=== PATIENT | male | born 1955 | race Caucasian/White ===

== ENCOUNTER → 2020-06-13 13:44 | Outpatient (BNVA) | payer MEDICAID, SELFPAY | PROVIDERS: Visit Provider Nurse Practitioner | DX: Z76.89 Persons encountering health services in other specified circumstances (principal) ==

== ENCOUNTER → 2020-12-12 13:46 | Outpatient (BNVA) | payer MEDICARE, MEDICAID, SELFPAY | PROVIDERS: Visit Provider Nurse Practitioner | DX: Z13.89 Encounter for screening for other disorder (principal) | CPT/HCPCS: Q3014 ==

== ENCOUNTER 2021-02-15 16:00 | Outpatient (RCR) | payer MEDICARE, SELFPAY | END 2021-03-09 10:26 | disposition home or self-care (01) | LOC: HO.PT 16:00 | PROVIDERS: PCP Internal Medicine; Visit Provider Internal Medicine | DX: M54.9 Dorsalgia, unspecified (principal) | CPT/HCPCS: 97110; 97140; 97150; 97162; 97530 ==

== ENCOUNTER 2021-05-10 15:30 | Outpatient (RCR) | payer MEDICARE, SELFPAY | END 2021-06-02 09:13 | disposition home or self-care (01) | LOC: HO.PT 15:30 | PROVIDERS: Visit Provider Internal Medicine | DX: R42 Dizziness and giddiness (principal) | CPT/HCPCS: 95992; 97162 ==

== ENCOUNTER → 2021-06-19 15:33 | Outpatient (BNVA) | payer OTHER, SELFPAY | PROVIDERS: PCP Internal Medicine; Visit Provider Nurse Practitioner ==

== ENCOUNTER 2021-11-21 12:58 | Outpatient (REF) | payer OTHER, SELFPAY | END 2021-11-21 12:59 | disposition home or self-care (01) | LOC: HO.XRAY 12:58 | PROVIDERS: Absent Provider Internal Medicine; PCP Internal Medicine; Visit Provider Family Medicine | DX: Z13.89 Encounter for screening for other disorder (principal) ==

== ENCOUNTER 2022-01-03 08:49 | Outpatient (REF) | payer OTHER, SELFPAY ==
--- NOTE | ~2022-01-03 | XR_ITS ---
EXAMINATION: XR SINUSES CLINICAL INFORMATION: Chronic frontal sinusitis COMPARISON: None TECHNIQUE: 3 views of the sinuses were obtained. FINDINGS: Paranasal sinuses appear clear without air-fluid levels. No fractures are identified. No radiodense foreign bodies. XR/XR sinus min 3V IMPRESSION: Unremarkable examination.
== END 2022-01-03 08:50 | disposition home or self-care (01) ==
LOC: HO.XRAY 08:49
PROVIDERS: Visit Provider Internal Medicine
DX: J32.1 Chronic frontal sinusitis (principal)
CPT/HCPCS: 70220

== ENCOUNTER → 2022-02-08 12:31 | Outpatient (BNVA) | payer OTHER, SELFPAY | PROVIDERS: PCP Internal Medicine; Visit Provider Internal Medicine Pulmonary Disease | DX: J45.909 Unspecified asthma, uncomplicated (principal); R06.09 Other forms of dyspnea | CPT/HCPCS: 99202 ==

== ENCOUNTER 2022-02-12 13:07 | Outpatient (REF) | payer OTHER, SELFPAY ==
[2022-02-12 13:21] LABS: MANUAL DIFF FLAG NO
[2022-02-12 13:47] LABS: Basophils Percent Auto 0.9 % (0-2); Eosinophils Absolute Auto 0.1 X10*3/uL (0.0-0.4); Eosinophils Percent Auto 2.2 % (0-4); Hematocrit 40.8 % (42.0-52.0); Hemoglobin 13.6 g/dl (14.0-18.0); Imm Gran Abs Auto 0.01 X10*3/uL (0.00-0.03); Imm Gran Pct Auto 0.2 % (0.0-0.4); Lymphocytes Absolute Auto 1.6 X10*3/uL (1.2-4.9); Lymphocytes Percent Auto 36.9 % (20-40); Mean Corpuscular HGB Conc 33.3 g/dl (31.0-36.0); Mean Corpuscular Hemoglobin 30.5 pg (27.0-33.0); Mean Corpuscular Volume 91.5 fL (80.0-98.0); Mean Platelet Volume 9.2 fL (9.4-12.4); Monocytes Absolute Auto 0.4 X10*3/uL (0.1-1.2); Monocytes Percent Auto 9.7 % (2-11); Neutrophils Absolute Auto 2.2 x10*3/uL (2.0-8.3); Neutrophils Percent Auto 50.1 % (45-73); Platelet Count 150 X10*3/uL (160-400); Red Blood Count 4.46 X10*6/uL (4.60-5.80); Red Cell Distribution Width 12.3 % (11.0-16.0); White Blood Count 4.5 X10*3/uL (4.8-10.8)
== END 2022-02-12 13:08 | disposition home or self-care (01) ==
LOC: HO.LAB 13:07
PROVIDERS: PCP Internal Medicine; Visit Provider Internal Medicine Pulmonary Disease
DX: J45.909 Unspecified asthma, uncomplicated (principal)
CPT/HCPCS: 36415; 82785; 85025; 86003

== ENCOUNTER 2022-04-09 12:00 | Outpatient (REF) | payer OTHER, SELFPAY ==
--- NOTE | 2022-04-09 17:33 | PFT_ITS ---
INDICATION: Dyspnea. SPIROMETRY: FEV1 to FVC of 84% with an FEV1 of 3.39 L, which is at 94% predicted; FVC of 4.03 L, which is 37% predicted. Post bronchodilators, there was a significant improvement of the FEV1 by 13%. The maximum voluntary ventilation 77% predicted. LUNG VOLUMES: Total lung capacity 85% predicted with an expiratory reserve volume of 18% predicted secondary to an elevated BMI. DIFFUSION CAPACITY: DLCO 76% predicted, correcting to 95% when correcting for the alveolar volume. COMPARISONS: None. INTERPRETATION: No obstructive nor restrictive ventilatory defects identified. The patient did have a significant response to bronchodilators noted. Mild decrease in maximum voluntary ventilation secondary to likely deconditioning. Lung volumes are low normal, secondary to likely elevated BMI. There is some mild diffusion impairment, although it corrects to normal when correcting for the alveolar volume. Clinical correlation warranted. Channing Pedraza MD MR/MODL / [id number]
== END 2022-04-09 12:01 | disposition home or self-care (01) ==
LOC: HO.RESP 12:00
PROVIDERS: PCP Internal Medicine; Visit Provider Internal Medicine Pulmonary Disease
DX: J45.909 Unspecified asthma, uncomplicated (principal); R06.00 Dyspnea, unspecified; Z91.09 Other allergy status, other than to drugs and biological substances
CPT/HCPCS: 94060; 94727; 94729; 99212

== ENCOUNTER 2022-04-25 10:11 | Outpatient (REF) | payer OTHER, SELFPAY | END 2022-04-25 10:12 | disposition home or self-care (01) | LOC: HO.MDS 10:11 | PROVIDERS: Visit Provider Internal Medicine Pulmonary Disease | DX: J45.50 Severe persistent asthma, uncomplicated (principal) | CPT/HCPCS: 96372; J2357 ==

== ENCOUNTER 2022-05-08 11:40 | Outpatient (REF) | payer OTHER, SELFPAY ==
--- NOTE | ~2022-05-08 | XR_ITS ---
EXAMINATION: XR KNEE, LEFT CLINICAL INFORMATION: Pain COMPARISON: None TECHNIQUE: Four views of the left knee. FINDINGS: Bone alignment is normal. No fracture or dislocation is seen. There is joint space narrowing at the femoral tibial joints. There is degenerative meniscal calcification. There are small osteophytes at the patellofemoral joint. There is no joint effusion. XR/XR knee LT 4V IMPRESSION: Degenerative changes.
== END 2022-05-08 11:41 | disposition home or self-care (01) ==
LOC: HO.XRAY 11:40
PROVIDERS: Absent Provider Internal Medicine; PCP Internal Medicine; Visit Provider Emergency Medicine
DX: M25.562 Pain in left knee (principal)
CPT/HCPCS: 73564

== ENCOUNTER 2022-05-09 11:29 | Outpatient (REF) | payer OTHER, SELFPAY | END 2022-05-09 11:30 | disposition home or self-care (01) | LOC: HO.MDS 11:29 | PROVIDERS: Visit Provider Internal Medicine Pulmonary Disease | DX: J45.50 Severe persistent asthma, uncomplicated (principal) | CPT/HCPCS: 96372; J2357 ==

== ENCOUNTER 2022-06-08 12:50 | Outpatient (REF) | payer OTHER, SELFPAY | END 2022-06-08 12:51 | disposition home or self-care (01) | LOC: HO.MDS 12:50 | PROVIDERS: Visit Provider Internal Medicine Pulmonary Disease | DX: J45.50 Severe persistent asthma, uncomplicated (principal) | CPT/HCPCS: 96372 ==

== ENCOUNTER 2022-06-25 13:21 | Outpatient (REF) | payer OTHER, SELFPAY | END 2022-06-25 13:22 | disposition home or self-care (01) | LOC: HO.HOSX 13:21 | PROVIDERS: Visit Provider Physician Assistant | DX: Z13.89 Encounter for screening for other disorder (principal) ==

== ENCOUNTER 2022-07-10 10:49 | Outpatient (REF) | payer OTHER, SELFPAY ==
--- NOTE | ~2022-07-10 | XR_ITS ---
EXAMINATION: KNEE X-RAY CLINICAL INFORMATION: Pain COMPARISON: Left knee x-ray April 2022 TECHNIQUE: Standing AP view of both knees and lateral and sunrise view of the right knee FINDINGS: Right knee: There may be mild medial subluxation of the distal femur respect to the proximal tibia. Bone alignment is otherwise normal. No fracture or dislocation. There is tricompartment arthritis and degenerative meniscal calcification. There is a small joint effusion. Standing AP view of the left knee demonstrates arthritis and degenerative meniscal calcification at the femoral tibial joints. XR/XR knee standing BI IMPRESSION: Right knee: Tricompartment arthritis and small joint effusion.
--- NOTE | ~2022-07-10 | XR_ITS ---
EXAMINATION: XR CHEST CLINICAL INFORMATION: Chest wall pain COMPARISON: None TECHNIQUE: 2 views of the chest were obtained. FINDINGS: No significant abnormality is noted involving the heart, lungs, mediastinum, bony thorax or soft tissues. XR/XR chest 2V IMPRESSION: Unremarkable chest exam
--- NOTE | ~2022-07-10 | XR_ITS ---
EXAMINATION: KNEE X-RAY CLINICAL INFORMATION: Pain COMPARISON: Left knee x-ray April 2022 TECHNIQUE: Standing AP view of both knees and lateral and sunrise view of the right knee FINDINGS: Right knee: There may be mild medial subluxation of the distal femur respect to the proximal tibia. Bone alignment is otherwise normal. No fracture or dislocation. There is tricompartment arthritis and degenerative meniscal calcification. There is a small joint effusion. Standing AP view of the left knee demonstrates arthritis and degenerative meniscal calcification at the femoral tibial joints. XR/XR knee RT 2V IMPRESSION: Right knee: Tricompartment arthritis and small joint effusion.
== END 2022-07-10 10:50 | disposition home or self-care (01) ==
LOC: HO.XRAY 10:49
PROVIDERS: PCP Family Medicine; Visit Provider Family Medicine
DX: M25.561 Pain in right knee (principal); M25.562 Pain in left knee; R07.89 Other chest pain
CPT/HCPCS: 71046; 73560; 73565

== ENCOUNTER → 2022-07-20 12:11 | Outpatient (BNVA) | payer OTHER, SELFPAY | PROVIDERS: PCP Family Medicine; Visit Provider Nurse Practitioner | DX: K59.04 Chronic idiopathic constipation (principal); K21.9 Gastro-esophageal reflux disease without esophagitis | CPT/HCPCS: 99212 ==

== ENCOUNTER → 2022-08-29 13:41 | Outpatient (BNVA) | payer OTHER, SELFPAY | PROVIDERS: PCP Family Medicine; Visit Provider Nurse Practitioner | DX: Z01.818 Encounter for other preprocedural examination (principal); K59.04 Chronic idiopathic constipation; K21.9 Gastro-esophageal reflux disease without esophagitis; D12.6 Benign neoplasm of colon, unspecified | CPT/HCPCS: 99212 ==

== ENCOUNTER 2022-08-31 14:23 | Outpatient (REF) | payer OTHER, SELFPAY ==
[2022-08-31 15:17] LABS: Alanine Aminotransferase 17 U/L (0-40); Albumin Level 4.1 g/dL (3.5-5.0); Alkaline Phosphatase 47 U/L (39-117); Anion Gap 14 (12-20); Aspartate Amino Transferase 25 U/L (5-37); Bilirubin Total 0.7 mg/dL (0.0-1.0); Blood Urea Nitrogen 13 mg/dL (9-16); Calcium 8.9 mg/dL (8.4-10.2); Carbon Dioxide 23 mmol/L (22-29); Chloride 107 mmol/L (96-108); Estimated Glomerular Filt Rate > 60; Glucose Random 131 mg/dL (60-115); Potassium 4.2 mmol/L (3.3-5.1); Sodium 140 mmol/L (135-145); Total Protein 6.9 g/dL (6.5-8.0)
== END 2022-08-31 14:24 | disposition home or self-care (01) ==
LOC: HO.LAB 14:23
PROVIDERS: Visit Provider Nurse Practitioner
DX: Z01.818 Encounter for other preprocedural examination (principal); D12.6 Benign neoplasm of colon, unspecified; J45.909 Unspecified asthma, uncomplicated
CPT/HCPCS: 36415; 80053; 82785

== ENCOUNTER → 2022-09-05 13:09 | Outpatient (BNVA) | payer OTHER, SELFPAY | PROVIDERS: PCP Family Medicine; Visit Provider Internal Medicine Pulmonary Disease | DX: J45.909 Unspecified asthma, uncomplicated (principal); Z91.09 Other allergy status, other than to drugs and biological substances; Z79.899 Other long term (current) drug therapy | CPT/HCPCS: 99212 ==

== ENCOUNTER → 2022-12-13 14:40 | Outpatient (BNVA) | payer OTHER, SELFPAY | PROVIDERS: PCP Family Medicine; Visit Provider Nurse Practitioner | DX: K59.04 Chronic idiopathic constipation (principal); K21.9 Gastro-esophageal reflux disease without esophagitis; D12.6 Benign neoplasm of colon, unspecified | CPT/HCPCS: 99212 ==

== ENCOUNTER 2023-01-28 10:02 | Emergency (ER) | payer OTHER, SELFPAY ==
--- NOTE | 2023-01-28 10:59 | ED.GENADULT ---
HPI - General Adult General Chief complaint: General Medical Time Seen by Provider: 01/28/23 10:56 Source: patient Mode of arrival: ambulatory Limitations: language barrier History of Present Illness HPI narrative: Patient is a 67 year old assigned male at with a history of HTN presenting to the emergency department today with intermittent lightheadedness since switching his blood pressure medications. Patient states that he switched his blood pressure medications a little while ago and ever since he has been having intermittent bouts of lightheadedness. Patient states that he was seen by a new doctor who put him back on his original medication, he is starting to feel better but still wants to be checked. Patient denies any dizziness, abdominal pain, nausea, vomiting, fever, chills, blurry vision, double vision, loss of vision, chest pain, difficulty breathing, shortness of breath, back pain, night sweats, pain with urination, increased urinary frequency, increased urinary urgency, blood in his urine or stool, syncope or a near syncopal episode, recent trauma or falls, bowel incontinence, bladder incontinence, bowel retention, bladder retention, or any other complaints at this time. Onset (ago): day(s) Severity: mild Severity scale (1-10): 2 Relieving factors: none Exacerbating factors: none Associated symptoms: denies other symptoms Treatments prior to arrival: none Related Data Home Medications Medication Instructions Recorded Confirmed acetaminophen 500 mg tablet 500 mg PO Q6H PRN 02/08/22 budesonide-formoterol HFA 160 inhalation 02/08/22 mcg-4.5 mcg/actuation aerosol inhaler (Symbicort) fluticasone propionate 50 spray intranasal 02/08/22 mcg/actuation nasal spray,suspension gabapentin 800 mg tablet 800 mg PO TID 02/08/22 loratadine 10 mg tablet (Allergy 10 mg PO DAILY 02/08/22 Relief (loratadine)) montelukast 10 mg tablet 10 mg PO DAILY 02/08/22 quetiapine 300 mg tablet 300 mg PO BEDTIME 02/08/22 temazepam 15 mg capsule 15 mg PO BEDTIME PRN 02/08/22 terazosin 5 mg capsule 5 mg PO BEDTIME 02/08/22 valsartan 80 mg tablet 80 mg PO DAILY 02/08/22 albuterol sulfate 90 mcg/actuation 2 inh inhalation PRN 08/29/22 aerosol inhaler lidocaine 5 % topical ointment topical QAM 08/29/22 tramadol 50 mg tablet 100 mg PO Q8H PRN severe pain 08/29/22 docusate sodium 100 mg capsule 100 mg PO DAILY 12/13/22 (Stool Softener) ketotifen fumarate 0.025 % (0.035 1 drp ophthalmic (eye) BID 12/13/22 %) eye drops magnesium hydroxide 400 mg/5 mL 400 mg PO DAILY PRN 12/13/22 oral suspension (Barron Milk of Magnesia) olmesartan 20 mg tablet 20 mg PO QAM 12/13/22 polyvinyl alcohol 1.4 % eye drops 1 drp ophthalmic (eye) TID-QID PRN 12/13/22 (Artificial Tears (polyvinyl alcohol)) sildenafil 100 mg tablet 100 mg PO DAILY PRN 12/13/22 Previous Rx's Medication Instructions Recorded linaclotide 72 mcg capsule 72 mcg PO QAM #30 caps 08/29/22 (Linzess) omeprazole 20 mg capsule,delayed 20 mg PO BID #60 caps 08/29/22 release peg 3350-electrolytes 236 240 ml PO Q10M 1 day #4,000 mL 08/29/22 gram-22.74 gram-6.74 gram-5.86 gram solution (Golytely) linaclotide 145 mcg capsule 145 mcg PO QAM #30 caps 12/13/22 (Linzess) Allergies Allergy/AdvReac Type Severity Reaction Status Date / Time aspirin [ASPIRIN] Allergy Severe ANAPHYLAXIS, Verified 12/13/22 14:48 rash Review of Systems Constitutional: Constitutional: Reports no additional constitutional complaints, Denies chills, Denies fever(s) and Denies night sweats Eyes: Eyes: Reports no additional eye complaints, Denies blurry vision, Denies change in vision, Denies diplopia, Denies eye discharge, Denies loss of vision and Denies eye pain ENT: Denies dizziness Cardiovascular: Cardiovascular: Reports no additional cardiovascular complaints, Denies chest pain, Denies lightheadedness, Denies Loss of Consciousness and Denies dyspnea Respiratory: Respiratory: Reports no additional respiratory complaints and Denies dyspnea Gastrointestinal: Gastrointestinal: Reports no additional gastrointestinal complaints, Denies abdominal pain, Denies melena, Denies hematochezia, Denies change in bowel habits and Denies change in stool character Genitourinary: Genitourinary: Reports no additional male genitourinary complaints, Denies hematuria, Denies oliguria, Denies difficulty urinating, Denies dysuria, Denies urinary frequency, Denies urinary hesitancy, Denies urinary incontinence and Denies urinary urgency Musculoskeletal: Musculoskeletal: Reports no additional musculoskeletal complaints, Denies numbness and Denies tingling Neurologic: Denies dizziness, Denies loss of vision, Denies numbness and Denies tingling Comments: lightheadedness Psychiatric: Psychiatric: Reports no additional psychiatric complaints Endocrine: Endocrine: Reports no additional endocrine complaints Hematologic/Lymphatic: Hematologic/Lymphatic: Reports no additional hematologic/lymphatic complaints Allergic/Immunologic: Allergic/Immunologic: Reports no additional allergic/immunologic complaints PMFSH Past Medical History Attestation statement: The following information was validated with the patient. Source: old records reviewed and nursing notes reviewed Surgical History Hx of colonoscopy Hx of hernia repair Hx of umbilical hernia repair Family History Family History Father Prostate cancer Mother Alzheimer disease Sister Cancer Social History Social History Alcohol intake: current Alcohol intake frequency: does not drink Patient Tobacco Use Status: Former Tobacco user Advance Directives: No Advance Directives Information Provided: Yes Physical Exam ED Vital Signs: Vital Signs - 24 hr 01/28/23 11:01 Temperature 98 F Pulse Rate 89 Respiratory Rate 12 Blood Pressure 139/75 Pulse Oximetry 96 Oxygen Delivery Method Room Air BMI result Body Mass Index 32.8 Const General: cooperative, no acute distress, alert and awake Nutritional Appearance: well nourished Orientation/consciousness: patient oriented x3 Limitations: no limitations [facility] Head: Yes normal to inspection and Yes atraumatic Ears: hearing grossly normal bilaterally and external ears normal General nose exam: Normal external nose present, no nasal discharge noted and no epistaxis Face and sinus: Yes normal facial exam, No abrasion and No laceration Mouth: Normal oral and palatal mucosa present, no drooling and no muffled voice Eyes General: appearance normal, both eyes and all related structures Periorbital: periorbital findings normal Eyelids: Yes eyelids normal Conjunctivae: conjunctivae normal Pupils: Equal, round and reactive pupils present EOM: EOMs intact bilaterally Neck Neck: Yes normal visual inspection, Yes full ROM and Yes no lymphadenopathy Chest Chest palpation & inspection: normal inspection of the chest Resp Effort & Inspection: normal respiratory effort and able to speak in complete sentences Auscultation: clear to auscultation bilaterally Cardio Rate: regular rate Rhythm: regular rhythm GI Inspection: Yes normal to inspection Palpation (GI): Soft to palpation, not firm, nontender and no guarding Neuro General: patient oriented x3 and moves all extremities Cranial nerves: Yes Equal, round and reactive pupils present Cognition (Neuro): normal cognition Motor exam (neuro): 5/5 motor strength present throughout Sensory Exam: Normal double simultaneous stimulation for sensation Coordination: [id number] test normal Extrem General: Yes normal to inspection, Yes full ROM and Yes capillary refill normal Psych Appearance: grossly normal Mental Status: mental status grossly normal Affect: normal affect Attitude: cooperative Thought process: Normal thought process present Thought content: Normal thought content present Insight: Good insight present (Psych) Medical Decision Making Medical Decision Making [facility] Narrative: Patient is a 67 year old assigned male at with a history of HTN presenting to the emergency department today with intermittent lightheadedness after a medication change. Patient's physical exam was unremarkable. Patient's blood work was unremarkable. Patient's EKG was unremarkable. I explained my physical exam findings as well as all test results to the patient. I answered all questions asked by the patient. I stressed the importance of the patient taking his medication as prescribed including reverting back to his old HTN medication and stopping his new one. I stressed the importance of the patient following up with his new primary care provider. I stressed the importance of the patient returning to the emergency department immediately if his symptoms were to worsen or if he were to develop any dizziness, shortness of breath, difficulty breathing, chest pain, blurry vision, loss of vision, nausea, vomiting, abdominal pain, fever, chills, back pain, or any other complaints. Patient verbalized agreement and understanding with this treatment plan and discharge. Differential Diagnosis Differential Diagnoses: The differential diagnosis associated with the presentation includes HTN Hypotension Adverse reaction to medication Orthostatic hypotension Lightheadedness Arrythmia Admission/Observation Consideration of admission/observation: Escalation of care including admission/observation considered Patient would have been admitted to the hospital had his work up had any findings where hospital admission was appropriate and his clinical presentation warranted hospital admission. Lab Data [facility] Lab Attestation statement: I reviewed the patient's lab results. My interpretation of these studies and their corresponding values is that they are grossly normal. 01/28/23 11:22 01/28/23 11:22 Labs: Lab Results 01/28/23 01/28/23 01/28/23 Range/Units 11:22 11:22 11:22 WBC 4.0 L (4.8-10.8) X10*3/uL RBC 4.53 L (4.60-5.80) X10*6/uL Hgb 13.8 L (14.0-18.0) g/dl Hct 42.1 (42.0-52.0) % MCV 92.9 (80.0-98.0) fL MCH 30.5 (27.0-33.0) pg MCHC 32.8 (31.0-36.0) g/dl RDW 11.9 (11.0-16.0) % Plt Count 133 L (160-400) X10*3/uL MPV 8.9 L (9.4-12.4) fL Immature Gran % (Auto) 0.0 (0.0-0.4) % Neut % (Auto) 60.2 (45-73) % Lymph % (Auto) 29.9 (20-40) % [place] % (Auto) 7.7 (2-11) % Eos % (Auto) 1.2 (0-4) % Baso % (Auto) 1.0 (0-2) % Lymph # (Auto) 1.2 (1.2-4.9) X10*3/uL [place] # (Auto) 0.3 (0.1-1.2) X10*3/uL Eos # (Auto) 0.1 (0.0-0.4) X10*3/uL Baso # (Auto) 0.0 (0.0-0.2) X10*3/uL Abs Immat Gran (auto) 0.00 (0.00-0.03) X10*3/uL Absolute Neuts (auto) 2.4 (2.0-8.3) x10*3/uL Absolute Nucleated RBC 0.000 (0.0-0.012) X10*3/uL Nucleated RBC % (auto) 0.0 (0.0-0.2) /100WBC Sodium 141 (135-145) mmol/L Potassium 4.4 (3.3-5.1) mmol/L Chloride 108 (96-108) mmol/L Carbon Dioxide 22 (22-29) mmol/L Anion Gap 15 (12-20) BUN 15 (9-16) mg/dL Creatinine 0.83 (0.5-1.4) mg/dL Estim Creat Clear Calc 107.2 Estimated GFR > 60 Random Glucose 113 (60-115) mg/dL Calcium 9.5 D (8.4-10.2) mg/dL Magnesium 2.1 (1.6-2.6) mg/dL Total Bilirubin 0.5 (0.0-1.0) mg/dL AST 25 (5-37) U/L ALT 18 (0-40) U/L Alkaline Phosphatase 41 (39-117) U/L Troponin I High Sens < 2.7 (<3.5-35.0) ng/L B-Natriuretic Peptide (<100) pg/mL Total Protein 7.4 (6.5-8.0) g/dL Albumin 4.1 (3.5-5.0) g/dL 01/28/23 Range/Units 11:22 WBC (4.8-10.8) X10*3/uL RBC (4.60-5.80) X10*6/uL Hgb (14.0-18.0) g/dl Hct (42.0-52.0) % MCV (80.0-98.0) fL MCH (27.0-33.0) pg MCHC (31.0-36.0) g/dl RDW (11.0-16.0) % Plt Count (160-400) X10*3/uL MPV (9.4-12.4) fL Immature Gran % (Auto) (0.0-0.4) % Neut % (Auto) (45-73) % Lymph % (Auto) (20-40) % [place] % (Auto) (2-11) % Eos % (Auto) (0-4) % Baso % (Auto) (0-2) % Lymph # (Auto) (1.2-4.9) X10*3/uL [place] # (Auto) (0.1-1.2) X10*3/uL Eos # (Auto) (0.0-0.4) X10*3/uL Baso # (Auto) (0.0-0.2) X10*3/uL Abs Immat Gran (auto) (0.00-0.03) X10*3/uL Absolute Neuts (auto) (2.0-8.3) x10*3/uL Absolute Nucleated RBC (0.0-0.012) X10*3/uL Nucleated RBC % (auto) (0.0-0.2) /100WBC Sodium (135-145) mmol/L Potassium (3.3-5.1) mmol/L Chloride (96-108) mmol/L Carbon Dioxide (22-29) mmol/L Anion Gap (12-20) BUN (9-16) mg/dL Creatinine (0.5-1.4) mg/dL Estim Creat Clear Calc Estimated GFR Random Glucose (60-115) mg/dL Calcium (8.4-10.2) mg/dL Magnesium (1.6-2.6) mg/dL Total Bilirubin (0.0-1.0) mg/dL AST (5-37) U/L ALT (0-40) U/L Alkaline Phosphatase (39-117) U/L Troponin I High Sens (<3.5-35.0) ng/L B-Natriuretic Peptide 32 (<100) pg/mL Total Protein (6.5-8.0) g/dL Albumin (3.5-5.0) g/dL Independent Interpretation I performed an independent interpretation of an: EKG Interpretation: Vent. Rate: 079 BPM ? ? Atrial Rate: 079 BPM P-R Int: 170 ms? QRS Dur: 096 ms QT Int: 408 ms ? ? ? P-R-T Axes: 033 -15 030 degrees QTc Int: 467 ms ? Normal sinus rhythm Normal ECG No previous ECGs available DD/ 1106 Chronic Conditions Patient?s care impacted by: Hypertension Discharge Plan Discharge Clinical Impression: Medication course changed Patient Disposition: Home, Self-Care Instructions: Hypertension (ED) Additional Instructions: Follow up with your primary care provider. Return to the emergency department immediately if your symptoms worsen or if you develop any dizziness, shortness of breath, difficulty breathing, chest pain, blurry vision, loss of vision, nausea, vomiting, abdominal pain, fever, chills, back pain, or any other complaints. Lillie un seguimiento con lopez proveedor de atenci?n primaria. Regrese al departamento de emergencias de inmediato si julia s?ntomas empeoran o si presenta mareos, falta de aire, dificultad para respirar, dolor de pecho, visi?n borrosa, p?rdida de la visi?n, n?useas, v?mitos, dolor abdominal, fiebre, escalofr?os, dolor de espalda o cualquier otras quejas. Prescriptions: No Action budesonide-formoterol [Symbicort] 160-4.5 mcg/actuation HFA aerosol inhaler inhalation loratadine [Allergy Relief (loratadine)] 10 mg tablet 10 mg PO DAILY fluticasone propionate 50 mcg/actuation spray,suspension intranasal montelukast 10 mg tablet 10 mg PO DAILY gabapentin 800 mg tablet 800 mg PO TID quetiapine 300 mg tablet 300 mg PO BEDTIME terazosin 5 mg capsule 5 mg PO BEDTIME valsartan 80 mg tablet 80 mg PO DAILY acetaminophen 500 mg tablet 500 mg PO Q6H PRN temazepam 15 mg capsule 15 mg PO BEDTIME PRN albuterol sulfate 90 mcg/actuation HFA aerosol inhaler 2 inh inhalation PRN magnesium hydroxide [Barron Milk of Magnesia] 400 mg/5 mL suspension 400 mg PO DAILY PRN olmesartan 20 mg tablet 20 mg PO QAM Linzess 145 mcg capsule 145 mcg PO QAM Qty: 30 6RF docusate sodium [Stool Softener] 100 mg capsule 100 mg PO DAILY ketotifen fumarate 0.025 % (0.035 %) drops 1 drp ophthalmic (eye) BID Rx Instructions: administer at least 8 hours apart polyvinyl alcohol [Artificial Tears (polyvin alc)] 1.4 % drops 1 drp ophthalmic (eye) TID-QID PRN sildenafil 100 mg tablet 100 mg PO DAILY PRN Rx Instructions: administer 30 minutes to 4 hours before activity tramadol 50 mg tablet 100 mg PO Q8H PRN (Reason: severe pain) lidocaine 5 % ointment topical QAM Linzess 72 mcg capsule 72 mcg PO QAM Qty: 30 4RF Hold Instructions: Doctor's Order omeprazole 20 mg capsule,delayed release(DR/EC) 20 mg PO BID Qty: 60 4RF peg 3350-electrolytes [Golytely] 236-22.74-6.74 -5.86 gram recon soln 240 ml PO Q10M 1 Days Qty: 4000 0RF Rx Instructions: until fecal effluent is clear; do not exceed a total volume of 2,000 mL Referrals: [facility] [place] Family Medicine [Provider Group] (Call to establish and follow up with a primary care provider. If you already have a primary care provider, please follow up with them. Llame para establecer y hacer un seguimiento con un proveedor de atenci?n primaria. Si ya tiene un proveedor de atenci?n primaria, lillie un seguimiento con ?l.) [facility] [place] Primary [facility] [Provider Group] (Call to establish and follow up with a primary care provider. If you already have a primary care provider, please follow up with them. Llame para establecer y hacer un seguimiento con un proveedor de atenci?n primaria. Si ya tiene un proveedor de atenci?n primaria, lillie un seguimiento con ?l.) [facility] [place] Primary [facility] [Provider Group] (Call to establish and follow up with a primary care provider. If you already have a primary care provider, please follow up with them. Llame para establecer y hacer un seguimiento con un proveedor de atenci?n primaria. Si ya tiene un proveedor de atenci?n primaria, lillie un seguimiento con ?l.) Interventions: ED Discharge Assessment Last Done: 01/28/23 12:11 Discharge Date/Time: 01/28/23 12:12 Print Language: Iranian
[2023-01-28 11:01] VITALS: BP 139/75; PULSE 89; RESP 12; TEMP 36.6; O2SAT 96; BMI 32.8
[2023-01-28 11:52] LABS: Alanine Aminotransferase 18 U/L (0-40); Albumin Level 4.1 g/dL (3.5-5.0); Alkaline Phosphatase 41 U/L (39-117); Anion Gap 15 (12-20); Aspartate Amino Transferase 25 U/L (5-37); Bilirubin Total 0.5 mg/dL (0.0-1.0); Blood Urea Nitrogen 15 mg/dL (9-16); Calcium 9.5 mg/dL (8.4-10.2); Carbon Dioxide 22 mmol/L (22-29); Chloride 108 mmol/L (96-108); Creatinine Clr Calc Pharmacy 107.2; Estimated Glomerular Filt Rate > 60; Glucose Random 113 mg/dL (60-115); Magnesium 2.1 mg/dL (1.6-2.6); Potassium 4.4 mmol/L (3.3-5.1); Sodium 141 mmol/L (135-145); Total Protein 7.4 g/dL (6.5-8.0)
== END 2023-01-28 12:12 | disposition home or self-care (01) ==
PROVIDERS: Physician Assistant Medical; Emergency Provider Emergency Medicine
DX: R42 Dizziness and giddiness (principal); R06.02 Shortness of breath; I10 Essential (primary) hypertension; Z79.899 Other long term (current) drug therapy
CPT/HCPCS: 36415; 80053; 83735; 83880; 84484; 85025; 93005; 99283

== ENCOUNTER → 2023-01-28 10:59 | Outpatient (BNV) | payer OTHER, SELFPAY | PROVIDERS: Emergency Provider Emergency Medicine; Visit Provider Internal Medicine Cardiovascular Disease | DX: R42 Dizziness and giddiness (principal) | CPT/HCPCS: 93010 ==

== ENCOUNTER 2023-01-30 08:06 | Outpatient (AMB) | payer OTHER, SELFPAY ==
--- NOTE | 2023-01-30 08:25 | MHC.OFFVIS ---
Intake Vital Signs 01/30/23 08:51 Height 5 ft 11 in Weight 236 lb 12.423 oz BMI 33.0 BP 153/75 H Blood Pressure Location Lt brachial Position Sitting Pulse 79 Intake Visit Reasons: 6 Month Follow up Intake Note: Chinese presents in office as a est.patient for a 6month f/u PT CC: pt reports having constipation pt denies any other GI Issues Installation Engineer Required: Yes Installation Engineer Language: Kyrgyz Accompanied by: Self / Same As Patient Allergies aspirin [ASPIRIN] Allergy (Severe, Verified 01/30/23 08:52) ANAPHYLAXIS, rash HPI 6 Month Follow up HPI Details Assessment & Plan (1) Chronic idiopathic constipation: ?Code(s): K59.04 - Chronic idiopathic constipation ?Plan: He has not yet been contacted to schedule the colonoscopy. He added steele flavored mom because he was not moving his bowels enough with the LInzess 72mcg. I think we will try increasing it to 145 micro g.? If this causes too much diarrhea that he continue on 72 mcg along with his milk of magnesia but I would like to simplify his regimen. He continues on his omeprazole bid with good control of his GERD. ROV 6 weeks. (2) GERD (gastroesophageal reflux disease): ?Code(s): K21.9 - Gastro-esophageal reflux disease without esophagitis (3) Tubular adenoma of colon: ?Comment: 2019 scope repeat 5 years ?Code(s): D12.6 - Benign neoplasm of colon, unspecified ? ? ? Medications: New linaclotide (Linze ss) 145 mcg? PO QAM 30 caps 6RF K59.04 - Chronic i diopathic constipa tion ? linaclotide (Linze ss) 145 mcg? PO QAM 30 caps 6RF K59.04 - Chronic i diopathic constipa tion ? On Hold linaclotide (Linze ss) ?? Hold Commen t:? Doctor's Order 72 mcg? PO QAM 30 caps 4RF ? ? COLONOSCOPY Scheduled for 03/06/2023. BIOPSY TODAY'S VISIT Kyrgyz #[id number], Rosalina He received the Linzess at 145 micro g but despite taking it every morning with a full glass of water he still not moving his bowels well. We will now advance him to the maximum dose of 290 micro g and titrate this with [id number] depending on his response. Because this is taken awhile to stabilize I want to see him in 2 weeks so we can get him to optimal bowel motility sooner. Return office visit in 2 weeks PFSH Surgical History Hx of colonoscopy Hx of hernia repair Hx of umbilical hernia repair Family History Father Prostate cancer Mother Alzheimer disease Sister Cancer Social History Alcohol intake: current Alcohol intake frequency: does not drink Patient Tobacco Use Status: Former Tobacco user Review of Systems Const Denies fatigue, Denies fever(s), Denies night sweats, Denies poor appetite and Denies weight loss Eyes Details: glasses Reports requires corrective lenses ENT Reports Normal hearing present, Denies dental pain, Denies dysphagia, Denies hearing loss, Denies mouth pain, Denies odynophagia, Denies throat swelling, Denies tongue swelling and Reports other (Dentition adequate) Card Reports no additional complaints Resp Reports no additional complaints GI Denies abdominal pain, Denies melena, Denies bloating, Denies hematochezia, Reports constipation, Denies GI cramping, Denies dysphagia, Denies excessive flatus, Denies early satiety, Reports heartburn, Denies diarrhea, Denies nausea, Denies odynophagia, Denies vomiting and Denies hematemesis Skin/Breast Denies pruritus, Denies lesions, Denies rash and Denies jaundice Neuro Reports Normal hearing present and Denies Abnormal speech present Endo Denies fatigue Aller/Immun Denies throat swelling and Denies tongue swelling Physical Exam Const General: cooperative, no acute distress, well developed and well groomed Nutritional Appearance: well nourished and obese Orientation/consciousness: oriented to person, oriented to place and oriented to time Limitations: language barrier HEENT Head: Yes normocephalic and Yes atraumatic Eyes General: appearance normal, both eyes and all related structures Pupils: Equal, round and reactive pupils present Neck Neck: Yes normal visual inspection and Yes no lymphadenopathy Thyroid: Thyroid normal Resp Effort & Inspection: normal respiratory effort and able to speak in complete sentences Auscultation: clear to auscultation bilaterally Cardio Rate: regular rate Rhythm: regular rhythm Heart sounds: Normal, physiologic split S2 sound present Peripheral pulses: radial pulses present and posterior tibial pulses present GI Inspection: No distended, No Abdominal panniculus present and Yes obesity Palpation (GI): Soft to palpation, nontender, no guarding, not rigid and No hepatosplenomegaly present Percussion: Yes normal to percussion Auscultation: normal bowel sounds Rectal Exam - Male: Yes deferred Skin General skin exam: no rashes or lesions noted, turgor normal, skin not dry, no jaundice, No spider nevi and no striae Rashes: no rashes Nails: normal Neuro General: oriented to person, oriented to place and oriented to time Cranial nerves: Yes Equal, round and reactive pupils present and Yes Normal hearing present Speech: No Abnormal speech present Extrem General: Yes normal to inspection, No clubbing, No cyanosis and No edema Psych Appearance: grossly normal and well kempt Mental Status: mental status grossly normal Speech and movement: Normal speech and movement present Affect: normal affect Attitude: cooperative Thought process: Normal thought process present and not confabulating Thought content: Normal thought content present Insight: Limited insight present (Psych) Judgement: Limited judgement present (Psych) Assessment & Plan Assessment & Plan (1) Chronic idiopathic constipation: Code(s): K59.04 - Chronic idiopathic constipation Plan: Kyrgyz #[id number] He received the Linzess at 145 micro g but despite taking it every morning with a full glass of water he still not moving his bowels well. We will now advance him to the maximum dose of 290 micro g and titrate this with [id number] depending on his response. Because this is taken awhile to stabilize I want to see him in 2 weeks so we can get him to optimal bowel motility sooner. He continues on his omeprazole 20 mg twice a day with good control of his GERD. Return office visit in 2 weeks (2) GERD (gastroesophageal reflux disease): Code(s): K21.9 - Gastro-esophageal reflux disease without esophagitis (3) Tubular adenoma of colon: Comment: 2019 scope repeat 5 years Code(s): D12.6 - Benign neoplasm of colon, unspecified Medications: New linaclotide (Linzess) 290 mcg PO QAM 30 days 30 caps 6RF K59.04 - Chronic idiopathic constipation Discontinued linaclotide (Linzess) Discontinued Reason: Doctor's Order 72 mcg PO QAM 30 caps 4RF linaclotide (Linzess) Discontinued Reason: Doctor's Order 145 mcg PO QAM 30 caps 6RF K59.04 - Chronic idiopathic constipation Coding Level of Care Code Est Pt Level 3 (10496) Diagnoses Chronic idiopathic constipation K59.04 GERD (gastroesophageal reflux disease) K21.9 Tubular adenoma of colon D12.6
[2023-01-30 08:51] VITALS: BP 153/75; PULSE 79; BMI 33.0
== END 2023-01-30 09:10 | disposition home or self-care (01) ==
PROVIDERS: PCP Family Medicine; Visit Provider Nurse Practitioner
DX: K59.04 Chronic idiopathic constipation (principal); K21.9 Gastro-esophageal reflux disease without esophagitis; D12.6 Benign neoplasm of colon, unspecified
CPT/HCPCS: 99213

== ENCOUNTER → 2023-01-30 08:06 | Outpatient (BNVA) | payer OTHER, SELFPAY | PROVIDERS: PCP Family Medicine; Visit Provider Nurse Practitioner | DX: J45.909 Unspecified asthma, uncomplicated (principal); Z91.09 Other allergy status, other than to drugs and biological substances; K59.04 Chronic idiopathic constipation; K21.9 Gastro-esophageal reflux disease without esophagitis; D12.6 Benign neoplasm of colon, unspecified | CPT/HCPCS: 99212 ==

== ENCOUNTER 2023-01-30 10:07 | Outpatient (AMB) | payer OTHER, SELFPAY ==
[2023-01-30 11:20] VITALS: BP 120/70; PULSE 98; O2SAT 96; BMI 32.8
--- NOTE | 2023-01-30 11:20 | MHC.OFFVIS ---
Intake Vital Signs 01/30/23 11:20 Height 5 ft 11 in Weight 235 lb BMI 32.8 BP 120/70 Blood Pressure Location Lt brachial Position Sitting Pulse 98 Pulse Oximetry (%) 96 Intake Visit Reasons: asthma Intake Note: C/o blurry vision. Had ED visit last week for dizziness and low blood pressure. Allergies aspirin [ASPIRIN] Allergy (Severe, Verified 01/30/23 11:25) ANAPHYLAXIS, rash HPI asthma HPI Details 67-year-old gentleman, nonsmoker, followed for underlying severe persistent asthma and environmental allergies. Patient was tried on Xolair, however he did not believe it body symptomatic benefit. Now his on Symbicort, Flonase, and albuterol MDI with good control of his underlying symptoms. He denies any recent exacerbations. PFSH Surgical History Hx of colonoscopy Hx of hernia repair Hx of umbilical hernia repair Family History Father Prostate cancer Mother Alzheimer disease Sister Cancer Social History Alcohol intake: current Alcohol intake frequency: does not drink Patient Tobacco Use Status: Former Tobacco user Review of Systems Const Denies daytime sleepiness, Denies excessive sweating, Denies fatigue, Denies fever(s), Denies lethargy, Denies malaise, Denies night sweats, Denies snoring and Denies weight loss Eyes Denies blurry vision and Denies itchy eyes ENT Denies nasal congestion, Denies post nasal drip, Denies sinus pain, Denies sinus pressure and Denies other ( Thrush) Card Denies chest pain, Denies pedal edema, Denies dyspnea, Denies orthopnea and Denies paroxysmal nocturnal dyspnea Resp Denies cough, Denies hemoptysis, Denies excessive phlegm production, Denies dyspnea, Denies snoring and Denies wheezing GI Denies abdominal pain and Denies heartburn Musc Denies myalgias, Denies arthralgias and Denies joint swelling Skin/Breast Denies rash Neuro Denies memory loss and Denies seizure-like activity Psych Denies abnormal sleep pattern, Denies anxiety and Denies memory loss Endo Denies excessive sweating, Denies fatigue and Denies heat intolerance William/Lymph Denies easy bruising Aller/Immun Denies itchy eyes, Denies seasonal rhinorrhea and Denies wheezing Physical Exam Vital Signs: Last Vital Signs Pulse 98 01/30/23 11:20 BP 120/70 01/30/23 11:20 Pulse Ox 96 01/30/23 11:20 BMI result Body Mass Index 32.8 Const General: no acute distress and alert Nutritional Appearance: not obese Orientation/consciousness: Other orientation findings ( oriented) HEENT Head: Yes atraumatic Eyes General: appearance normal, both eyes and all related structures Sclerae: sclerae normal EOM: EOMs intact bilaterally Neck Neck: Yes supple Lymphatic: no lymphadenopathy noted Resp Effort & Inspection: normal respiratory effort and no use of accessory muscles Auscultation: clear to auscultation bilaterally Cardio Rate: regular rate Rhythm: regular rhythm Heart sounds: no gallops, no murmurs and no rubs Skin General skin exam: other ( warm) Extrem General: No clubbing, No cyanosis and No edema Assessment & Plan Assessment & Plan (1) Asthma: Code(s): J45.909 - Unspecified asthma, uncomplicated Plan: Well controlled on Symbicort and albuterol MDI. Continue current regimen. (2) Environmental allergies: Code(s): Z91.09 - Other allergy status, other than to drugs and biological substances Plan: Well controlled on Flonase. Continue current regimen. Coding Level of Care Code Est Pt Level 4 (10127) Diagnoses Asthma J45.909 Environmental allergies Z91.09
== END 2023-01-30 11:45 | disposition home or self-care (01) ==
PROVIDERS: PCP Family Medicine; Visit Provider Internal Medicine Pulmonary Disease
DX: J45.909 Unspecified asthma, uncomplicated (principal); Z91.09 Other allergy status, other than to drugs and biological substances
CPT/HCPCS: 99214

== ENCOUNTER 2023-02-13 13:21 | Outpatient (AMB) | payer OTHER, SELFPAY ==
--- NOTE | 2023-02-13 13:26 | MHC.OFFVIS ---
Intake Vital Signs 02/13/23 13:37 Height 5 ft 11 in Weight 232 lb 4 oz BMI 32.4 BP 144/72 H Blood Pressure Location Lt brachial Position Sitting Pulse 91 Intake Visit Reasons: 2 week follow up Intake Note: [place] presents in office a as est.patient for a 2 week f/u PT CC: pt reports having constipation pt denies any other GI Issues Branch Library Clerk Required: Yes Branch Library Clerk Language: Vincentian Accompanied by: Self / Same As Patient Allergies aspirin [ASPIRIN] Allergy (Severe, Verified 02/13/23 13:39) ANAPHYLAXIS, rash HPI 2 week follow up HPI Details Assessment & Plan (1) Chronic idiopathic constipation: ?Code(s): K59.04 - Chronic idiopathic constipation ?Plan: Vincentian #[id number], Rosalina He received the Linzess at 145 micro g but despite taking it every morning with a full glass of water he still not moving his bowels well.? We will now advance him to the maximum dose of 290 micro g and titrate this with [id number] depending on his response. Because this is taken awhile to stabilize I want to see him in 2 weeks so we can get him to optimal bowel motility sooner.? He continues on his omeprazole 20 mg twice a day with good control of his GERD. Return office visit in 2 weeks (2) GERD (gastroesophageal reflux disease): ?Code(s): K21.9 - Gastro-esophageal reflux disease without esophagitis (3) Tubular adenoma of colon: ?Comment: 2019 scope repeat 5 years ?Code(s): D12.6 - Benign neoplasm of colon, unspecified ? ? ? Medications: New linaclotide (Linze ss) 290 mcg? PO QAM 30 days 30 caps 6RF E K59.04 - Chronic i diopathic constipa tion ? Discontinued linaclotide (Linze ss) ?? Discontinue d Reason:? Doctor' s Order 72 mcg? PO QAM 30 caps 4RF ? ? linaclotide (Linze ss) ?? Discontinue d Reason:? Doctor' s Order 145 mcg? PO QAM 30 caps 6RF K59.04 - Chronic i diopathic constipa tion ? COLONOSCOPY Scheduled for 03/06 BIOPSY TODAY'S VISIT Vincentian #Zainab Avelar He is taking the Lnzess at 290mcg adn MOM and this is moving his bowels well. The bowels are softer that his past formed BM's but he feels well and is not straining. He was no aware of the scope appt, it is as above and he has a follow up with me 03/20. He is exercising more and joined a gym and actually walked here for his appt from the [facility]. Keep February appointment. [facility] Medical History Asthma GERD (gastroesophageal reflux disease) Surgical History Hx of colonoscopy Hx of hernia repair Hx of umbilical hernia repair Family History Father Prostate cancer Mother Alzheimer disease Sister Cancer Social History Alcohol intake: current Alcohol intake frequency: does not drink Patient Tobacco Use Status: Former Tobacco user Review of Systems Const Denies fatigue, Denies fever(s), Denies night sweats, Denies poor appetite and Denies weight loss Eyes Details: glasses Reports requires corrective lenses ENT Reports Normal hearing present, Denies dental pain, Denies dysphagia, Denies hearing loss, Denies mouth pain, Denies odynophagia, Denies throat swelling, Denies tongue swelling and Reports other (Dentition adequate) Card Reports no additional complaints Resp Reports no additional complaints GI Denies abdominal pain, Denies melena, Denies bloating, Denies hematochezia, Reports constipation, Denies GI cramping, Denies dysphagia, Denies excessive flatus, Denies early satiety, Denies heartburn, Denies diarrhea, Denies nausea, Denies odynophagia, Denies vomiting and Denies hematemesis Skin/Breast Denies pruritus, Denies lesions, Denies rash and Denies jaundice Neuro Reports Normal hearing present and Denies Abnormal speech present Endo Denies fatigue Aller/Immun Denies throat swelling and Denies tongue swelling Physical Exam Vital Signs: Last Vital Signs Pulse 91 02/13/23 13:37 BP 144/72 H 02/13/23 13:37 BMI result Body Mass Index 32.4 Const General: cooperative, no acute distress, well developed and well groomed Nutritional Appearance: well nourished and obese Orientation/consciousness: oriented to person, oriented to place and oriented to time Limitations: language barrier HEENT Head: Yes normocephalic and Yes atraumatic Eyes General: appearance normal, both eyes and all related structures Pupils: Equal, round and reactive pupils present Neck Neck: Yes normal visual inspection and Yes no lymphadenopathy Thyroid: Thyroid normal Resp Effort & Inspection: normal respiratory effort and able to speak in complete sentences Auscultation: clear to auscultation bilaterally Cardio Rate: regular rate Rhythm: regular rhythm Heart sounds: Normal, physiologic split S2 sound present Peripheral pulses: radial pulses present and posterior tibial pulses present GI Inspection: No distended, No Abdominal panniculus present and Yes obesity Palpation (GI): Soft to palpation, nontender, no guarding, not rigid and No hepatosplenomegaly present Percussion: Yes normal to percussion Auscultation: normal bowel sounds Rectal Exam - Male: Yes deferred Skin General skin exam: no rashes or lesions noted, turgor normal, skin not dry, no jaundice, No spider nevi and no striae Rashes: no rashes Nails: normal Neuro General: oriented to person, oriented to place and oriented to time Cranial nerves: Yes Equal, round and reactive pupils present and Yes Normal hearing present Speech: No Abnormal speech present Extrem General: Yes normal to inspection, No clubbing, No cyanosis and No edema Psych Appearance: grossly normal and well kempt Mental Status: mental status grossly normal Speech and movement: Normal speech and movement present Affect: normal affect Attitude: cooperative Thought process: Normal thought process present and not confabulating Thought content: Normal thought content present Insight: Limited insight present (Psych) Judgement: Limited judgement present (Psych) Assessment & Plan Assessment & Plan (1) Chronic idiopathic constipation: Code(s): K59.04 - Chronic idiopathic constipation Plan: COLONOSCOPY Scheduled for 03/06 BIOPSY TODAY'S VISIT Vincentian #Zainab Live He is taking the Lnzess at 290mcg adn MOM and this is moving his bowels well. The bowels are softer that his past formed BM's but he feels well and is not straining. He was no aware of the scope appt, it is as above and he has a follow up with me 03/20. He is exercising more and joined a gym and actually walked here for his appt from the [facility]. Keep February appointment. (2) GERD (gastroesophageal reflux disease): Code(s): K21.9 - Gastro-esophageal reflux disease without esophagitis (3) Tubular adenoma of colon: Comment: 2019 scope repeat 5 years Code(s): D12.6 - Benign neoplasm of colon, unspecified Coding Level of Care Code Est Pt Level 3 (79912) Diagnoses Chronic idiopathic constipation K59.04 GERD (gastroesophageal reflux disease) K21.9 Tubular adenoma of colon D12.6
[2023-02-13 13:37] VITALS: BP 144/72; PULSE 91; BMI 32.4
== END 2023-02-13 14:01 | disposition home or self-care (01) ==
PROVIDERS: PCP Family Medicine; Visit Provider Nurse Practitioner
DX: K59.04 Chronic idiopathic constipation (principal); K21.9 Gastro-esophageal reflux disease without esophagitis; D12.6 Benign neoplasm of colon, unspecified
CPT/HCPCS: 99213

== ENCOUNTER → 2023-02-13 13:21 | Outpatient (BNVA) | payer OTHER, SELFPAY | PROVIDERS: PCP Family Medicine; Visit Provider Nurse Practitioner | DX: K59.04 Chronic idiopathic constipation (principal); K21.9 Gastro-esophageal reflux disease without esophagitis; D12.6 Benign neoplasm of colon, unspecified | CPT/HCPCS: 99212 ==

== ENCOUNTER 2023-03-06 11:03 | Day surgery (SDC) | payer OTHER, SELFPAY ==
[2023-03-04 15:09] VITALS: BMI 32.4
--- NOTE | 2023-03-05 10:51 | HO.ANESPROP2 ---
Documented by User: Ester Jaimes NP 03/05/23 10:54 HPI - Anesthesia Eval Consult details Narrative: 68yo M for Colonoscopy Follows pulmo for asthma. Last seen 01/2023 - stable on current tx PMFSH Active Problems Active Problems: All Active Problems (Updated 03/04/23 @ 14:58 by Renetta Centeno, WONG) Chronic idiopathic constipation (Acute) GERD (gastroesophageal reflux disease) (Acute) Tubular adenoma of colon (Acute) Asthma (Acute) Dyspnea on exertion (Acute) Environmental allergies (Acute) Pre-op examination (Acute) Past Medical History Medical History Asthma GERD (gastroesophageal reflux disease) Family History Family History Father Prostate cancer Mother Alzheimer disease Sister Cancer Surgical History Surgical History Hx of colonoscopy Hx of hernia repair Hx of umbilical hernia repair Social History Social History Alcohol intake: current Alcohol intake frequency: does not drink Patient Tobacco Use Status: Former Tobacco user Are you DNR?: No Advance Directives: No Advance Directives Information Provided: Yes Meds Allergies Allergy/AdvReac Type Severity Reaction Status Date / Time aspirin [ASPIRIN] Allergy Severe ANAPHYLAXIS, Verified 02/13/23 13:39 rash Home Medications Medication Instructions Recorded Confirmed Last Taken Type acetaminophen 500 mg tablet 500 mg PO Q6H PRN Pain 02/08/22 03/04/23 Unknown History budesonide-formoterol HFA 160 2 inh inhalation BID 02/08/22 03/04/23 Unknown History mcg-4.5 mcg/actuation aerosol inhaler (Symbicort) fluticasone propionate 50 1 spray intranasal DAILY 02/08/22 03/04/23 Unknown History mcg/actuation nasal spray,suspension gabapentin 800 mg tablet 800 mg PO TID 02/08/22 03/04/23 Unknown History loratadine 10 mg tablet (Allergy 10 mg PO DAILY 02/08/22 03/04/23 Unknown History Relief (loratadine)) montelukast 10 mg tablet 10 mg PO DAILY 02/08/22 03/04/23 Unknown History quetiapine 300 mg tablet 300 mg PO BEDTIME 02/08/22 Unknown History temazepam 15 mg capsule 15 mg PO BEDTIME PRN 02/08/22 Unknown History terazosin 5 mg capsule 5 mg PO BEDTIME 02/08/22 03/04/23 Unknown History albuterol sulfate 90 mcg/actuation 2 inh inhalation Q4H PRN Wheezing 08/29/22 03/04/23 Unknown History aerosol inhaler lidocaine 5 % topical ointment topical QAM 08/29/22 Unknown History tramadol 50 mg tablet 100 mg PO Q8H PRN severe pain 08/29/22 03/04/23 Unknown History docusate sodium 100 mg capsule 100 mg PO DAILY 12/13/22 03/04/23 Unknown History (Stool Softener) ketotifen fumarate 0.025 % (0.035 1 drp ophthalmic (eye) BID 12/13/22 03/04/23 Unknown History %) eye drops olmesartan 20 mg tablet 20 mg PO QAM 12/13/22 03/04/23 Unknown History polyvinyl alcohol 1.4 % eye drops 1 drp ophthalmic (eye) TID-QID 12/13/22 03/04/23 Unknown History (Artificial Tears (polyvinyl alcohol)) sildenafil 100 mg tablet 100 mg PO DAILY PRN Erectile 12/13/22 03/04/23 Unknown History Dysfunction colchicine (gout) 0.6 mg tablet 0.6 mg PO DAILY 03/04/23 03/04/23 Unknown History Exam Exam Date and Time: March 05, 2023 1051 Height,Weight and Vital Signs: Height 5 ft 11 in Weight 105.233 kg Pertinent Lab Results Pertinent Lab Results: Laboratory Tests 01/28/23 01/28/23 11:22 11:22 WBC 4.0 L Hgb 13.8 L Hct 42.1 Plt Count 133 L Sodium 141 Potassium 4.4 Chloride 108 Carbon Dioxide 22 BUN 15 Creatinine 0.83 Narrative Narrative: EKG 01/2023 Vent. Rate : 079 BPM ? ? Atrial Rate : 079 BPM ?? P-R Int : 170 ms? QRS Dur : 096 ms ? ? QT Int : 408 ms ? ? ? P-R-T Axes : 033 -15 030 degrees ?? QTc Int : 467 ms ? Normal sinus rhythm Normal ECG No previous ECGs available Assessment and Plan Assessment Anesthesia Assessment: Chart Reviewed Documented by User: Courtney Govea MD 03/06/23 14:16 [facility] Active Problems Active Problems: All Active Problems (Updated 03/04/23 @ 13:30 by Courtney Govea MD) Chronic idiopathic constipation (Acute) GERD (gastroesophageal reflux disease) (Acute) Tubular adenoma of colon (Acute) Asthma (Acute)- only uses inhaler when needed Dyspnea on exertion (Acute) Environmental allergies (Acute) Pre-op examination (Acute) H/o ARSLAN in the past but not using CPAP anymore Gout Increased BMI Past Medical History Medical History Asthma GERD (gastroesophageal reflux disease) Family History Family History Father Prostate cancer Mother Alzheimer disease Sister Cancer Family history of problems with anesthesia: No Surgical History Surgical History Hx of colonoscopy Hx of hernia repair Hx of umbilical hernia repair History of Problems with Anesthesia: No Social History Social History Alcohol intake: current Alcohol intake frequency: does not drink Patient Tobacco Use Status: Former Tobacco user Are you DNR?: No Advance Directives: No Advance Directives Information Provided: Yes Meds Allergies Allergy/AdvReac Type Severity Reaction Status Date / Time aspirin [ASPIRIN] Allergy Severe ANAPHYLAXIS, Verified 02/13/23 13:39 rash Home Medications Medication Instructions Recorded Confirmed Last Taken Type acetaminophen 500 mg tablet 500 mg PO Q6H PRN Pain 02/08/22 03/04/23 Unknown History budesonide-formoterol HFA 160 2 inh inhalation BID 02/08/22 03/04/23 Unknown History mcg-4.5 mcg/actuation aerosol inhaler (Symbicort) fluticasone propionate 50 1 spray intranasal DAILY 02/08/22 03/04/23 Unknown History mcg/actuation nasal spray,suspension gabapentin 800 mg tablet 800 mg PO TID 02/08/22 03/04/23 Unknown History loratadine 10 mg tablet (Allergy 10 mg PO DAILY 02/08/22 03/04/23 Unknown History Relief (loratadine)) montelukast 10 mg tablet 10 mg PO DAILY 02/08/22 03/04/23 Unknown History quetiapine 300 mg tablet 300 mg PO BEDTIME 02/08/22 Unknown History temazepam 15 mg capsule 15 mg PO BEDTIME PRN 02/08/22 Unknown History terazosin 5 mg capsule 5 mg PO BEDTIME 02/08/22 03/04/23 Unknown History albuterol sulfate 90 mcg/actuation 2 inh inhalation Q4H PRN Wheezing 08/29/22 03/04/23 Unknown History aerosol inhaler lidocaine 5 % topical ointment topical QAM 08/29/22 Unknown History tramadol 50 mg tablet 100 mg PO Q8H PRN severe pain 08/29/22 03/04/23 Unknown History docusate sodium 100 mg capsule 100 mg PO DAILY 12/13/22 03/04/23 Unknown History (Stool Softener) ketotifen fumarate 0.025 % (0.035 1 drp ophthalmic (eye) BID 12/13/22 03/04/23 Unknown History %) eye drops olmesartan 20 mg tablet 20 mg PO QAM 12/13/22 03/04/23 Unknown History polyvinyl alcohol 1.4 % eye drops 1 drp ophthalmic (eye) TID-QID 12/13/22 03/04/23 Unknown History (Artificial Tears (polyvinyl alcohol)) sildenafil 100 mg tablet 100 mg PO DAILY PRN Erectile 12/13/22 03/04/23 Unknown History Dysfunction colchicine (gout) 0.6 mg tablet 0.6 mg PO DAILY 03/04/23 03/04/23 Unknown History Exam Airway Mallampati Class: II TM Dist: >3cm Neck ROM: Full Loose/Missing/Broken Teeth: Yes (Extractions) Heart: RRR Lungs: CTAB Assessment and Plan Assessment Anesthesia Assessment: Anesthesia Plan Discussed Final Anesthetic Review Family History of Problems with Anesthesia: No History of Problems with Anesthesia: No NPO: Yes ASA Class: III Final Preanesthetic Review: No Changes in Pt Med Stat, Meds/Allgs Chart Reviewed, Consent Obtained/Reviewed and Anes Risks/Benef Reviewed Patient Risk: Intermediate Procedure Risk: Low Assessment/Block/Sedation in SS: Assess/Block/Sedation-SS Anesthetic Plan Anesthetic Plan: MAC: Disposition: Standard PACU
[2023-03-06] MEDS: Lactated Ringers 1,000 ML 100 ML IVCONT (13:06)
--- NOTE | 2023-03-06 13:49 | P.HPSUR_ITS ---
Pre-Procedural Eval Section A Date of Service: 03/06/23 Section B Chief Complaint: screening Relevant Family History (Specify if Yes): No Relevant Social History: None Present Medications: see Short Stay Collaborative assessment Medical History: Significant History (Asthma GERD (gastroesophageal reflux disease)) History of Previous Operations: Relevant previous surgery/procedure and date(s) (Hx of colonoscopy Hx of hernia repair Hx of umbilical hernia repair) Allergies: Allergies Allergy/AdvReac Type Severity Reaction Status Date / Time aspirin [ASPIRIN] Allergy Severe ANAPHYLAXIS, Verified 02/13/23 13:39 rash Review of Systems Sugical H&P ROS: Negative: Constitution, Cardiovascular, Respiratory, Neurological, Psychiatric, Hem-Onc, Allergic/Immunologic, Gastrointestinal, Genitourinary, Musculoskeletal, Integumentary, Endocrine and Eyes/Ears/No se/Throat Exam Surgical H&P Exam: Normal: HEENT, Normal: Heart, Normal: Lungs, Normal: Extremities, Normal: Abdomen, Normal: Skin and Normal: Neurological Plan Diagnosis/Plan: Unchanged I have reviewed the history and physical and performed a pertinent physical examination on my patient. No changes have occurred unless specified. Time Spent With Patient Time: Total time managing care of this patient today ____ minutes.
--- NOTE | 2023-03-06 13:51 | W.PM.OPN ---
Operative Note Operative Note Date of Service: 03/06/23 Narrative: Operative Information Procedure Description: Colonoscopy Indication: screening Anesthesia: MAC COLONOSCOPY Instrument: Olympus variable stiffness ADULT scope 190L Colonoscopy Monitoring: Vital signs and clinical assessment, continuous EKG monitoring, Pulse oximetry, Carbon Dioxide monitoring and blood pressure monitoring were done throughout the procedure. Colon withdrawal time was 8 minutes. Procedure: The patient was placed in the left lateral decubitis position and pre-procedure medications were administered. After a digital rectal examination of the ano-rectum, the video colonoscope was inserted into the rectum and advanced through the colon to the cecum/TI. The colonoscope was slowly withdrawn in a retrograde panoramic fashion and the colon mucosa was carefully examined including a retroflexed view of the rectum. Findings and interventions are described below. Procedure Difficulty: easy Findings: Terminal Ileum-normal Cecum:normal Ascending Colon: normal Transverse Colon -normal Descending Colon:normal Sigmoid Colon: mild diverticulosis Rectum: Retroflexion with small internal hemorrhoids, grade I Anorectum - normal Colon preparation: [place] Bowel Preparation Scale Right colon; 2 Transverse colon: 3 Left colon; 1-2 (0 = Unprepared colon segment with mucosa not seen due to solid stool that cannot be cleared. 1 = Portion of mucosa of the colon segment seen, but other areas of the colon segment not well seen due to staining, residual stool and/or opaque liquid. 2 = Minor amount of residual staining, small fragments of stool and/or opaque liquid, but mucosa of colon segment seen well. 3 = Entire mucosa of colon segment seen well with no residual staining, small fragments of stool or opaque liquid) Impression and Post Procedure Diagnosis: internal hemorrhoids diverticular disease Plan: High fiber diet leaflet Avoid straining at stool, epsom salts and sitz bath, anusol supps or cream Repeat Colonoscopy in 5 years due to fair prep on left side or earlier if clinically indicated Above findings were reviewed with the patient and relevant handouts were provided if indicated.
[2023-03-06 14:30] VITALS: BP 94/60; PULSE 72; RESP 16; TEMP 36.4; O2SAT 98
[2023-03-06 14:45] VITALS: BP 136/98; PULSE 82; RESP 16; O2SAT 98
[2023-03-06 14:57] VITALS: BP 145/87; PULSE 76; RESP 16; TEMP 36.3; O2SAT 97
== END 2023-03-06 15:53 | disposition home or self-care (01) ==
PROVIDERS: PCP Internal Medicine; Visit Provider Internal Medicine Gastroenterology
PROC: 0DJD8ZZ Inspection of Lower Intestinal Tract, Via Natural or Artificial Opening Endoscopic (ICD-10-PCS; CPT 45378; principal; 2023-03-06 13:50)
DX: Z12.11 Encounter for screening for malignant neoplasm of colon (principal); Z86.010 Personal history of colon polyps; K57.30 Diverticulosis of large intestine without perforation or abscess without bleeding; K64.0 First degree hemorrhoids; K59.04 Chronic idiopathic constipation; K21.9 Gastro-esophageal reflux disease without esophagitis; J45.909 Unspecified asthma, uncomplicated; Z79.51 Long term (current) use of inhaled steroids; Z79.899 Other long term (current) drug therapy; Z88.8 Allergy status to other drugs, medicaments and biological substances; Z87.891 Personal history of nicotine dependence
CPT/HCPCS: G0105

== ENCOUNTER → 2023-03-06 11:03 | Outpatient (BNV) | payer OTHER, SELFPAY | PROVIDERS: PCP Internal Medicine; Visit Provider Internal Medicine Gastroenterology | DX: Z12.11 Encounter for screening for malignant neoplasm of colon (principal); K64.0 First degree hemorrhoids; K57.30 Diverticulosis of large intestine without perforation or abscess without bleeding | CPT/HCPCS: 45378 ==

== ENCOUNTER 2023-03-18 14:15 | Outpatient (AMB) | payer OTHER, SELFPAY ==
--- NOTE | 2023-03-18 14:21 | A.OFFVIS_ITS ---
Intake Intake Visit Reasons: Elevated PSA Intake Note: New Patient presents for initial visit Elevated PSA (PSA 5.33) Urology Medications: none Blood Thinner: none Sander Machine Required: Yes Sander Machine Name: ROMEO Accompanied by: Self / Same As Patient Allergies aspirin [ASPIRIN] Allergy (Severe, Verified 03/18/23 14:39) ANAPHYLAXIS, rash Medication List - Last Reconciled 03/18/23 by ALIS SamuelsP- acetaminophen 500 mg PO Q6H PRN albuterol sulfate 90 mcg/actuation 2 inhalations inhalation Q4H PRN budesonide-formoterol 160-4.5 mcg/actuation (Symbicort) 2 inhalations inhalation BID colchicine (gout) 0.6 mg PO DAILY docusate sodium (Stool Softener) 100 mg PO DAILY fluticasone propionate 50 mcg/actuation 1 spray intranasal DAILY gabapentin 800 mg PO TID ketotifen fumarate 0.025%(0.035%) 1 drp ophthalmic (eye) BID lidocaine 5% topical QAM linaclotide (Linzess) 290 mcg PO QAM 30 days loratadine (Allergy Relief (loratadine)) 10 mg PO DAILY montelukast 10 mg PO DAILY olmesartan 20 mg PO QAM omeprazole 20 mg PO BID peg 3350-electrolytes 236-22.74-6.74 -5.86 gram (Golytely) 240 mL PO Q10M 1 day polyvinyl alcohol 1.4% (Artificial Tears (polyvinyl alcohol)) 1 drp ophthalmic (eye) TID-QID quetiapine 300 mg PO BEDTIME rosuvastatin 10 mg PO QAM sildenafil 100 mg PO DAILY PRN temazepam 15 mg PO BEDTIME PRN terazosin 5 mg PO BEDTIME tramadol 100 mg PO Q8H PRN valsartan 80 mg PO QAM HPI HPI Comments History of Present Illness Details Czech is a very pleasant 68 year old Burkinan speaking patient of Dr. Mckeon. He has a past medical history of asthma, constipation and GERD. He presents to the office today as a new patient for an elevated PSA. When asked patient reports to be doing and feeling well. He reports following up with PCP at which time he was noted to have an elevated PSA and referral was made to Urology. In review of patient's chart it appears PSA 12/11--5.33. When asked patient does report intermittent issues with dysuria. He also reports noting difficulty in initiation of urinary stream. He otherwise denies urinary urgency, urinary frequency, incontinence, nocturia, hematuria, dysuria, foul smelling urine, changes to urinary stream, flank pain, fever, and or chills. Discussed at length potential causes for elevated PSA. LINDA noted boggy prostate. Discussed potential elevated PSA related to prostatitis. Discussed antibiotic therapy for 2 weeks and further assess PSA 6 weeks after completion of antibiotic therapy. Discussed obtaining retroperitoneal ultrasound for further assessment evaluation. In office urinalysis results reviewed with the patient today. He otherwise offers no other issues or concerns at this time. [facility] Medical History Asthma GERD (gastroesophageal reflux disease) Surgical History Hx of colonoscopy Hx of hernia repair Hx of umbilical hernia repair Family History Father Prostate cancer Mother Alzheimer disease Sister Cancer Social History Alcohol intake: current Alcohol intake frequency: does not drink Patient Tobacco Use Status: Former Tobacco user Review of Systems Const Reports as per HPI Eyes Reports no additional complaints ENT Reports no additional complaints Card Reports no additional complaints Resp Reports as per HPI GI Reports as per HPI Reports as per HPI Musc Reports no additional complaints Neuro Reports no additional complaints Psych Reports no additional complaints Endo Reports no additional complaints William/Lymph Reports no additional complaints Aller/Immun Reports no additional complaints Physical Exam Const General: cooperative, healthy appearing, comfortable, no acute distress, well developed, alert and awake Orientation/consciousness: patient oriented x3 Limitations: no limitations HEENT Head: Yes normal to inspection, Yes normocephalic and Yes atraumatic Ears: hearing grossly normal bilaterally Eyes General: appearance normal, both eyes and all related structures Neck Neck: Yes normal visual inspection and Yes trachea midline Chest Chest palpation & inspection: normal inspection of the chest Resp Effort & Inspection: normal respiratory effort and able to speak in complete sentences Cardio Rate: regular rate GI Inspection: Yes normal to inspection Rectal Exam - Male: Yes visual inspection normal, Yes normal sphincter tone and Yes prostate abnormal (boggy; no suspicious nodules palpated.) General: Yes no CVA tenderness Back/Spine/Pelvis Back: no CVA tenderness Skin General skin exam: no rashes or lesions noted Neuro General: patient oriented x3 Extrem General: Yes normal to inspection Psych Appearance: grossly normal and well kempt Mental Status: mental status grossly normal Speech and movement: Normal speech and movement present and Clear speech present Affect: normal affect Attitude: cooperative Thought process: Normal thought process present Thought content: Normal thought content present Insight: Good insight present (Psych) Judgement: Good judgement present (Psych) Results AMB Urinalysis, Automated UA Leukoctes 0 Aundrea/uL Last Edit by Bamatea on 03/18/23 14:39 UA Nitrite Last Edit by Bamatea on 03/18/23 14:39 UA Urobilinogen 0.2 mg/dL Last Edit by Bamatea on 03/18/23 14:39 UA Protein 0 mg/dL Last Edit by Bamatea on 03/18/23 14:39 UA pH 6.0 Last Edit by Bamatea on 03/18/23 14:39 UA Blood 0 Richie/uL Last Edit by Bamatea on 03/18/23 14:39 UA Specific [place] 1.010 Last Edit by Bamatea on 03/18/23 14:39 UA Ketone Last Edit by Bamatea on 03/18/23 14:39 UA Bilirubin 0 mg/dL Last Edit by Bamatea on 03/18/23 14:39 UA Glucose 0 mg/dL Last Edit by Bamatea on 03/18/23 14:39 Results Reviewed Results Reviewed: Laboratory Last Values Urine pH (Auto) 6.0 03/18/23 14:22 Specific [place] (Auto) 1.010 03/18/23 14:22 Urine Protein (Auto) 0 mg/dL 03/18/23 14:22 Glucose (UA)(Auto) 0 mg/dL 03/18/23 14:22 Urine Blood (Auto) 0 Richie/uL 03/18/23 14:22 Urine Bilirubin (Auto) 0 mg/dL 03/18/23 14:22 Urine Urobilinogen (Auto) 0.2 mg/dL 03/18/23 14:22 Leukocyte Esterase (Auto) 0 Aundrea/uL 03/18/23 14:22 Assessment & Plan Assessment & Plan (1) Elevated PSA: Code(s): R97.20 - Elevated prostate specific antigen [PSA] (2) Dysuria: Code(s): R30.0 - Dysuria (3) History of urinary hesitancy: Code(s): Z87.898 - Personal history of other specified conditions Plan In office urinalysis results reviewed with the patient today; as noted above. Discussed at length potential causes for elevated PSA. Discussed elevation in PSA potentially related to question of prostatitis with boggy prostate noted on LINDA today. Start Bactrim as discussed and prescribed. Will obtain retroperitoneal ultrasound for further assessment evaluation. Discussed, educated, encouraged to continue drinking plenty of water daily. Discussed redraw of PSA 6 weeks status post antibiotic therapy for further assessment evaluation. Discussed no sex the night before, no heavy lifting, and no caffeine morning of lab draw. Follow-up in 8 weeks with imaging and labs to be completed prior; or sooner with any issues, concerns, and or questions. Orders: Orders PSA,Total (Free>4and<10) Today R97.20 - Elevated prostate specific antigen [PSA] US retroperitoneal comp Today R39.9 - Unspecified symptoms and signs involving the genitourinary system AMB Urinalysis Automated Today Z13.9 - Encounter for screening, unspecified Medications: New sulfamethoxazole-trimethoprim 800-160 mg (Bactrim DS) 1 tab PO BID 14 days 28 tabs 0RF N39.0 - Urinary tract infection, site not specified Patient Instructions: The patient had an opportunity to ask questions regarding the treatment plan. All questions were answered. Physical exam, labs, and imaging were discussed and reviewed in detail. As well as risks, benefits, and discussion of treatment choices. No major barriers to understanding were identified. The patient expressed understanding and agreement with the above treatment plan. The patient was made aware they should contact our office by phone for worsening of their current condition, the appearance of new symptoms, or with any quest ions or concerns. Compliance is encouraged with any medications and follow up testing that is ordered. It is a privilege to be allowed the opportunity to participate in? your urological care.? Again, if you have any questions or concerns If you have any questions or concerns please do not hesitate to contact me. The office is [phone]. This note is constructed using voice recognition software. While every effort has been made to ensure accuracy paper cup handle machine operator errors may have been included. Yours sincerely, Kaya Welsh, [employer] Coding Level of Care Code New Pt Level 4 (43545) Diagnoses Elevated PSA R97.20 Dysuria R30.0 History of urinary hesitancy Z87.898
== END 2023-03-18 14:54 | disposition home or self-care (01) ==
PROVIDERS: PCP Family Medicine; Visit Provider Nurse Practitioner Family
DX: R97.20 Elevated prostate specific antigen [PSA] (principal); R30.0 Dysuria; Z87.898 Personal history of other specified conditions
CPT/HCPCS: 99204

== ENCOUNTER → 2023-03-18 14:15 | Outpatient (BNVA) | payer OTHER, SELFPAY | PROVIDERS: PCP Family Medicine; Visit Provider Nurse Practitioner Family | DX: R97.20 Elevated prostate specific antigen [PSA] (principal); R30.0 Dysuria; Z87.898 Personal history of other specified conditions | CPT/HCPCS: 81003; 99202 ==

== ENCOUNTER 2023-04-22 12:22 | Outpatient (REF) | payer OTHER, SELFPAY ==
--- NOTE | ~2023-04-22 | US_ITS ---
EXAMINATION: US RETROPERITONEAL COMPLETE (RENAL) CLINICAL INFORMATION: Dysuria, elevated PSA, urinary hesitancy. COMPARISON: CT abdomen and pelvis with contrast 09/09/2018. TECHNIQUE: Real-time imaging of the kidneys and bladder. FINDINGS: RIGHT KIDNEY: 12.6 x 6.1 x 6.1 cm (SAG x AP x TRV). The kidney is normal in size, contour, and echogenicity. Renal cortical thickness is normal. No calculi or focal parenchymal lesions. No hydronephrosis. LEFT KIDNEY: 11.5 x 5.7 x 5.1 cm (SAG x AP x TRV). The kidney is normal in size, contour, and echogenicity. Renal cortical thickness is normal. No renal calculi or hydronephrosis. 8 mm simple cyst in the mid kidney. No follow-up imaging is recommended. BLADDER: Well distended and normal. Bilateral ureteral jets are demonstrated. Prevoid bladder volume is 344 mL. Postvoid bladder volume is 85.2 mL. The prostate volume is 29.6 mL. US/US retroperitoneal comp IMPRESSION: Mildly enlarged prostate measuring 30 mL. Post void bladder residual volume 85 mL.
== END 2023-04-22 12:23 | disposition home or self-care (01) ==
LOC: HO.US 12:22
PROVIDERS: PCP Internal Medicine; Visit Provider Nurse Practitioner Family
DX: R39.9 Unspecified symptoms and signs involving the genitourinary system (principal)
CPT/HCPCS: 76770

== ENCOUNTER 2023-06-04 08:43 | Outpatient (AMB) | payer OTHER, SELFPAY ==
--- NOTE | 2023-06-04 09:45 | MHC.OFFVIS ---
Intake Vital Signs 06/04/23 09:46 Height 5 ft 11 in Weight 233 lb 11.04 oz BMI 32.6 BP 138/87 Blood Pressure Location Rt brachial Position Sitting Pulse 98 Pulse Source Doppler Pulse Oximetry (%) 94 Oxygen Delivery Method Room Air Intake Visit Reasons: asthma Service Establishment Attendant Required: Yes Service Establishment Attendant Name: Rosalina Nye Val Allergies aspirin [ASPIRIN] Allergy (Severe, Verified 06/04/23 09:47) ANAPHYLAXIS, rash HPI asthma HPI Details 68-year-old gentleman, nonsmoker, followed for underlying severe persistent asthma and environmental allergies. Patient was tried on Xolair, however he did not believe it brought any symptomatic benefit. Now he continues to use Symbicort, Flonase, and albuterol MDI with good control of his underlying symptoms. He denies any recent exacerbations. [facility] Medical History Asthma GERD (gastroesophageal reflux disease) Surgical History Hx of colonoscopy Hx of hernia repair Hx of umbilical hernia repair Family History Father Prostate cancer Mother Alzheimer disease Sister Cancer Social History Alcohol intake: current Alcohol intake frequency: does not drink Patient Tobacco Use Status: Former Tobacco user Review of Systems Const Denies daytime sleepiness, Denies excessive sweating, Denies fatigue, Denies fever(s), Denies lethargy, Denies malaise, Denies night sweats, Denies snoring and Denies weight loss Eyes Denies blurry vision and Denies itchy eyes ENT Denies nasal congestion, Denies post nasal drip, Denies sinus pain, Denies sinus pressure and Denies other ( Thrush) Card Denies chest pain, Denies pedal edema, Denies dyspnea, Denies orthopnea and Denies paroxysmal nocturnal dyspnea Resp Denies cough, Denies hemoptysis, Denies excessive phlegm production, Denies dyspnea, Denies snoring and Denies wheezing GI Denies abdominal pain and Denies heartburn Musc Denies myalgias, Denies arthralgias and Denies joint swelling Skin/Breast Denies rash Neuro Denies memory loss and Denies seizure-like activity Psych Denies abnormal sleep pattern, Denies anxiety and Denies memory loss Endo Denies excessive sweating, Denies fatigue and Denies heat intolerance William/Lymph Denies easy bruising Aller/Immun Denies itchy eyes, Denies seasonal rhinorrhea and Denies wheezing Physical Exam Vital Signs: Last Vital Signs Pulse 98 06/04/23 09:46 BP 138/87 06/04/23 09:46 Pulse Ox 94 06/04/23 09:46 Oxygen Delivery Method Room Air 06/04/23 09:46 BMI result Body Mass Index 32.6 Const General: no acute distress and alert Nutritional Appearance: not obese Orientation/consciousness: Other orientation findings ( oriented) HEENT Head: Yes atraumatic Eyes General: appearance normal, both eyes and all related structures Sclerae: sclerae normal EOM: EOMs intact bilaterally Neck Neck: Yes supple Lymphatic: no lymphadenopathy noted Resp Effort & Inspection: normal respiratory effort and no use of accessory muscles Auscultation: clear to auscultation bilaterally Cardio Rate: regular rate Rhythm: regular rhythm Heart sounds: no gallops, no murmurs and no rubs Skin General skin exam: other ( warm) Extrem General: No clubbing, No cyanosis and No edema Assessment & Plan Assessment & Plan (1) Asthma: Code(s): J45.909 - Unspecified asthma, uncomplicated Plan: well controlled current regimen of Symbicort and albuterol MDI. Continue current regimen. (2) Environmental allergies: Code(s): Z91.09 - Other allergy status, other than to drugs and biological substances Plan: Well controlled on as needed Flonase. Continue current regimen. Coding Level of Care Code Est Pt Level 4 (81134) Diagnoses Asthma J45.909 Environmental allergies Z91.09
[2023-06-04 09:46] VITALS: BP 138/87; PULSE 98; O2SAT 94; BMI 32.6
== END 2023-06-04 09:57 | disposition home or self-care (01) ==
PROVIDERS: PCP Family Medicine; Visit Provider Internal Medicine Pulmonary Disease
DX: J45.909 Unspecified asthma, uncomplicated (principal); Z91.09 Other allergy status, other than to drugs and biological substances
CPT/HCPCS: 99214

== ENCOUNTER → 2023-06-04 08:43 | Outpatient (BNVA) | payer OTHER, SELFPAY | PROVIDERS: PCP Family Medicine; Visit Provider Internal Medicine Pulmonary Disease | DX: J45.909 Unspecified asthma, uncomplicated (principal); Z91.09 Other allergy status, other than to drugs and biological substances | CPT/HCPCS: 99212 ==

== ENCOUNTER 2023-06-07 14:19 | Outpatient (REF) | payer OTHER, SELFPAY ==
[2023-06-07 16:04] LABS: MANUAL DIFF FLAG NO
[2023-06-07 16:21] LABS: Basophils Absolute Auto 0.1 X10*3/uL (0.0-0.2); Basophils Percent Auto 1.2 % (0-2); Eosinophils Absolute Auto 0.1 X10*3/uL (0.0-0.4); Eosinophils Percent Auto 1.2 % (0-4); Hematocrit 42.8 % (42.0-52.0); Hemoglobin 14.3 g/dl (14.0-18.0); Imm Gran Abs Auto 0.01 X10*3/uL (0.00-0.03); Imm Gran Pct Auto 0.2 % (0.0-0.4); Lymphocytes Absolute Auto 1.7 X10*3/uL (1.2-4.9); Lymphocytes Percent Auto 35.4 % (20-40); Mean Corpuscular HGB Conc 33.4 g/dl (31.0-36.0); Mean Corpuscular Hemoglobin 30.4 pg (27.0-33.0); Mean Corpuscular Volume 90.9 fL (80.0-98.0); Mean Platelet Volume 9.3 fL (9.4-12.4); Monocytes Absolute Auto 0.4 X10*3/uL (0.1-1.2); Monocytes Percent Auto 7.6 % (2-11); Neutrophils Absolute Auto 2.7 x10*3/uL (2.0-8.3); Neutrophils Percent Auto 54.4 % (45-73); Platelet Count 153 X10*3/uL (160-400); Red Blood Count 4.71 X10*6/uL (4.60-5.80); Red Cell Distribution Width 12.3 % (11.0-16.0); White Blood Count 4.9 X10*3/uL (4.8-10.8)
[2023-06-07 16:34] LABS: C Reactive Protein 0.17 mg/dL (< or = 0.50); Uric Acid 4.3 mg/dL (3.4-7.0)
[2023-06-07 17:01] LABS: Erythrocyte Sedimentation Rate 6 MM/HR (0-15)
== END 2023-06-07 14:20 | disposition home or self-care (01) ==
LOC: HO.HHCL 14:19
PROVIDERS: Visit Provider Registered Nurse
DX: M1A.09X0 Idiopathic chronic gout, multiple sites, without tophus (tophi) (principal)
CPT/HCPCS: 36415; 84550; 85025; 85652; 86140

== ENCOUNTER 2023-07-27 12:06 | Emergency (ER) | payer OTHER, SELFPAY ==
[2023-07-27 13:07] VITALS: BP 184/89; PULSE 104; RESP 18; TEMP 36.8; O2SAT 96; BMI 32.2
--- NOTE | 2023-07-27 13:13 | ED.EYEPROB ---
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 Patient states that yesterday, he was walking when debris from the floor above him fell into his eyes. Patient states that he rubbed them both and they both hurt but his left significantly more than his right. Patient denies any dizziness, lightheadedness, abdominal pain, nausea, vomiting, fever, chills, blurry vision, double vision, loss of vision, chest pain, difficulty breathing, shortness of breath, back pain, night sweats, pain with urination, increased urinary frequency, increased urinary urgency, blood in his urine or stool, syncope or a near syncopal episode, bowel incontinence, bladder incontinence, bowel retention, bladder retention, or any other complaints at this time. MD chief complaint: eye pain Onset (ago): day(s) (1) Onset description: sudden Duration: constant Location: both eyes Eye Symptoms: redness, pain and foreign body sensation Severity: mild Severity scale (1-10): 3 Associated symptoms: none Treatments Prior to Arrival: none Related Data Home Medications Medication Instructions Recorded Confirmed acetaminophen 500 mg tablet 500 mg PO Q6H PRN Pain 02/08/22 03/04/23 budesonide-formoterol HFA 160 2 inh inhalation BID 02/08/22 03/04/23 mcg-4.5 mcg/actuation aerosol inhaler (Symbicort) fluticasone propionate 50 1 spray intranasal DAILY 02/08/22 03/04/23 mcg/actuation nasal spray,suspension gabapentin 800 mg tablet 800 mg PO TID 02/08/22 03/04/23 loratadine 10 mg tablet (Allergy 10 mg PO DAILY 02/08/22 03/04/23 Relief (loratadine)) montelukast 10 mg tablet 10 mg PO DAILY 02/08/22 03/04/23 quetiapine 300 mg tablet 300 mg PO BEDTIME 02/08/22 temazepam 15 mg capsule 15 mg PO BEDTIME PRN 02/08/22 terazosin 5 mg capsule 5 mg PO BEDTIME 02/08/22 03/04/23 albuterol sulfate 90 mcg/actuation 2 inh inhalation Q4H PRN Wheezing 08/29/22 03/04/23 aerosol inhaler lidocaine 5 % topical ointment topical QAM 08/29/22 tramadol 50 mg tablet 100 mg PO Q8H PRN severe pain 08/29/22 03/04/23 docusate sodium 100 mg capsule 100 mg PO DAILY 12/13/22 03/04/23 (Stool Softener) ketotifen fumarate 0.025 % (0.035 1 drp ophthalmic (eye) BID 12/13/22 03/04/23 %) eye drops olmesartan 20 mg tablet 20 mg PO QAM 12/13/22 03/04/23 polyvinyl alcohol 1.4 % eye drops 1 drp ophthalmic (eye) TID-QID 12/13/22 03/04/23 (Artificial Tears (polyvinyl alcohol)) sildenafil 100 mg tablet 100 mg PO DAILY PRN Erectile 12/13/22 03/04/23 Dysfunction colchicine 0.6 mg tablet 0.6 mg PO DAILY 03/04/23 03/04/23 rosuvastatin 10 mg tablet 10 mg PO QAM 03/18/23 valsartan 80 mg tablet 80 mg PO QAM 03/18/23 Previous Rx's Medication Instructions Recorded peg 3350-electrolytes 236 240 ml PO Q10M 1 day #4,000 mL 08/29/22 gram-22.74 gram-6.74 gram-5.86 gram solution (Golytely) linaclotide 290 mcg capsule 290 mcg PO QAM 30 days #30 caps 01/30/23 (Linzess) omeprazole 20 mg capsule,delayed 20 mg PO BID #60 caps 03/12/23 release sulfamethoxazole 800 1 tab PO BID 14 days #28 tabs 03/18/23 mg-trimethoprim 160 mg tablet (Bactrim DS) erythromycin 5 mg/gram (0.5 %) eye 0.5 inch ophthalmic (eye) Q4H #3.5 07/27/23 ointment grams Allergies Allergy/AdvReac Type Severity Reaction Status Date / Time aspirin [ASPIRIN] Allergy Severe ANAPHYLAXIS, Verified 07/27/23 13:06 rash Review of Systems Constitutional: Constitutional: Reports no additional constitutional complaints, Denies chills, Denies fever(s) and Denies night sweats Eyes: Eyes: Reports no additional eye complaints, Denies blurry vision, Denies change in vision, Denies diplopia, Denies eye discharge, Reports irritation, Denies loss of vision and Reports eye pain ENT: Denies dizziness Cardiovascular: Cardiovascular: Reports no additional cardiovascular complaints, Denies chest pain, Denies lightheadedness, Denies Loss of Consciousness and Denies dyspnea Respiratory: Respiratory: Reports no additional respiratory complaints and Denies dyspnea Gastrointestinal: Gastrointestinal: Reports no additional gastrointestinal complaints, Denies abdominal pain, Denies melena, Denies hematochezia, Denies change in bowel habits and Denies change in stool character Genitourinary: Genitourinary: Reports no additional male genitourinary complaints, Denies hematuria, Denies oliguria, Denies difficulty urinating, Denies dysuria, Denies urinary frequency, Denies urinary hesitancy, Denies urinary incontinence and Denies urinary urgency Musculoskeletal: Musculoskeletal: Reports no additional musculoskeletal complaints, Denies numbness and Denies tingling Neurologic: Denies dizziness, Denies loss of vision, Denies numbness and Denies tingling Psychiatric: Psychiatric: Reports no additional psychiatric complaints Endocrine: Endocrine: Reports no additional endocrine complaints Hematologic/Lymphatic: Hematologic/Lymphatic: Reports no additional hematologic/lymphatic complaints Allergic/Immunologic: Allergic/Immunologic: Reports no additional allergic/immunologic complaints PMF Past Medical History Attestation statement: The following information was validated with the patient. Source: old records reviewed and nursing notes reviewed Onset Date is defined in the Problem List Problems that require an onset date and time if occurred within 24 hrs of arrival to the ED Aortic Dissection and Rupture; Neurologic impairment; Cardiopulmonary Arrest; Endotracheal Intubation; Insertion or Replacement of Mechanical Circulatory Assist Device Medical History History of urinary hesitancy Dysuria Elevated PSA Pre-op examination Environmental allergies Dyspnea on exertion GERD (gastroesophageal reflux disease) Asthma Surgical History Hx of umbilical hernia repair Hx of hernia repair Hx of colonoscopy Family History Family History Father Prostate cancer Mother Alzheimer disease Sister Cancer Social History Social History Alcohol intake: current Alcohol intake frequency: does not drink Patient Tobacco Use Status: Former Tobacco user Advance Directives: No Advance Directives Information Provided: No Physical Exam Vital Signs: Vital Signs: Last Vital Signs Temp 98.3 F 07/27/23 13:07 Pulse 104 H 07/27/23 13:07 Resp 18 07/27/23 13:07 BP 184/89 H 07/27/23 13:07 Pulse Ox 96 07/27/23 13:07 O2 Del Method Room Air 07/27/23 13:07 BMI result Body Mass Index 32.2 Const: General: cooperative, no acute distress, alert and awake Nutritional Appearance: well nourished Orientation/consciousness: patient oriented x3 Limitations: no limitations HEENT: Head: Yes normal to inspection and Yes atraumatic Ears: hearing grossly normal bilaterally and external ears normal General nose exam: Normal external nose present, no nasal discharge noted and no epistaxis Face and sinus: Yes normal facial exam, No abrasion and No laceration Mouth: Normal oral and palatal mucosa present, no drooling and no muffled voice Eyes: Other: eye lash embedded in left cornea Periorbital: periorbital findings normal Eyelids: Yes eyelids normal Corneas: corneas abnormal bilateral abrasion Pupils: Equal, round and reactive pupils present EOM: EOMs intact bilaterally Neck: Neck: Yes normal visual inspection, Yes full ROM and Yes no lymphadenopathy Chest: Chest palpation & inspection: normal inspection of the chest Resp: Effort & Inspection: normal respiratory effort and able to speak in complete sentences GI: Inspection: Yes normal to inspection Neuro: General: patient oriented x3 and moves all extremities Cranial nerves: Yes Equal, round and reactive pupils present Cognition (Neuro): normal cognition Motor exam (neuro): 5/5 motor strength present throughout Sensory Exam: Normal double simultaneous stimulation for sensation Coordination: [id number] test normal Extrem: General: Yes normal to inspection, Yes full ROM and Yes capillary refill normal Psych: Appearance: grossly normal Mental Status: mental status grossly normal Affect: normal affect Attitude: cooperative Thought process: Normal thought process present Thought content: Normal thought content present Insight: Good insight present (Psych) Course Course Course Narrative: This is a rapid medical exam. Deferred additional HPI, ROS, PE to primary provider. 68 yo male here with concern for FB left eye Christiano night from building material. Unknown tetanus Will need visual acuity and exam VSS Medications Administered Discontinued Medications Generic Name Dose Route Start Last Admin Trade Name Gabo PRN Reason Stop Dose Admin Erythromycin 1 cm 07/27/23 15:12 07/27/23 15:35 Erythromycin Base 0.5% Oph Oin 1 Gm Tube EYE-BOTH 07/27/23 15:13 1 cm ONCE ONE Administration Fluorescein Sodium 1 strip 07/27/23 13:14 07/27/23 15:38 Fluorescein Sodium Strip EYE-LEFT 07/27/23 13:15 Not Given ONCE ONE Tetracaine HCl 1 drop 07/27/23 13:14 07/27/23 15:37 Tetracaine Hcl/Pf 0.5% Oph Vi 4 Ml Drops EYE-LEFT 07/27/23 13:15 Not Given ONCE ONE Medical Decision Making Medical Decision Making [facility] Narrative: Patient is a 68 year old assigned male at with a history of GERD and asthma presenting to the emergency department today with bilateral eye irritation, left worse than right. Patient's physical exam was as noted in the physical exam portion of this note. I explained my physical exam findings to the patient. I answered all questions asked by the patient. I removed the eye lash from the left eye, without incident. I stressed the importance of the patient taking his medication as prescribed. I stressed the importance of the patient following up with his primary care provider and eyeglass maker. I stressed the importance of the patient returning to the emergency department immediately if his symptoms were to worsen or if he were to develop any dizziness, shortness of breath, difficulty breathing, chest pain, blurry vision, loss of vision, nausea, vomiting, abdominal pain, fever, chills, back pain, or any other complaints. Patient verbalized agreement and understanding with this treatment plan and discharge. Differential Diagnosis Differential Diagnoses: The differential diagnosis associated with the presentation includes Corneal abrasion Foreign body in left eye Admission/Observation Consideration of admission/observation: Escalation of care including admission/observation considered Patient would have been admitted to the hospital had his clinical presentation warranted hospital admission. Prescription Management I considered prescription management with: Antibiotic (patient prescribed an antibiotic for his corneal abrasions) Procedures FB Removal Eye Time Out performed: Yes Location: eye (L) Foreign body: other (embedded eye lash) Technique: other (direct removal with forceps) Procedure performed under: direct visualization with magnification Post-procedure medication: ophthalmic antibiotic Patient tolerated procedure: well Critical Care Time Critical Care Time Critical Care Time: Yes Total Critical Care Time: 35 Attestation: I spent 35 minutes of Critical Care Time with this patient. This does not include time spent on separately reported billable procedures. Discharge Plan Discharge Clinical Impression: Abrasion, corneal, Foreign body in eye Patient Disposition: Home, Self-Care Instructions: Corneal Abrasion (DC), Eye Foreign Body (ED) Additional Instructions: Follow up with your primary care provider and an eye specailist. Return to the emergency department immediately if your symptoms worsen or if you develop any dizziness, shortness of breath, difficulty breathing, chest pain, blurry vision, loss of vision, nausea, vomiting, abdominal pain, fever, chills, back pain, or any other complaints. Lillie un seguimiento con lopez proveedor de atenci?n primaria y un especialista en ojos. Regrese al departamento de emergencias inmediatamente si julia s?ntomas empeoran o si presenta mareos, dificultad para respirar, dificultad para respirar, dolor en el pecho, visi?n borrosa, p?rdida de la visi?n, n?useas, v?mitos, dolor abdominal, fiebre, escalofr?os, dolor de espalda o cualquier otras quejas. Prescriptions: New erythromycin 5 mg/gram (0.5 %) ointment 0.5 inch ophthalmic (eye) Q4H Qty: 3.5 0RF No Action omeprazole 20 mg capsule,delayed release(DR/EC) 20 mg PO BID Qty: 60 4RF colchicine 0.6 mg tablet 0.6 mg PO DAILY budesonide-formoterol [Symbicort] 160-4.5 mcg/actuation HFA aerosol inhaler 2 inh inhalation BID loratadine [Allergy Relief (loratadine)] 10 mg tablet 10 mg PO DAILY fluticasone propionate 50 mcg/actuation spray,suspension 1 spray intranasal DAILY montelukast 10 mg tablet 10 mg PO DAILY gabapentin 800 mg tablet 800 mg PO TID quetiapine 300 mg tablet 300 mg PO BEDTIME terazosin 5 mg capsule 5 mg PO BEDTIME acetaminophen 500 mg tablet 500 mg PO Q6H PRN (Reason: Pain) temazepam 15 mg capsule 15 mg PO BEDTIME PRN albuterol sulfate 90 mcg/actuation HFA aerosol inhaler 2 inh inhalation Q4H PRN (Reason: Wheezing) olmesartan 20 mg tablet 20 mg PO QAM docusate sodium [Stool Softener] 100 mg capsule 100 mg PO DAILY ketotifen fumarate 0.025 % (0.035 %) drops 1 drp ophthalmic (eye) BID Rx Instructions: administer at least 8 hours apart polyvinyl alcohol [Artificial Tears (polyvin alc)] 1.4 % drops 1 drp ophthalmic (eye) TID-QID sildenafil 100 mg tablet 100 mg PO DAILY PRN (Reason: Erectile Dysfunction) Rx Instructions: administer 30 minutes to 4 hours before activity tramadol 50 mg tablet 100 mg PO Q8H PRN (Reason: severe pain) lidocaine 5 % ointment topical QAM peg 3350-electrolytes [Golytely] 236-22.74-6.74 -5.86 gram recon soln 240 ml PO Q10M 1 Days Qty: 4000 0RF Rx Instructions: until fecal effluent is clear; do not exceed a total volume of 2,000 mL Linzess 290 mcg capsule 290 mcg PO QAM 30 Days Qty: 30 6RF rosuvastatin 10 mg tablet 10 mg PO QAM valsartan 80 mg tablet 80 mg PO QAM sulfamethoxazole-trimethoprim [Bactrim DS] 800-160 mg tablet 1 tab PO BID 14 Days Qty: 28 0RF Referrals: Ramses Mathur [Physician] - (Call to establish and follow up with an eyeglass maker. Llame para establecer y realizar un seguimiento con un oftalm?logo.) Lida Mckeon MD [Primary Care Provider] - Stand Alone Forms: Work/School Release Interventions: ED Discharge Assessment Last Done: 07/27/23 15:45 Discharge Date/Time: 07/27/23 15:48 Print Language: Italian
== END 2023-07-27 15:48 | disposition home or self-care (01) ==
LOC: HO.ED 15:33
PROVIDERS: Emergency Provider Student in an Organized Health Care Education/Training Program; PCP Family Medicine
DX: T15.02XA Foreign body in cornea, left eye, initial encounter (principal); W44.8XXA Other foreign body entering into or through a natural orifice, initial encounter; Y93.9 Activity, unspecified; Y92.89 Other specified places as the place of occurrence of the external cause; Y99.9 Unspecified external cause status
CPT/HCPCS: 65220; 99283; 99284

== ENCOUNTER 2023-08-19 12:37 | Outpatient (REF) | payer OTHER, SELFPAY ==
[2023-08-19 13:10] LABS: MANUAL DIFF FLAG NO
[2023-08-19 13:17] LABS: Basophils Percent Auto 0.9 % (0-2); Eosinophils Percent Auto 0.9 % (0-4); Hematocrit 42.6 % (42.0-52.0); Hemoglobin 14.2 g/dl (14.0-18.0); Imm Gran Abs Auto 0.01 X10*3/uL (0.00-0.03); Imm Gran Pct Auto 0.2 % (0.0-0.4); Lymphocytes Absolute Auto 1.4 X10*3/uL (1.2-4.9); Lymphocytes Percent Auto 30.1 % (20-40); Mean Corpuscular HGB Conc 33.3 g/dl (31.0-36.0); Mean Corpuscular Hemoglobin 30.1 pg (27.0-33.0); Mean Corpuscular Volume 90.3 fL (80.0-98.0); Mean Platelet Volume 9.3 fL (9.4-12.4); Monocytes Absolute Auto 0.4 X10*3/uL (0.1-1.2); Monocytes Percent Auto 8.4 % (2-11); Neutrophils Absolute Auto 2.7 x10*3/uL (2.0-8.3); Neutrophils Percent Auto 59.5 % (45-73); Platelet Count 147 X10*3/uL (160-400); Red Blood Count 4.72 X10*6/uL (4.60-5.80); Red Cell Distribution Width 12.2 % (11.0-16.0); White Blood Count 4.5 X10*3/uL (4.8-10.8)
[2023-08-19 13:41] LABS: Estimated Average Glucose 108 mg/dL; Hemoglobin A1c % 5.4 % (<6.0)
[2023-08-19 14:13] LABS: Alanine Aminotransferase 25 U/L (0-40); Albumin Level 4.2 g/dL (3.5-5.0); Alkaline Phosphatase 47 U/L (39-117); Anion Gap 11 (12-20); Aspartate Amino Transferase 27 U/L (5-37); Bilirubin Total 0.4 mg/dL (0.0-1.0); Blood Urea Nitrogen 12 mg/dL (9-16); Calcium 9.2 mg/dL (8.4-10.2); Carbon Dioxide 29 mmol/L (22-29); Chloride 105 mmol/L (96-108); Estimated Glomerular Filt Rate > 60; Glucose Random 107 mg/dL (60-115); Potassium 4.4 mmol/L (3.3-5.1); Sodium 141 mmol/L (135-145); Total Protein 7.5 g/dL (6.5-8.0)
[2023-08-19 14:23] LABS: Ferritin 158 ng/mL (20-250); TSH reflex Free T4 1.77 uIU/mL (0.32-4.0)
[2023-08-19 14:26] LABS: Folate 12.1 ng/mL (> or = 4.0); Vitamin B12 1238 pg/mL (200-900)
== END 2023-08-19 12:38 | disposition home or self-care (01) ==
LOC: HO.HHCL 12:37
PROVIDERS: Visit Provider Registered Nurse
DX: R41.3 Other amnesia (principal)
CPT/HCPCS: 36415; 80053; 82607; 82728; 82746; 83036; 84443; 85025

== ENCOUNTER 2023-08-20 14:08 | Outpatient (REF) | payer OTHER, SELFPAY ==
[2023-08-20 16:31] LABS: Uric Acid 3.9 mg/dL (3.4-7.0)
== END 2023-08-20 14:09 | disposition home or self-care (01) ==
LOC: HO.HHCL 14:08
PROVIDERS: Visit Provider Nurse Practitioner Family
DX: Z87.39 Personal history of other diseases of the musculoskeletal system and connective tissue (principal)
CPT/HCPCS: 36415; 84550

== ENCOUNTER 2023-10-10 14:05 | Outpatient (REF) | payer OTHER, SELFPAY ==
--- NOTE | ~2023-10-10 | MR_ITS ---
EXAMINATION: MR BRAIN WITHOUT CONTRAST CLINICAL INFORMATION: 69-year-old with suspected dementia, strong family history of Alzheimer's COMPARISON: MRI brain on 05/04/2019 TECHNIQUE: MRI of the brain was obtained using routine sequences without contrast. FINDINGS: Please note that the vertex/most superior aspect of the brain is outside of the [id number] on the axial sequences. No acute intracranial hemorrhage or infarct. Scattered and confluent periventricular and deep white matter T2/FLAIR hyperintensities, nonspecific however commonly seen with small vessel ischemic disease. Diffuse prominence of the sulci with associated ex vacuo dilation of the ventricles compatible with global cerebral atrophy. Redemonstration of arachnoid cyst in the left middle cranial fossa measuring up to 1.2 cm in maximum thickness, unchanged. There is associated mass effect on the subjacent left temporal lobe. No midline shift or hydrocephalus. No acute extra-axial fluid collections. The osseous structures are unremarkable. Partially empty sella. The pineal gland and remaining midline structures are unremarkable. No orbital pathology. The paranasal sinuses and mastoid air cells are clear. MR/MR head/brain wo con IMPRESSION: Within the limitations of this study, -No acute intracranial abnormality. -Chronic microangiopathy and global cerebral atrophy.
== END 2023-10-10 14:06 | disposition home or self-care (01) ==
LOC: HO.MRI 14:05
PROVIDERS: PCP Family Medicine; Visit Provider Registered Nurse
DX: R41.3 Other amnesia (principal)
CPT/HCPCS: 70551

== ENCOUNTER 2023-10-22 10:58 | Outpatient (AMB) | payer OTHER, SELFPAY ==
--- NOTE | 2023-10-22 11:10 | A.OFFVIS_ITS ---
Intake Vital Signs 10/22/23 11:13 Height 5 ft 11 in Weight 231 lb 7.766 oz BMI 32.3 BP 132/64 Blood Pressure Location Rt brachial Position Sitting Pulse 102 H Pulse Source Pulse Oximeter Pulse Oximetry (%) 96 Oxygen Delivery Method Room Air Intake Visit Reasons: Gout/CM Intake Note: New patient, externally referred, presents to office today for gout. 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 Farnsworth is a very pleasant 68 year old male here on referral from his primary care for evaluation of gout and multiple joint pain. He has a past medical history of asthma, constipation and GERD. He is currently takes colchicine for his gout flare. His last gout flare was 1 month ago He has been to the ER about 3 times for swelling to his hands feet and knees. For his joint pains takes tramadol, Tylenol and gabapentin and takes lidocaine patch for his lower back pain. [facility] Medical History (Updated 11/04/23 @ 20:37 [facility] Crystal arthropathy of hand Gout Intermittent pain and swelling of hand Lower back pain Neck pain Pain in joint involving multiple sites History of urinary hesitancy Dysuria Elevated PSA Pre-op examination Environmental allergies Dyspnea on exertion GERD (gastroesophageal reflux disease) Asthma Surgical History Hx of umbilical hernia repair Hx of hernia repair Hx of colonoscopy Family History Father Prostate cancer Mother Alzheimer disease Sister Cancer Social History (Updated 10/22/23 @ 11:17 by ARVIN [place]) Alcohol intake: former Patient Tobacco Use Status: Former Tobacco user Current occupational status: unemployed Review of Systems Const All systems reviewed & are unremarkable except as noted in HPI and below Physical Exam Vital Signs: Last Vital Signs Pulse 102 H 10/22/23 11:13 BP 132/64 10/22/23 11:13 Pulse Ox 96 10/22/23 11:13 Oxygen Delivery Method Room Air 10/22/23 11:13 BMI result Body Mass Index 32.3 APPEARANCE: Patient in no acute distress EYES no redness, normal EARS:? External ear normal. NOSE/SINUS:? Airflow through both nares, no nasal discharge, no bleeding THROAT:? Oral mucosa moist, no ulcerations NECK:? No thyromegaly or masses, no adenopathy, trachea midline. HEART:? Regular rhythm, S1-S2 heard, no murmurs, rubs or gallops. LUNG:? Clear to percussion and auscultation EXTREMITIES:? No edema, no calf tenderness, normal peripheral pulses. NEURO:? Oriented and alert x3.? No focal weakness.? Reflexes symmetric.? Gait normal. SKIN:? There are no skin lesions evident. No objective signs of Raynaud's phenomenon. JOINT EXAM: Cervical Spine:.? Full range of motion without pain; no tenderness. Thoracic Spine:.? No scoliosis.? No tenderness on palpation. Lumbar Spine:.? Alignment normal.? Partial range of motion with discomfort and tenderness. Chest Wall:.? No tenderness, swelling, increased warmth or erythema. Hands:.? Normal pain-free range of motion without tenderness, swelling, increased warmth or erythema. 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 Wrists:.? Normal pain-free range of motion without tenderness, swelling, increased warmth or erythema. Elbows:. Normal pain-free range of motion without tenderness, swelling, increased warmth or erythema. Shoulders:.?? Full range of motion without pain. No tenderness, weakness, swelling, increased warmth or erythema. Hips:.? Full range of motion without pain. Hip bursa:.? No tenderness. Knees:.?? Normal pain-free range of motion without tenderness, swelling, increased warmth or erythema.? There is no effusion or crepitation Ankles:.? Normal pain-free range of motion without tenderness, swelling, increased warmth or erythema. Feet:.? Normal pain-free range of motion without tenderness, swelling, increased warmth or erythema. Tender points:? No tenderness to digital palpation at the occiput, trapezius, second rib, lateral epicondyle, knees, greater trochanter and gluteal area bilaterally. ? Results Reviewed Results Reviewed: 10/22/2023 WBC 4.5, RBC 4.67, HGB 14.1, HCT 42.4 ESR 9, creatinine 0.87 CRP 0.44 IgG 1341 IgA 247 IgM 70 Rheumatoid factor 13.0 CCP 60 TONY 01:40 Negative NATALIA: TB: Hep panel 10/28/2023 3.8 uric acid Assessment & Plan Assessment & Plan (1) Pain in joint involving multiple sites: Code(s): M25.50 - Pain in unspecified joint (2) Crystal arthropathy of hand: Code(s): M11.9 - Crystal arthropathy, unspecified Plan # crystal arthropathy- Gout versus chondrocalcinosis: Mr. Farnsworth reports that he has had several episodes of hand swelling within the last few months each time he has been treated at the ER. He says it is usually resolved with colchicine. He labs do not have hyperuricemia and so I will not consider to start allopurinol at this time. We will continue to monitor and use colchicine to treat the episodes. One wonders if this could be chondrocalcinosis given that his uric acid is within normal limits. Additionally the swelling seems to happen mainly on the dorsum of his hands unless in a specific joint which is often seen in chondrocalcinosis We will obtain hand x-rays to assess further - chondrocalcinosis can be seen on x-ray as opposed to uric acid crystals. #Multiple joint pain: At this time I do not suspect that he has an autoimmune inflammatory arthritis that underlies his knee pain, feet and lower back. I suspect he has osteoarthritis on board. For his pain he can continue to use the lidocaine patches, tramadol and Tylenol and gabapentin which she says does help. I will obtain lower back x-rays to evaluate extent of the DDD. We can discuss the option of pain management at next visit. I will also obtain a rheumatological panel for thorough evaluation. I spent 40 minutes reviewing history evaluating patient and documenting. Follow-up in 3 weeks Orders: Orders Anti-Centromere B Antibodies 10/22/23 M25.50 - Pain in unspecified joint Anti Extractable Nuclear Ag 10/22/23 M25.50 - Pain in unspecified joint Erythrocyte Sedimentation Rate 10/22/23 M25.50 - Pain in unspecified joint Immunofixation Pnl, Serum 10/22/23 M25.50 - Pain in unspecified joint Immunoglobulins,IgG IgA IgM 10/22/23 M25.50 - Pain in unspecified joint Creatine Kinase Total 10/22/23 M25.50 - Pain in unspecified joint Protein Electrophoresis, Serum 10/22/23 M25.50 - Pain in unspecified joint Scleroderma 70 Antibody 10/22/23 M25.50 - Pain in unspecified joint T Spot TB 10/22/23 M25.50 - Pain in unspecified joint XR cervical spine 2V 10/22/23 M54.2 - Cervicalgia, M54.50 - Low back pain, unspecified XR hand LT 2V 10/22/23 M79.643 - Pain in unspecified hand, M79.89 - Other specified soft tissue disorders XR hand RT 2V 10/22/23 M79.643 - Pain in unspecified hand, M79.89 - Other specified soft tissue disorders TONY Reflex Titer and Pattern 10/22/23 M25.50 - Pain in unspecified joint Anti DNA DS Antibody 10/22/23 M25.50 - Pain in unspecified joint Complete Blood Count Auto Diff 10/22/23 M25.50 - Pain in unspecified joint Comprehensive Met. Panel 10/22/23 M25.50 - Pain in unspecified joint C Reactive Protein 10/22/23 M25.50 - Pain in unspecified joint Hepatitis A,B,C Profile 10/22/23 M25.50 - Pain in unspecified joint Sjogren's Antibodies 10/22/23 M25.50 - Pain in unspecified joint Rheumatoid Factor 10/22/23 M25.50 - Pain in unspecified joint Cyclic Citrullinated Peptide 10/22/23 M25.50 - Pain in unspecified joint XR lumbar spine 2-3V 10/22/23 M54.50 - Low back pain, unspecified Coding Level of Care Code New Pt Level 4 (77208) Diagnoses Pain in joint involving multiple sites M25.50 Crystal arthropathy of hand M11.9
[2023-10-22 11:13] VITALS: BP 132/64; PULSE 102; O2SAT 96; BMI 32.3
== END 2023-10-22 11:55 | disposition home or self-care (01) ==
PROVIDERS: PCP Family Medicine; Visit Provider Nurse Practitioner Family
DX: M25.50 Pain in unspecified joint (principal); M11.9 Crystal arthropathy, unspecified
CPT/HCPCS: 99204

== ENCOUNTER 2023-10-22 10:58 | Outpatient (REF) | payer OTHER, SELFPAY ==
--- NOTE | ~2023-10-22 | XR_ITS ---
EXAMINATION: CERVICAL SPINE 3 VIEWS CLINICAL INFORMATION: Lower back pain. COMPARISON: None. TECHNIQUE: Frontal, lateral, swimmer's and odontoid views are obtained. FINDINGS: Vertebral body heights are normal. At C3-C4, there is a 2 mm retrolisthesis. At C4-C5, there is mild disc space narrowing. At C5-C6, there is moderate disc space narrowing. At C6-C7, there is marked disc space narrowing. No acute fracture or spondylolisthesis is seen. There is multi-level endplate arthropathy. The dens and C7-T1 interface are normal. The posterior elements are intact. There is no prevertebral soft tissue swelling. XR/XR lumbar spine 2-3V IMPRESSION: There is multi-level cervical degenerative disc disease, most pronounced at C6-C7, where degenerative change is marked. EXAMINATION: XR LUMBOSACRAL SPINE CLINICAL INFORMATION: Lower back pain. COMPARISON: Radiographs dated 09/03/2019; CT abdomen and pelvis dated 09/09/2018; renal ultrasound dated 04/22/2023. TECHNIQUE: AP and lateral views of the lumbar spine and lateral view of the lumbosacral junction. FINDINGS: Vertebral body heights are normal. There is a minimal lumbar levoscoliosis. At L4-L5 and L5-S1, there is moderate disc space narrowing. The remaining disc spaces are relatively well-maintained. No acute fracture or spondylolisthesis is seen. There is multi-level mild lower thoracic and moderate lower lumbar endplate arthropathy. There is multi-level facet arthropathy, most pronounced at L5-S1. The paravertebral soft tissues are unremarkable. There is right inguinal herniorrhaphy mesh. There are 3 adjacent right abdominal calcifications of uncertain etiology, the largest measuring 1.1 cm. IMPRESSION: 1. There is a minimal lumbar levoscoliosis. 2. There is moderate degenerative disc disease at L4-L5 and L5-S1. 3. There is multi-level endplate arthropathy and facet arthropathy. 4. There are 3 adjacent right abdominal calcifications of uncertain etiology. These could be further evaluated with CT, if clinically indicated.
--- NOTE | ~2023-10-22 | XR_ITS ---
EXAMINATION: XR HAND, RIGHT CLINICAL INFORMATION: Pain. COMPARISON: None available. TECHNIQUE: PA, lateral, and oblique views of the right hand. FINDINGS: Bony alignment and mineralization are normal. There is a neutral ulnar variance. There is mild osteoarthritic change of the interphalangeal joint of the thumb and of the first distal interphalangeal joint. No abnormal bone erosion is seen. There is no fracture or dislocation. The proximal and distal carpal rows are intact. There is narrowing of the radiocarpal joint, and there is calcification of the triangular fibrocartilage. No focal soft tissue swelling, gas or foreign body is seen. XR/XR hand LT 2V IMPRESSION: 1. There is mild osteoarthritic change of the interphalangeal joint of the right, and of the first distal interphalangeal joint. 2. There is degenerative change of the right radiocarpal joint. 3. There is chondrocalcinosis, which can be associated with gout, CPPD or hypercalcemia. EXAMINATION: XR HAND, LEFT CLINICAL INFORMATION: Pain. COMPARISON: None available. TECHNIQUE: PA, lateral, and oblique views of the left hand. FINDINGS: Bony alignment and mineralization are normal. There is a neutral ulnar variance. There is mild osteoarthritic change of the interphalangeal joint of the thumb and of the first and second metacarpophalangeal joints. No abnormal bone erosion is seen. There is no fracture or dislocation. The proximal and distal carpal rows are intact. There is narrowing of the radiocarpal joint, and there is calcification of the triangular fibrocartilage. No focal soft tissue swelling, gas or foreign body is seen. IMPRESSION: 1. There is mild osteoarthritic change of the interphalangeal joint of the left thumb, and mild osteoarthritic change is seen of the first and second metacarpal phalangeal joints. 2. There is degenerative change of the left radiocarpal joint. 3. There is chondrocalcinosis, which can be associated with gout, CPPD or hypercalcemia.
--- NOTE | ~2023-10-22 | XR_ITS ---
EXAMINATION: XR HAND, RIGHT CLINICAL INFORMATION: Pain. COMPARISON: None available. TECHNIQUE: PA, lateral, and oblique views of the right hand. FINDINGS: Bony alignment and mineralization are normal. There is a neutral ulnar variance. There is mild osteoarthritic change of the interphalangeal joint of the thumb and of the first distal interphalangeal joint. No abnormal bone erosion is seen. There is no fracture or dislocation. The proximal and distal carpal rows are intact. There is narrowing of the radiocarpal joint, and there is calcification of the triangular fibrocartilage. No focal soft tissue swelling, gas or foreign body is seen. XR/XR hand RT 2V IMPRESSION: 1. There is mild osteoarthritic change of the interphalangeal joint of the right, and of the first distal interphalangeal joint. 2. There is degenerative change of the right radiocarpal joint. 3. There is chondrocalcinosis, which can be associated with gout, CPPD or hypercalcemia. EXAMINATION: XR HAND, LEFT CLINICAL INFORMATION: Pain. COMPARISON: None available. TECHNIQUE: PA, lateral, and oblique views of the left hand. FINDINGS: Bony alignment and mineralization are normal. There is a neutral ulnar variance. There is mild osteoarthritic change of the interphalangeal joint of the thumb and of the first and second metacarpophalangeal joints. No abnormal bone erosion is seen. There is no fracture or dislocation. The proximal and distal carpal rows are intact. There is narrowing of the radiocarpal joint, and there is calcification of the triangular fibrocartilage. No focal soft tissue swelling, gas or foreign body is seen. IMPRESSION: 1. There is mild osteoarthritic change of the interphalangeal joint of the left thumb, and mild osteoarthritic change is seen of the first and second metacarpal phalangeal joints. 2. There is degenerative change of the left radiocarpal joint. 3. There is chondrocalcinosis, which can be associated with gout, CPPD or hypercalcemia.
--- NOTE | ~2023-10-22 | XR_ITS ---
EXAMINATION: CERVICAL SPINE 3 VIEWS CLINICAL INFORMATION: Lower back pain. COMPARISON: None. TECHNIQUE: Frontal, lateral, swimmer's and odontoid views are obtained. FINDINGS: Vertebral body heights are normal. At C3-C4, there is a 2 mm retrolisthesis. At C4-C5, there is mild disc space narrowing. At C5-C6, there is moderate disc space narrowing. At C6-C7, there is marked disc space narrowing. No acute fracture or spondylolisthesis is seen. There is multi-level endplate arthropathy. The dens and C7-T1 interface are normal. The posterior elements are intact. There is no prevertebral soft tissue swelling. XR/XR cervical spine 2V IMPRESSION: There is multi-level cervical degenerative disc disease, most pronounced at C6-C7, where degenerative change is marked. EXAMINATION: XR LUMBOSACRAL SPINE CLINICAL INFORMATION: Lower back pain. COMPARISON: Radiographs dated 09/03/2019; CT abdomen and pelvis dated 09/09/2018; renal ultrasound dated 04/22/2023. TECHNIQUE: AP and lateral views of the lumbar spine and lateral view of the lumbosacral junction. FINDINGS: Vertebral body heights are normal. There is a minimal lumbar levoscoliosis. At L4-L5 and L5-S1, there is moderate disc space narrowing. The remaining disc spaces are relatively well-maintained. No acute fracture or spondylolisthesis is seen. There is multi-level mild lower thoracic and moderate lower lumbar endplate arthropathy. There is multi-level facet arthropathy, most pronounced at L5-S1. The paravertebral soft tissues are unremarkable. There is right inguinal herniorrhaphy mesh. There are 3 adjacent right abdominal calcifications of uncertain etiology, the largest measuring 1.1 cm. IMPRESSION: 1. There is a minimal lumbar levoscoliosis. 2. There is moderate degenerative disc disease at L4-L5 and L5-S1. 3. There is multi-level endplate arthropathy and facet arthropathy. 4. There are 3 adjacent right abdominal calcifications of uncertain etiology. These could be further evaluated with CT, if clinically indicated.
[2023-10-22 12:36] LABS: MANUAL DIFF FLAG NO
[2023-10-22 13:19] LABS: Basophils Percent Auto 0.9 % (0-2); Eosinophils Absolute Auto 0.1 X10*3/uL (0.0-0.4); Eosinophils Percent Auto 1.1 % (0-4); Hematocrit 42.4 % (42.0-52.0); Hemoglobin 14.1 g/dl (14.0-18.0); Imm Gran Abs Auto 0.01 X10*3/uL (0.00-0.03); Imm Gran Pct Auto 0.2 % (0.0-0.4); Lymphocytes Absolute Auto 1.2 X10*3/uL (1.2-4.9); Lymphocytes Percent Auto 25.5 % (20-40); Mean Corpuscular HGB Conc 33.3 g/dl (31.0-36.0); Mean Corpuscular Hemoglobin 30.2 pg (27.0-33.0); Mean Corpuscular Volume 90.8 fL (80.0-98.0); Mean Platelet Volume 9.3 fL (9.4-12.4); Monocytes Absolute Auto 0.4 X10*3/uL (0.1-1.2); Neutrophils Absolute Auto 2.9 x10*3/uL (2.0-8.3); Neutrophils Percent Auto 64.3 % (45-73); Platelet Count 159 X10*3/uL (160-400); Red Blood Count 4.67 X10*6/uL (4.60-5.80); Red Cell Distribution Width 12.4 % (11.0-16.0); White Blood Count 4.5 X10*3/uL (4.8-10.8)
[2023-10-22 13:57] LABS: Alanine Aminotransferase 18 U/L (0-40); Albumin Level 4.1 g/dL (3.5-5.0); Alkaline Phosphatase 49 U/L (39-117); Anion Gap 9 (12-20); Aspartate Amino Transferase 24 U/L (5-37); Bilirubin Total 0.4 mg/dL (0.0-1.0); Blood Urea Nitrogen 11 mg/dL (9-16); C Reactive Protein 0.44 mg/dL (< or = 0.50); Calcium 9.5 mg/dL (8.4-10.2); Carbon Dioxide 29 mmol/L (22-29); Chloride 107 mmol/L (96-108); Estimated Glomerular Filt Rate > 60; Glucose Random 111 mg/dL (60-115); Potassium 4.4 mmol/L (3.3-5.1); Sodium 141 mmol/L (135-145); Total Protein 7.7 g/dL (6.5-8.0)
[2023-10-22 13:58] LABS: Erythrocyte Sedimentation Rate 9 MM/HR (0-15)
[2023-10-22 13:59] LABS: Rheumatoid Factor < 13.0 IU/mL (<15.0)
[2023-10-23 07:33] LABS: HBS Num1 134.43 mIU/mL (0-7.99); HBc Num1 0.07 S/CO (0.00-0.79); HBsAGNum1 0.32 S/CO (0.00-0.99); Hepatitis A Antibody IgM 0.29 Index (0-0.79); Hepatitis B Core Antibody Nonreactive (Nonreactive); Hepatitis B Surface Antigen Negative (Negative); ~HepC Num1 0.29 S/CO (0.00-0.79); ~Hepatitis A Antibody IgM Nonreactive (Nonreactive); ~Hepatitis B Surface Antibody REACTIVE (Nonreactive); ~Hepatitis C Antibody Nonreactive (Nonreactive)
[2023-10-23 21:58] LABS: Prot Elec - Albumin 4.2 g/dL (3.8-4.8); Prot Elec - Alpha1 0.3 g/dL (0.2-0.3); Prot Elec - Alpha2 0.8 g/dL (0.5-0.9); Prot Elec - Beta 1 0.4 g/dL (0.4-0.6); Prot Elec - Beta 2 0.5 g/dL (0.2-0.5); Prot Elec - Gamma 1.3 g/dL (0.8-1.7); Prot Elec - Total Protein 7.4 g/dL (6.1-8.1)
[2023-10-23 22:23] LABS: Anti DNA DS Antibody <1 IU/mL; Antibody to SS-A Antigen <1.0 NEG AI (<1.0 NEG); Antibody to SS-B Antigen <1.0 NEG AI (<1.0 NEG); SM/Ribonucleoprotein Ab <1.0 NEG AI (<1.0 NEG); Scleroderma 70 Antibody <1.0 NEG AI (<1.0 NEG); Smith Protein <1.0 NEG AI (<1.0 NEG)
[2023-10-23 22:29] LABS: Anti-Centromere B Antibodies <1.0 NEG AI (<1.0 NEG)
[2023-10-24 12:58] LABS: Cyclic Citrullinated Peptide <16 UNITS
[2023-10-25 08:04] LABS: TS Negative Control Passed; TS Panel A 0; TS Panel B 0; TS Positive Control Passed; TSpotTB Negative (Negative)
[2023-10-25 14:38] LABS: IgA 247 mg/dL (70-320); IgG 1341 mg/dL (600-1540); IgM 70 mg/dL (50-300)
[2023-10-27 13:34] LABS: Anti Nuclear Antibody Pattern Nuclear, Homogeneous; Anti Nuclear Antibody Screen POSITIVE (NEGATIVE); Anti Nuclear Antibody Titer 1:40 titer
== END 2023-10-22 10:59 | disposition home or self-care (01) ==
LOC: HO.XRAY 10:58
PROVIDERS: PCP Registered Nurse; Visit Provider Nurse Practitioner Family
DX: M25.50 Pain in unspecified joint (principal); M79.89 Other specified soft tissue disorders; M54.2 Cervicalgia; M54.50 Low back pain, unspecified; M79.643 Pain in unspecified hand; M11.9 Crystal arthropathy, unspecified
CPT/HCPCS: 36415; 72040; 72100; 73120; 80053; 82550; 82784; 84165; 85025; 85652; 86038; 86039; 86140; 86200; 86225; 86235; 86334; 86431; 86481; 86704; 86706; 86709; 86803; 87340; 99202

== ENCOUNTER 2023-10-28 10:30 | Outpatient (REF) | payer OTHER, SELFPAY ==
[2023-10-28 12:26] LABS: Uric Acid 3.8 mg/dL (3.4-7.0)
== END 2023-10-28 10:31 | disposition home or self-care (01) ==
LOC: HO.HHCL 10:30
PROVIDERS: Visit Provider Student in an Organized Health Care Education/Training Program
DX: M10.9 Gout, unspecified (principal)
CPT/HCPCS: 36415; 84550

== ENCOUNTER 2023-12-19 13:57 | Outpatient (AMB) | payer OTHER, SELFPAY ==
--- NOTE | 2023-12-19 13:58 | A.OFFVIS_ITS ---
Vital Signs 12/19/23 14:11 Height 5 ft 11 in Weight 233 lb 0.458 oz BMI 32.5 BP 130/78 Blood Pressure Location Rt brachial Position Sitting Pulse 97 Pulse Oximetry (%) 96 Intake Visit Reasons: PsA/cm Intake Note: Patient presents today for PsA follow up. Data Processing Operator Required: Yes Data Processing Operator Language: Information Security Consultant Name: Michael Najera [id number] Information Interpreted: clinical only Allergies aspirin [ASPIRIN] Allergy (Severe, Verified 12/19/23 14:09) ANAPHYLAXIS, rash HPI Comments Details: Mr. Farnsworth 68 yoM is a very pleasant 68 year old male here to review labs for evaluation of gout and multiple joint pain. He has no swelling and flare or ER visit since last visit. --still takes colchicine every day --walks with a cane 10/24/2023 Initial Visit: Mr. Farnsworth is a very pleasant 68 year old male here on referral from his primary care for evaluation of gout and multiple joint pain. He has a past medical history of asthma, constipation and GERD. He is currently takes colchicine for his gout flare. His last gout flare was 1 month ago He has been to the ER about 3 times for swelling to his hands feet and knees. For his joint pains takes tramadol, Tylenol and gabapentin and takes lidocaine patch for his lower back pain. [facility] Medical History (Updated 12/19/23 @ 14:39 [facility] Pseudogout involving multiple joints Multilevel degenerative disc disease Crystal arthropathy of hand Gout Intermittent pain and swelling of hand Lower back pain Neck pain Pain in joint involving multiple sites History of urinary hesitancy Dysuria Elevated PSA Pre-op examination Environmental allergies Dyspnea on exertion GERD (gastroesophageal reflux disease) Asthma Surgical History Hx of umbilical hernia repair Hx of hernia repair Hx of colonoscopy Family History Father Prostate cancer Mother Alzheimer disease Sister Cancer Social History (Updated 10/22/23 @ 11:17 by ARVIN Ireland) Alcohol intake: former Patient Tobacco Use Status: Former Tobacco user Current occupational status: unemployed Review of Systems Const All systems reviewed & are unremarkable except as noted in HPI and below Physical Exam Vital Signs: Last Vital Signs Pulse 97 12/19/23 14:11 BP 130/78 12/19/23 14:11 Pulse Ox 96 12/19/23 14:11 BMI result Body Mass Index 32.5 APPEARANCE: Patient in no acute distress HEART:? Regular rhythm, S1-S2 heard, no murmurs, rubs or gallops. LUNG:? Clear to percussion and auscultation EXTREMITIES:? No edema, no calf tenderness, normal peripheral pulses. NEURO:? Oriented and alert x3.? No focal weakness.? Reflexes symmetric.? Gait normal. JOINT EXAM: Hands:.? Normal pain-free range of motion without tenderness, swelling, increased warmth or erythema. Able to make a full fist and has a good ingot stripper strength. Wrists:.? Normal pain-free range of motion without tenderness, swelling, increased warmth or erythema. Elbows:. Normal pain-free range of motion without tenderness, swelling, increased warmth or erythema. Shoulders:.?? Full range of motion without pain. No tenderness, weakness, swelling, increased warmth or erythema. Hips:.? Full range of motion without pain. Hip bursa:.? No tenderness. Knees:.?? Normal pain-free range of motion without tenderness, swelling, in creased warmth or erythema.? There is no effusion or crepitation Ankles:.? Normal pain-free range of motion without tenderness, swelling, increased warmth or erythema. Feet:.? Normal pain-free range of motion without tenderness, swelling, increased warmth or erythema. Tender points:? No tenderness to digital palpation at the occiput, trapezius, second rib, lateral epicondyle, knees, greater trochanter and gluteal area bilaterally. ? Results Reviewed Results Reviewed: [facility] Physician: Kourtney Bolanos Date of Service: 10/22/23 Procedure(s): XR hand RT 2V Accession Number(s): [id number] cc: Kourtney Bolanos; AnconaJeanne~ EXAMINATION: XR HAND, RIGHT CLINICAL INFORMATION: Pain. COMPARISON: None available. TECHNIQUE: PA, lateral, and oblique views of the right hand. FINDINGS: Bony alignment and mineralization are normal. There is a neutral ulnar variance. There is mild osteoarthritic change of the interphalangeal joint of the thumb and of the first distal interphalangeal joint. No abnormal bone erosion is seen. There is no fracture or dislocation. The proximal and distal carpal rows are intact. There is narrowing of the radiocarpal joint, and there is calcification of the triangular fibrocartilage. No focal soft tissue swelling, gas or foreign body is seen. XR/XR hand RT 2V IMPRESSION: 1. There is mild osteoarthritic change of the interphalangeal joint of the right, and of the first distal interphalangeal joint. 2. There is degenerative change of the right radiocarpal joint. 3. There is chondrocalcinosis, which can be associated with gout, CPPD or hypercalcemia. EXAMINATION: XR HAND, LEFT CLINICAL INFORMATION: Pain. COMPARISON: None available. TECHNIQUE: PA, lateral, and oblique views of the left hand. FINDINGS: Bony alignment and mineralization are normal. There is a neutral ulnar variance. There is mild osteoarthritic change of the interphalangeal joint of the thumb and of the first and second metacarpophalangeal joints. No abnormal bone erosion is seen. There is no fracture or dislocation. The proximal and distal carpal rows are intact. There is narrowing of the radiocarpal joint, and there is calcification of the triangular fibrocartilage. No focal soft tissue swelling, gas or foreign body is seen. IMPRESSION: 1. There is mild osteoarthritic change of the interphalangeal joint of the left thumb, and mild osteoarthritic change is seen of the first and second metacarpal phalangeal joints. 2. There is degenerative change of the left radiocarpal joint. 3. There is chondrocalcinosis, which can be associated with gout, CPPD or hypercalcemia. Patient: Chetan Farnsworth MR#: [id number] : 1955 Acct:[id number] Age/Sex: 68 / M ADM Date: 10/22/23 Loc: HO.XRAY Attending Dr: Kourtney JACOME Ordering Physician: Kourtney Bolanos Date of Service: 10/22/23 Procedure(s): XR cervical spine 2V Accession Number(s): [id number] cc: Kourtney Bolanos; AnconaJeanne MALL MANAGER~ EXAMINATION: CERVICAL SPINE 3 VIEWS CLINICAL INFORMATION: Lower back pain. COMPARISON: None. TECHNIQUE: Frontal, lateral, swimmer's and odontoid views are obtained. FINDINGS: Vertebral body heights are normal. At C3-C4, there is a 2 mm retrolisthesis. At C4-C5, there is mild disc space narrowing. At C5-C6, there is moderate disc space narrowing. At C6-C7, there is marked disc space narrowing. No acute fracture or spondylolisthesis is seen. There is multi-level endplate arthropathy. The dens and C7-T1 interface are normal. The posterior elements are intact. There is no prevertebral soft tissue swelling. XR/XR cervical spine 2V IMPRESSION: There is multi-level cervical degenerative disc disease, most pronounced at C6-C7, where degenerative change is marked. EXAMINATION: XR LUMBOSACRAL SPINE CLINICAL INFORMATION: Lower back pain. COMPARISON: Radiographs dated 09/03/2019; CT abdomen and pelvis dated 09/09/2018; renal ultrasound dated 04/22/2023. TECHNIQUE: AP and lateral views of the lumbar spine and lateral view of the lumbosacral junction. FINDINGS: Vertebral body heights are normal. There is a minimal lumbar levoscoliosis. At L4-L5 and L5-S1, there is moderate disc space narrowing. The remaining disc spaces are relatively well-maintained. No acute fracture or spondylolisthesis is seen. There is multi-level mild lower thoracic and moderate lower lumbar endplate arthropathy. There is multi-level facet arthropathy, most pronounced at L5-S1. The paravertebral soft tissues are unremarkable. There is right inguinal herniorrhaphy mesh. There are 3 adjacent right abdominal calcifications of uncertain etiology, the largest measuring 1.1 cm. IMPRESSION: 1. There is a minimal lumbar levoscoliosis. 2. There is moderate degenerative disc disease at L4-L5 and L5-S1. 3. There is multi-level endplate arthropathy and facet arthropathy. 4. There are 3 adjacent right abdominal calcifications of uncertain etiology. These could be further evaluated with CT, if clinically indicated. Laboratory Tests 10/22/23 12:35 ESR 9 Calcium 9.5 AST 24 ALT 18 Alkaline Phosphatase 49 Total Creatine Kinase 148 C-Reactive Protein 0.44 Total Protein 7.7 IgG Total 1341 IgA Total 247 IgM 70 Rheumatoid Factor < 13.0 Cycl Citrul Peptide IgG <16 TONY Titer 1:40 H Assessment & Plan Assessment & Plan (1) Pain in joint involving multiple sites: Code(s): M25.50 - Pain in unspecified joint Category: Medical (2) Multilevel degenerative disc disease: Code(s): M53.9 - Dorsopathy, unspecified Category: Medical (3) Pseudogout involving multiple joints: Code(s): M11.89 - Other specified crystal arthropathies, multiple sites Category: Medical Plan #Crystal arthropathy- Psuedogout: Rheum panel within normal range, ESR/CRP wnl. He has not a a flare since lst visit. The labs still do not have hyperuricemia and so I will not consider to start allopurinol at this time. We will continue to monitor and use colchicine to treat the episodes. Additionally the swelling seems to happen mainly on the dorsum sof tissue of his hands and not in a specific joint which is often seen in chondrocalcinosis. Chondrocalcinosis is evident on imaging of hands and knees and is likely the cause of the swelling. Chondrocalcinosis can be seen on x-ray as opposed to uric acid crystals. We will continue to treat as episodic. #Multiple joint pain/DDD: At this time I do not suspect that he has an autoimmune inflammatory arthritis that underlies his knee pain, feet and lower back. There is moderate to severe OA through his spine as seen on imaging I personally reviewed. For his pain he can continue to use the lidocaine patches, tramadol and Tylenol and gabapentin which he says does help. I spent 20 minutes reviewing chart, evaluating patient and documenting. Follow-up in 6 months Coding Level of Care Code Tele Est Pt Level 3 (79980) Complex EM visit Add On G2211 Diagnoses Pain in joint involving multiple sites M25.50 Multilevel degenerative disc disease M53.9 Pseudogout involving multiple joints M11.89
[2023-12-19 14:11] VITALS: BP 130/78; PULSE 97; O2SAT 96; BMI 32.5
== END 2023-12-19 14:29 | disposition home or self-care (01) ==
LOC: HO.RHE 13:57
PROVIDERS: PCP Registered Nurse; Visit Provider Nurse Practitioner Family
DX: M25.50 Pain in unspecified joint (principal); M53.9 Dorsopathy, unspecified; M11.89 Other specified crystal arthropathies, multiple sites
CPT/HCPCS: 99213; G2211

== ENCOUNTER → 2023-12-19 13:57 | Outpatient (BNVA) | payer OTHER, SELFPAY | PROVIDERS: PCP Registered Nurse; Visit Provider Nurse Practitioner Family ==

== ENCOUNTER 2024-01-08 09:26 | Outpatient (AMB) | payer OTHER, SELFPAY ==
[2024-01-08 09:29] VITALS: BP 150/53; PULSE 89; BMI 32.1
--- NOTE | 2024-01-08 09:29 | A.OFFVIS_ITS ---
Vital Signs 01/08/24 09:29 Height 5 ft 11 in Weight 230 lb BMI 32.1 BP 150/53 H Blood Pressure Location Rt brachial Position Sitting Pulse 89 Intake Visit Reasons: Follow up medication Intake Note: Greek returns to in office visit today in follow up of CIC. CC: Patient states that he has to take the Linzess and MOM in order to have a BM. Denies other GI symptoms. Wellfield Technician Required: Yes Accompanied by: Self / Same As Patient Allergies aspirin [ASPIRIN] Allergy (Severe, Verified 01/08/24 09:34) ANAPHYLAXIS, rash HPI HPI Follow up medication: Details: Assessment & Plan (1) Chronic idiopathic constipation: Code(s): K59.04 - Chronic idiopathic constipation Plan: Maltese #Zainab Live He is taking the Lnzess at 290mcg adn MOM and this is moving his bowels well. The bowels are softer that his past formed BM's but he feels well and is not straining. He was no aware of the scope appt, it is as above and he has a follow up with me 03/20. He is exercising more and joined a gym and actually walked here for his appt from the [place]. Keep February appointment. (2) GERD (gastroesophageal reflux disease): Code(s): K21.9 - Gastro-esophageal reflux disease without esophagitis (3) Tubular adenoma of colon: Comment: 2019 scope repeat 5 years Code(s): D12.6 - Benign neoplasm of colon, unspecified COLONOSCOPY 03/06/23 Findings: Terminal Ileum-normal Cecum:normal Ascending Colon: normal Transverse Colon -normal Descending Colon:normal Sigmoid Colon: mild diverticulosis Rectum: Retroflexion with small internal hemorrhoids, grade I Anorectum - normal Impression and Post Procedure Diagnosis: internal hemorrhoids diverticular disease Plan: High fiber diet leaflet Avoid straining at stool, epsom salts and sitz bath, anusol supps or cream Repeat Colonoscopy in 5 years due to fair prep on left side or earlier if clinically indicated TODAY'S VISIT Maltese Andie Live Patient has been lost follow-up since 02/2023 and was never seen after his colonoscopy. He has agreeable to a 5 year follow-up. The procedure was well tolerated. The results were explained and the patient is agreeable to the follow-up interval as stated. The bowel pattern has returned to normal. Education was provided to tell any 1st degree relatives about their findings to be sure that they are screened by age 45. Educated that they will be put on a recall list when it is time for their repeat scope but should they move out of state or away from the hospital they will need to remember along with their primary to repeat the procedure in a timely fashion to avoid any adverse complic ations. He says he continues to do well on his omeprazole 20 mg twice a day and his Linzess 290 micro g. He has no new health problems to report in fact he says he has been taking his medicines and exercising to help protect his overall health. Return office visit in 6 months [facility] Medical History Pseudogout involving multiple joints Multilevel degenerative disc disease Crystal arthropathy of hand Gout Intermittent pain and swelling of hand Lower back pain Neck pain Pain in joint involving multiple sites History of urinary hesitancy Dysuria Elevated PSA Pre-op examination Environmental allergies Dyspnea on exertion GERD (gastroesophageal reflux disease) Asthma Surgical History Hx of umbilical hernia repair Hx of hernia repair Hx of colonoscopy Family History Father Prostate cancer Mother Alzheimer disease Sister Cancer Social History Alcohol intake: former Patient Tobacco Use Status: Former Tobacco user Current occupational status: unemployed Review of Systems Const Denies fatigue, Denies fever(s), Denies night sweats, Denies poor appetite and Denies weight loss Eyes Details: glasses Reports requires corrective lenses ENT Reports Normal hearing present, Denies dental pain, Denies dysphagia, Denies hearing loss, Denies mouth pain, Denies odynophagia, Denies throat swelling, Denies tongue swelling and Reports other (Dentition adequate) Card Reports no additional complaints Resp Reports no additional complaints GI Details: Denies abdominal pain, Denies melena, Denies bloating, Denies hematochezia, Reports constipation, Denies GI cramping, Denies dysphagia, Denies excessive flatus, Denies early satiety, Reports heartburn, Denies diarrhea, Denies nausea, Denies odynophagia, Denies vomiting and Denies hematemesis Skin/Breast Denies pruritus, Denies lesions, Denies rash and Denies jaundice Neuro Reports Normal hearing present and Denies Abnormal speech present Endo Denies fatigue Aller/Immun Denies throat swelling and Denies tongue swelling Physical Exam Vital Signs: Last Vital Signs Pulse 89 01/08/24 09:29 BP 150/53 H 01/08/24 09:29 BMI result Body Mass Index 32.1 Const General: cooperative, no acute distress, well developed and well groomed Nutritional Appearance: well nourished and obese Orientation/consciousness: oriented to person, oriented to place and oriented to time Limitations: language barrier HEENT Head: Yes normocephalic and Yes atraumatic Eyes General: appearance normal, both eyes and all related structures Pupils: Equal, round and reactive pupils present Neck Neck: Yes normal visual inspection and Yes no lymphadenopathy Thyroid: Thyroid normal Resp Effort & Inspection: normal respiratory effort and able to speak in complete sentences Auscultation: clear to auscultation bilaterally Cardio Rate: regular rate Rhythm: regular rhythm Heart sounds: Normal, physiologic split S2 sound present Peripheral pulses: radial pulses present and posterior tibial pulses present GI Inspection: No distended, No Abdominal panniculus present and Yes obesity Palpation (GI): Soft to palpation, nontender, no guarding, not rigid and No hepatosplenomegaly present Percussion: Yes normal to percussion Auscultation: normal bowel sounds Rectal Exam - Male: Yes deferred Skin General skin exam: no rashes or lesions noted, turgor normal, skin not dry, no jaundice, No spider nevi and no striae Rashes: no rashes Nails: normal Neuro General: oriented to person, oriented to place and oriented to time Cranial nerves: Yes Equal, round and reactive pupils present and Yes Normal hearing present Speech: No Abnormal speech present Extrem General: Yes normal to inspection, No clubbing, No cyanosis and No edema Psych Appearance: grossly normal and well kempt Mental Status: mental status grossly normal Speech and movement: Normal speech and movement present Affect: normal affect Attitude: cooperative Thought process: Normal thought process present and not confabulating Thought content: Normal thought content present Insight: Limited insight present (Psych) Judgement: Limited judgement present (Psych) Results Reviewed Results Reviewed: COLONOSCOPY 03/06/23 Findings: Terminal Ileum-normal Cecum:normal Ascending Colon: normal Transverse Colon -normal Descending Colon:normal Sigmoid Colon: mild diverticulosis Rectum: Retroflexion with small internal hemorrhoids, grade I Anorectum - normal Impression and Post Procedure Diagnosis: internal hemorrhoids diverticular disease Plan: High fiber diet leaflet Avoid straining at stool, epsom salts and sitz bath, anusol supps or cream Repeat Colonoscopy in 5 years due to fair prep on left side or earlier if clinically indicated Assessment & Plan Assessment & Plan (1) Tubular adenoma of colon: Comment: 2019 scope repeat 5 years Code(s): D12.6 - Benign neoplasm of colon, unspecified Category: Medical (2) GERD (gastroesophageal reflux disease): Code(s): K21.9 - Gastro-esophageal reflux disease without esophagitis Category: Medical (3) Chronic idiopathic constipation: Code(s): K59.04 - Chronic idiopathic constipation Category: Medical Plan Maltese #Kayce Live Patient has been lost follow-up since 02/2023 and was never seen after his colonoscopy. He has agreeable to a 5 year follow-up. The procedure was well tolerated. The results were explained and the patient is agreeable to the follow-up interval as stated. The bowel pattern has returned to normal. Education was provided to tell any 1st degree relatives about their findings to be sure that they are screened by age 45. Educated that they will be put on a recall list when it is time for their repeat scope but should they move out of state or away from the hospital they will need to remember along with their primary to repeat the procedure in a timely fashion to avoid any adverse complications. He says he continues to do well on his omeprazole 20 mg twice a day and his Linzess 290 micro g. He has no new health problems to report in fact he says he has been taking his medicines and exercising to help protect his overall health. Return office visit in 6 months Medications: Refilled linaclotide (Linzess) 290 mcg PO QAM 30 caps 0RF K59.04 - Chronic idiopathic constipation omeprazole 20 mg PO BID 60 caps 0RF Coding Level of Care Code Est Pt Level 3 (23233) Diagnoses Tubular adenoma of colon D12.6 GERD (gastroesophageal reflux disease) K21.9 Chronic idiopathic constipation K59.04
== END 2024-01-08 09:50 | disposition home or self-care (01) ==
PROVIDERS: PCP Registered Nurse; Visit Provider Nurse Practitioner
DX: D12.6 Benign neoplasm of colon, unspecified (principal); K21.9 Gastro-esophageal reflux disease without esophagitis; K59.04 Chronic idiopathic constipation
CPT/HCPCS: 99213

== ENCOUNTER → 2024-01-08 09:26 | Outpatient (BNVA) | payer OTHER, SELFPAY | PROVIDERS: PCP Registered Nurse; Visit Provider Nurse Practitioner | DX: D12.6 Benign neoplasm of colon, unspecified (principal); K21.9 Gastro-esophageal reflux disease without esophagitis; K59.04 Chronic idiopathic constipation | CPT/HCPCS: 99212 ==

== ENCOUNTER 2024-04-14 12:45 | Outpatient (REF) | payer OTHER, SELFPAY | END 2024-04-14 12:46 | disposition home or self-care (01) | LOC: HO.SH 12:45 | PROVIDERS: Visit Provider Registered Nurse | DX: Z01.118 Encounter for examination of ears and hearing with other abnormal findings (principal); H90.3 Sensorineural hearing loss, bilateral | CPT/HCPCS: 92557; 92567 ==

== ENCOUNTER 2024-06-01 13:16 | Outpatient (REF) | payer OTHER, SELFPAY ==
[2024-06-01 16:39] LABS: Uric Acid 3.5 mg/dL (3.4-7.0)
== END 2024-06-01 13:17 | disposition home or self-care (01) ==
LOC: HO.HHCL 13:16
PROVIDERS: Visit Provider Nurse Practitioner Primary Care
DX: M10.9 Gout, unspecified (principal)
CPT/HCPCS: 36415; 84550

== ENCOUNTER 2024-07-24 09:48 | Outpatient (REF) | payer OTHER, SELFPAY ==
[2024-07-24 11:11] LABS: Magnesium 2.2 mg/dL (1.6-2.6)
[2024-07-24 11:43] LABS: Vitamin B12 666 pg/mL (200-900)
== END 2024-07-24 09:49 | disposition home or self-care (01) ==
LOC: HO.LAB 09:48
PROVIDERS: PCP Registered Nurse; Visit Provider Registered Nurse
DX: M11.89 Other specified crystal arthropathies, multiple sites (principal)
CPT/HCPCS: 36415; 82607; 83735; 84100

== ENCOUNTER 2024-12-21 09:13 | Outpatient (RCR) | payer OTHER, SELFPAY ==
[2024-12-22 08:24] VITALS: BP 169/82; PULSE 89
== END 2024-12-22 08:41 | disposition home or self-care (01) ==
LOC: HO.PT 09:13
PROVIDERS: PCP Registered Nurse; Visit Provider Emergency Medicine
DX: H81.10 Benign paroxysmal vertigo, unspecified ear (principal)
CPT/HCPCS: 97162

== ENCOUNTER 2025-01-18 15:57 | Outpatient (REF) | payer OTHER, SELFPAY ==
--- OUTSIDE RECORDS SUMMARY | 2025-01-18 16:00 | XMS_ITS | Clinical Summary ---
Author Organization [facility] ity Address [address] [place] [address] Care Team Providers Care Payroll Supervisor Name Role Phone Unavailable Primary Care Provider Unavailabl e Social History Tobacco Use Types Packs/Day Years Used Date Smoking Tobacco: Never Assessed Sex and Gender Information Value Date Recorded Sex Assigned at Not on file Legal Sex Male 12:54 AM EST Gender Identity Not on file Sexual Orientation Not on file Plan of Treatment Health Maintenance Due Date Last Done Comments DTaP,Tdap,and Td Vaccines (1 - Tdap) 1974 Pneumococcal Vaccine: 50+ Ye ars (1 of 1 - PCV) 2005 Zoster Vaccines (1 of 2) 2005 COVID-19 Vaccine ( - 2023-2 5 season) 2024 Influenza Vaccine (Season Ended) 2025 RSV Immunization Adult Patie nts (1 - 1-dose 75+ series) 2030 HIB Vaccines Aged Out No longer eligi ble based on patient's age to complete this topic HPV Vaccines Aged Out No longer eligi ble based on patient's age to complete this topic Hepatitis A Vaccines Aged Out No long er eligible based on patient's age to complete this topic Hepatitis B Vaccines Aged Out No long er eligible based on patient's age to complete this topic IPV Vaccines Aged Out No longer eligi ble based on patient's age to complete this topic MMR Vaccines Aged Out No longer eligi ble based on patient's age to complete this topic Meningococcal ACWY Vaccine Aged Out N o longer eligible based on patient's age to complete this topic Meningococcal B Vaccine Aged Out No l onger eligible based on patient's age to complete this topic RSV Immunization Patients Un trudy 20 months Aged Out No longer eligible b ased on patient's age to complete this topic Varicella Vaccines Aged Out No longer eligible based on patient's age to complete this topic
--- OUTSIDE RECORDS SUMMARY | 2025-01-18 16:00 | XMS_ITS | Encounter Summary ---
Author Organization [employer] Address [address] [place] [address] Care Team Providers Care Compliance Nurse Name Role Phone [facility] Primary Care Provider Reason for Visit * Reason Comments Med Refill Encounter Details Date Type Department Care Team ([facility] st Contact Info) Description 05/18/2024 Refill [facility] [address] [place] [address] [facility] [address] [place] [address] Diffuse arthralgia Social History Tobacco Use Types Packs/Day Years Used Date Smoking Tobacco: Former Cigarettes Passive Smoke Exposure: Past Smokeless Tobacco: Never Alcohol Use Standard Drinks/Week Comments Never 0 (1 standard drink = 0.6 oz pur e alcohol) Depression Answer Date Recorded Patient Health Questionnaire-9 Score 0 03/20/2024 Patient Health Questionnaire-9 Score 0 03/20/2024 Last PHQ-9: Questionnaire Data Not on file 0 03/20/2024 Housing Stability Answer Date Recorded What is your housing situation today? I have [employer] 12/09/[address] you li ve. Do you have problems with any of the following? None of the above 12/09/2023 Food Insecurity Answer Date Recorded Within the past 12 months, y ou worried that your food would run out before you got money to buy more: Never True 05/06/2023 Within the past 12 months,th e food you bought just didn't last and you didn't have enough money to get more: Never True Transportation Answer Date Recorded In the past 12 months, has l ack of transportation kept you from medical appts, meetings, work or from getting things needed for daily living? No 12/09/2023 Utilities Answer Date Recorded In the past 12 months, has t he electric, gas, oil or water company threatened to shut off services in your home? No 05/06/2023 Depression Answer Date Recorded Patient Health Questionnaire-2 Score 0 03/20/2024 Sex and Gender Information Value Date Recorded Sex Assigned at Male 05/21/2022 10:22 AM EDT Legal Sex Male 10:22 AM EDT Gender Identity Male 05/21/2022 10:22 AM EDT Sexual Orientation Straight 05/21/2022 10 :22 AM EDT documented as of this encounter Plan of Treatment Upcoming Encounters Date Type Department Care Team (Late st Contact Info) Description 01/26/2025 11:00 AM EDT Office Visit [facility] [address] [place] [id number] 02/01/2025 1:00 PM EDT Clinical Support [address] [address] 02/10/2025 8:00 AM EDT Office Visit [facility] ADULT DENTAL [address] [place] [id number] Kaitlin Seymour [address] [place] [address] 03/05/2025 9:00 AM EDT Office Visit [address] [phone] Jeanne Marie FNP [address] [place] [phone] documented as of this encounter Visit Diagnoses Diagnosis Diffuse arthralgia documented in this encounter Additional Health Concerns Assessment Noted Time PHQ-9 Depression Total Score: 0 03/20/20 9:02 AM EDT documented as of this encounter Care Teams Compliance Nurse Relationship Specialty Start Date End Date Jeanne Marie FNP [address] [place] [phone] PCP - General Family Medicine 07/14/24 documented as of this encounter
--- OUTSIDE RECORDS SUMMARY | 2025-01-18 16:00 | XMS_ITS ---
Author Name Maia Camejo NP Address [address] [place] [address] Phone [phone] [facility] Care Team Providers Care Congressional Assistant Name Role Phone Maia Camejo Unavailable [phone] Unavailable Unavailable Unavailable Reason for Referral Not Available Allergies, adverse reactions, alerts Allergen Type Reaction Severity Status Onset Date Aspirin Allergy to substance (disorder) rash Unknown Active N/A History of medication use Medication Class Instructions Start Date End Date predniSONE 20 mg Tab TAKE 2 TABLETS BY M OUTH EVERY MORNING FOR 5 DAYS 2022-04-23 2022-10-17 Xolair 75 mg/0.5ML Solution Prefilled Syringe No Data Available 2022-04-10 2022-10-17 traMADol 50 mg Tab TAKE 2 TABLETS BY MO UTH EVERY 8 HOURS NEEDED FOR SEVERE PAIN 2022-06-20 No Data Available Albuterol Sulfate HFA 108 (9 0 Base) MCG/ACT Aerosol Solution INHALE 2 PUFFS BY MOUTH EVERY 4 TO 6 HOURS NEEDED 2022-07-19 No Data Available Lidocaine 5 % Oint APPLY TOPICALLY EVER Y MORNING 2022-07-24 No Data Available Omeprazole 20 mg Cap delayed rel TAKE 1 CAPSULE BY MOUTH EVERY DAY BEFORE A MEAL 2022-07-26 No Data Available Colchicine 0.6 mg Tab TAKE 1 TABLET BY M OUTH ONCE DAILY 2022-09-18 No Data Available Artificial Tears 0.2-0.2-1 % Solution Ophthalmic 1 drop each eye at bedtime 2022-10-17 No Data Avail able Bisacodyl EC 5 mg Tab delaye d rel 1 tablet orally daily as needed 2022-10-17 No Data Available Gabapentin tab 400 mg 1 tab PO TID 2022-10-17 No [place] a Available ProAir HFA 108 (90 Base) MCG/ACT Aerosol Solution Inhalation 2 inhalations every 3 hours as needed. 2022-10-17 2024-04-30 Singulair 10 mg Tab 1 daily as needed 2022-10-17 No Data Available Symbicort 160-4.5 MCG/ACT Aerosol Inhalation inhale 2 puffs by mouth twice daily 2022-10-17 No Data Available Terazosin 5 mg Cap 1 capsule orally steve ly at bedtime 2022-10-17 No Data Available traMADol 50 mg Tab 2 tab po TID PRN pain 2022-10-17 No Data Available Simethicone 80 mg Tab Chewable 1 tablet orally one time 2022-10-17 No Data Availab le Viagra 100 mg Tab 1 tablet orally chet y as needed one hour before sexual activity 2022-10-17 No Data Available Valsartan 80 mg Tab 1 tablet orally daily 2022-10-17 No Data Available PriLOSEC OTC 20 mg Tab delayed rel 1 tablet orally daily 30 minutes before morning meal 2022-10-17 No Data Available Flonase Allergy Relief 50 MCG/ACT Suspension Nasal 1-2 sprays each nostril daily 2022-10-17 No Data Available Linzess 290 MCG Cap 1 capsule orally steve ly at least 30 minutes before the first meal of the day on an empty stomach 2022-10-17 No Data Available Milk of Magnesia 7.75 % Suspension 15 ml orally 2 times per day 2022-10-17 No Data Available SEROquel 300 mg Tab 1 tablet orally chet y at bedtime 2022-10-17 No Data Available Temazepam 15 mg Cap 1 capsule orally steve ly at bedtime as needed 2022-10-17 No Data Available predniSONE 20 mg Tab TAKE 2 TABLETS BY M OUTH EVERY DAY IN THE MORNING FOR 5 DAYS 2023-10-28 No Data Available Allopurinol 100 mg Tab TAKE 1 TABLET BY MOUTH EVERY MORNING 2023-06-22 No Data Available Donepezil 10 mg Tab TAKE 1 TABLET BY SANDY TH EVERY DAY AT BEDTIME 2023-12-09 No Data Available Diclofenac Sodium 1 % Gel APPLY 2 GRAMS TOPICALLY TO AFFECTED AREA(S) TWICE DAILY IN THE MORNING AND AT BEDTIME NEEDED FOR PAIN 2023-12-17 No Data Available Rosuvastatin Calcium 10 mg Tab TAKE 1 TABLET BY MOUTH DAILY IN THE MORNING 2023-02-21 No Data Available Loratadine 10 mg Tab TAKE 1 TABLET BY MO UTH EVERY DAY 2024-01-29 No Data Available Eye Itch Relief 0.035 % Solution PLACE 1 DROP INTO THE AFFECTED EYE(S) EVERY DAY IN THE MORNING DIRECTED 2023-09-11 No Data Available Polyvinyl Alcohol 1.4 % Solution PLACE 1 DROP IN THE LEFT EYE FOUR TIMES DAILY NEEDED FOR DRY EYES 2023-08-19 No Data Available Paxlovid (300/100) 20 x 150 mg & 10 x 100 mg Tab Therapy Pack TAKE 2 TABLETS (300 MG) OF NIRMATRELVIR & 1 TABLET (100 MG) OF RITONAVIR BY MOUTH TWICE DAILY FOR 5 DAYS 2024-02-27 No Data Available Ondansetron 4 mg Tab TAKE 1 TABLET BY MO UTH EVERY 8 HOURS NEEDED FOR NAUSEA AND VOMITING 2024-02-27 No Data Available Acetaminophen Extra Strength 500 mg Tab TAKE 1 OR 2 TABLETS BY MOUTH EVERY 6 HOURS NEEDED FOR PAIN 2024-02-27 No Data Available Docusate Sodium 100 mg Cap 2 capsule ora lly daily as needed constipation 2024-04-30 No Data Available Tylenol Extra Strength 500 m g Tab 1 tablet orally Q8H PRN pain 2024-04-30 No Data Available lidocaine cream 5% apply to area 3 time s a day as needed 2024-04-30 No Data Available Diclofenac Sodium 1 % Gel 4 grams topica lly to affected area 4 times per day PRN 2024-04-30 No Data Available Problem List Problem Status Onset Date Resolved Date 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) use of opiate analgesic Active 2024-04-29 N/A Medication: Tramadol 100mg Q8H PRNIndication: degenerative disc disease of cervical and lumbar spine, gout of multiple sitesLast SIGNAL OPERATOR LINGUIST Agreement: 04/14/24Additional considerations/risk factors: concurrent use of BZO (temazepam) & gabapentin Chronic pain Active 2024-04-29 N/A Gabapentin 8 00mgTramadol 50mg PRN, engaged in SIGNAL OPERATOR LINGUIST Program Elevated PSA Active 2024-04-29 N/A 11/2022-Referred to urology + family hx of prostate cancer History of substance abuse Active 2024-04-29 N/A Sober x 12 years MDD (major depressive disorder), recurrent episode, mild Active 2022-10-17 N/A stableseroquel, temazepamfollows with psychPSYCH CONTINGENCY PLANLast updated: 04/30/2024Member to call for the following symptoms: Agitation/ Anxiety/ InsomniaPlanned intervention: Transfer member to [address] [place] [address]/ Hydroxyzine (Vistaril) 25mg PO q6h PRN anxiety Gout Active 2022-10-17 N/A stablecholchic ine, Allopurinol 100 mg TabFollows with PCP Will repeat uric acid levels and inflammatory markers and obtain xrays to evaluate for tophi presence If uric acid remains low will likely still start allopurinol given frequency of flares Asthma Active 2022-10-17 N/A stablealbutero l, symbicort, singulairfollows with pcpContingency plan:1. Start prednisone 40 mg daily *5 days 2. Increase Neb treatments/MDI use to q4h x3 days3. Call CB at the first sign of SOB or increased cough and sputum production. 4. Schedule f/u with primary CHAINSTITCH FELLED SEAM OPERATOR in 1-2 days. Diffuse arthralgia Active 2022-10-17 N/A stable pt reported he might have RAgabapentin, lidocaine creamfollows with PCP Severe dental caries Active 2024-04-29 N/A See dentist on regular basis Generalized gingival recession, severe Active 2024-04-29 N/A Sees dentist r egularly Lumbar degenerative disc disease Active 2024-04-29 N/A Xray Lumbar Spin e October 2023:1. There is a minimal lumbar levoscoliosis.2. There is moderate degenerative disc disease at L4-L5 and L5-S1.3. There is multi-level endplate arthropathy and facet arthropathy.4. There are 3 adjacent right abdominal calcifications of uncertain etiology. These could be further evaluated with CT, if clinically indicated.-Encouraged multifactorial approach to pain control including pharm and non-pharm modalities-UTOX and Pill count as expectedGabapentin, traMADol 50 mg Tab 2 tab po TID PRN, lidocaine cream. Stable Healthcare maintenance Active 2024-04-29 N/A C- Scope: Saw [facility] 01/2023 with note for repeat colonoscopy in 02/2023. Records not in chart will requestPSA: 11/2022 5.33-referred to urology Hyperlipidemia Active 2024-05-02 N/A Rosuvastat in Calcium 10 mg Tab TAKE 1 TABLET BY MOUTH DAILY IN THE MORNINGEncouraged physical activityDiet low in saturated and trans fatHealthy diet, including lots of fruits and vegetables. Constipation Active 2024-05-02 N/A Bisacodyl EC 5 mg , Docusate Sodium 100 mg Cap si capsule orally daily, Linzess 290 MCG Cap.Encouraged High fiber diet, increase fluids intake, physical activities GERD (gastroesophageal reflux disease) Active 2024-05-02 N/A Omeprazole 20 mg Cap.Avoid excessive intake of caffeine, and spicy food, work on a healthy weight, and avoid tomato-based food, mint, etc. ED (erectile dysfunction) Active 2024-05-02 N/A Viagra 100 mg Tab PNR, stable Memory deficits Active 2022-10-17 N/A stable, D onepezil 10 mg Tabpt reports several years of decreased memory Other problems related to medical facilities and other health care Active 2024-05-02 N/A .When member t o call: 1. If bp is elevated sbp>150; dbp>90 or symptomatic-h/a, dizziness, cp, sob. 2. if there is a fall 3. if BS >300 or BS<90 or symptomatic; i.e., dizzy, off balance , shaky, general weakness. 4. if UTI symptoms arise-urinary frequency, dysuria, low abd pain. 5. if pain in knees increases/ or joint pain increased Please remember to call CBContinue to see PCP. Follow-up with [facility] as needed for any acute or disease education needs that may arise 11/02.what should be done when the member calls: see each individual diagnosis for contingency plan Unsteady gait Active 2024-05-02 N/A Need 4 pron g cane. High fall risk Morbid obesity Active 2024-05-02 N/A BMI 34. St ay with healthier food. Caloric-dense food such as fried carbs, deep-fried meat, carb-dense food, and sugary drinks should be avoided. Mixed hyperlipidemia Active 2024-04-29 N/A Rosuvastatin 10mg daily 02/2023-ASCVD 19.6% Tolerating rosuvastatin 10mg Plan to repeat lipid panel at follow up and titrate up as indicatedTotal cholesterol 179, tri 125, HDL 58, ldl 98. 5/ HTN (hypertension) Active 2022-10-17 N/A stable valsartan Terazosin 5 mg BP: 120/70 rangefollows with PCPrecommend monitoring BP routinely; limit salt intakeGFR 91, creat 0.92 K 4.4, 12/07/2022 If blood pressure is>170/90 and symptomatic with headache, dizziness, facial flashing, can take valsartan 40 mg (give 1/2 tablet)*1, recheck BP in 1 hour, rest. If lower 90/50s and dizziness, lay flat, elevate legs over pillows, increase fluids Drug use Active 2024-05-02 N/A Tramadol 50 mg , 2 tab PRNStable Encounters Encounters Type Facility Date of Service Diagnosis/Co mplaint New patient,40-59min; chronic exacerbation, 2 stable chronic or 1 acute illness add add modifier 95 for video (do not use for phone, instead use 14373-73) [facility]2022 Major depressive disorder, recurrent, mildGout, unspecifiedUnspecified asthma, uncomplicatedPain in unspecified jointEssential (primary) hypertensionOther amnesiaBody mass index (bmi) 33.0-33.9, adult New patient,40-59min; chronic exacerbation, 2 stable chronic or 1 acute illness add add modifier 95 for video (do not use for phone, instead use 68725-18) [facility]17[place]2022 New patient,40-59min; chronic exacerbation, 2 stable chronic or 1 acute illness add add modifier 95 for video (do not use for phone, instead use 21524-58) [facility] 10[place]17/2022 New patient,40-59min; chronic exacerbation, 2 stable chronic or 1 acute illness add add modifier 95 for video (do not use for phone, instead use 50433-47) [facility], ([place]) 10/17/2022 New patient,40-59min; chronic exacerbation, 2 stable chronic or 1 acute illness add add modifier 95 for video (do not use for phone, instead use 81526-42) [facility] 10[place]17/2022 New patient,40-59min; chronic exacerbation, 2 stable chronic or 1 acute illness add add modifier 95 for video (do not use for phone, instead use 49788-97) [facility], ([place]) 10/17/2022 New patient,40-59min; chronic exacerbation, 2 stable chronic or 1 acute illness add add modifier 95 for video (do not use for phone, instead use 16061-54) [facility] 10/17/2022 New patient,40-59min; chronic exacerbation, 2 stable chronic or 1 acute illness add add modifier 95 for video (do not use for phone, instead use 79093-39) [facility] 10[place]17/2022 New patient,40-59min; chronic exacerbation, 2 stable chronic or 1 acute illness add add modifier 95 for video (do not use for phone, instead use 05888-45) [facility] 10/17/2022 Estab. patient 30-39min; chronic exacerbation, 2 stable chronic or 1 acute illness add add modifier 95 for video, (do not use for phone, instead use 82093-07) [facility] 04[place]30/2024 Major depressive disorder, recurrent, mildMorbid (severe) obesity due to excess caloriesOther psychoactive substance abuse, in remissionGout, unspecifiedUnspecified asthma, uncomplicatedPain in unspecified jointOther amnesiaOther intervertebral disc degeneration, lumbar region without mention of lumbar back pain or lower extremity painDental caries, unspecifiedLong term (current) use of opiate analgesicGeneralized gingival recession, severeOther chronic painElevated prostate specific antigen [PSA]Encntr for general adult medical exam w/o abnormal findingsMixed hyperlipidemiaHyperlipidemia, unspecifiedConstipation, unspecifiedGastro-esophageal reflux disease without esophagitisMale erectile dysfunction, unspecifiedUnsteadiness on feetEssential (primary) hypertensionOther problems related to medical facilities and other health careOther psychoactive substance use, unspecified, uncomplicatedBody mass index (BMI) 35.0-35.9, adult Estab. patient 30-39min; chronic exacerbation, 2 stable chronic or 1 acute illness add add modifier 95 for video, (do not use for phone, instead use 45246-66) [facility] 04[place]30/20[place] Estab. patient 30-39min; chronic exacerbation, 2 stable chronic or 1 acute illness add add modifier 95 for video, (do not use for phone, instead use 26680-03) [facility] 04[place]30/20[place] Estab. patient 30-39min; chronic exacerbation, 2 stable chronic or 1 acute illness add add modifier 95 for video, (do not use for phone, instead use 16404-10) [facility] 04[place]30/2024 Estab. patient 30-39min; chronic exacerbation, 2 stable chronic or 1 acute illness add add modifier 95 for video, (do not use for phone, instead use 85968-70) [facility] 04/30/2024 Estab. patient 30-39min; chronic exacerbation, 2 stable chronic or 1 acute illness add add modifier 95 for video, (do not use for phone, instead use 25022-42) [facility] 04/30/2024 Estab. patient 30-39min; chronic exacerbation, 2 stable chronic or 1 acute illness add add modifier 95 for video, (do not use for phone, instead use 71872-37) [facility] 04/30/2024 Estab. patient 30-39min; chronic exacerbation, 2 stable chronic or 1 acute illness add add modifier 95 for video, (do not use for phone, instead use 88865-13) [facility] 04/30/2024 Vital Signs Date of Collection Vitals 2022-10-17 10:12:47 Height - 177.8 cmWei ght - 104.33 kgBody Mass Index (BMI) - 33.0 kg/m2BP Diastolic - 89.0 mm[Hg]BP Systolic - 147.0 mm[Hg]Heart Rate - 89.0 /min 2024-04-30 07:05:19 Height - 175.26 cmWe ight - 107.5 kgBody Mass Index (BMI) - 35.0 kg/m2BP Diastolic - 74.0 mm[Hg]BP Systolic - 122.0 mm[Hg]Heart Rate - 84.0 /minO2 % BldC Oximetry - 96.0 %Pain Scale - 4.0 {score} Social History Social History Social History Observation Description Effec tive Time Current Smoking Status Former smoker 2024-12-22 0 Sex Male History of Procedures Procedures Service Procedure code Service date Servicing provider Phone# New patient,40-59min; chronic exacerbation, 2 stable chronic or 1 acute illness add add modifier 95 for video (do not use for phone, instead use 43692-96) 11267 2022-10-17 No Data Available No Data Availa ble Medication List Documented (1159F) 1159F 2022-10-17 No Data Available No Data Lisa ilable Medication Review by prescribing provider or pharmacist documented (1160F) 1160F 2022-10-17 No Data Available No Data Lisa ilable Functional Status Assessed (1170F) 1170F 2022-10-17 No Data Available No Data Avail able Advance Care Directive Advance care planning discussion documented in the medical record (1158F) 1158F 2022-10-17 No Data Available No Data Availa ble BMI obtained (3008F) 3008F 2022-10-17 No Data Availab le No Data Available SBP >= 140 3077F 2022-10-17 No Data Available No Data Available Pain Assessment - Pain Documented on a Pain Scale (1125F) 1125F 2022-10-17 No Data Available No Data Lisa ilable DBP 80-89 (3079F) 3079F 2022-10-17 No Data Available No Data Available Estab. patient 30-39min; chronic exacerbation, 2 stable chronic or 1 acute illness add add modifier 95 for video, (do not use for phone, instead use [id number]) 51540 2024-04-30 No Data Available No Data Availa ble Pain Assessment - Pain Documented on a Pain Scale (1125F) 1125F 2024-04-30 No Data Available No Data Lisa ilable Functional Status Assessed (1170F) 1170F 2024-04-30 No Data Available No Data Avail able Medication List Documented (1159F) 1159F 2024-04-30 No Data Available No Data Lisa ilable Medication Review by prescribing provider or pharmacist documented (1160F) 1160F 2024-04-30 No Data Available No Data Lisa ilable BMI obtained (3008F) 3008F 2024-04-30 No Data Availab le No Data Available Advance Care Directive Advance care planning discussion documented in the medical record (1158F) 1158F 2024-04-30 No Data Available No Data Availa ble No Data Available G8431 2024-04-30 No Data Available No Data Available Functional Status Functional Category Effective Dates Cognition Status: Oriented t o Person, Place and TimeADL Eating: Independent; Ambulation: Independent; Dressing: Independent; Bathing: Independent; Toileting: IndependentIADL Shopping: Some Help Needed; Housekeeping: Some Help Needed; Meal Prep: Some Help Needed; Medications Management: Some Help NeededFalls in last 6 Months: No 2022-10-17 +cane/walker 2022-10-17 Mental Status Status Date A&O x 3 2022-10-17 Assessments Date of Service Assessments 2022-10-17 10:12:47 MDD (major depressiv e disorder), recurrent episode, mildGoutAsthmaDiffuse arthralgiaHTN (hypertension)Memory deficits 2024-04-30 07:05:19 Other problems relat ed to medical facilities and other health care<Add contingency plans here>MDD (major depressive disorder), recurrent episode, mildstableseroquel, temazepamfollows with psychPSYCH CONTINGENCY PLANLast updated: 04/30/2024Member to call for the following symptoms: Agitation/ Anxiety/ InsomniaPlanned intervention: Transfer member to [address] [place] [address]/ Hydroxyzine (Vistaril) 25mg PO q6h PRN anxietyGoutstablecholchicine, Allopurinol 100 mg TabFollows with PCP Will repeat uric acid levels and inflammatory markers and obtain xrays to evaluate for tophi presence If uric acid remains low will likely still start allopurinol given frequency of flaresAsthmastablealbuterol, symbicort, singulairfollows with pcpContingency plan:1. Start prednisone 40 mg daily *5 days 2. Increase Neb treatments/MDI use to q4h x3 days3. Call CB at the first sign of SOB or increased cough and sputum production. 4. Schedule f/u with primary CHAINSTITCH FELLED SEAM OPERATOR in 1-2 days. Diffuse arthralgiastablept reported he might have RAgabapentin, lidocaine creamfollows with PCPMemory deficitsstable, Donepezil 10 mg Tabpt reports several years of decreased memoryLumbar degenerative disc diseaseXray Lumbar Spine October 2023:1. There is a minimal lumbar levoscoliosis.2. There is moderate degenerative disc disease at L4-L5 and L5-S1.3. There is multi-level endplate arthropathy and facet arthropathy.4. There are 3 adjacent right abdominal calcifications of uncertain etiology. These could be further evaluated with CT, if clinically indicated.-Encouraged multifactorial approach to pain control including pharm and non-pharm modalities-UTOX and Pill count as expectedGabapentin, traMADol 50 mg Tab 2 tab po TID PRN, lidocaine cream. StableSevere dental cariesSee dentist on regular basisLong term (current) use of opiate analgesicMedication: Tramadol 100mg Q8H PRNIndication: degenerative disc disease of cervical and lumbar spine, gout of multiple sitesLast SIGNAL OPERATOR LINGUIST Agreement: 04/14/24Additional considerations/risk factors: concurrent use of BZO (temazepam) & gabapentinGeneralized gingival recession, severeSees dentist regularlyChronic painGabapentin 800mgTramadol 50mg PRN, engaged in SIGNAL OPERATOR LINGUIST ProgramElevated PSA 11/2022-Referred to urology + [facility] hx of prostate [facility]Health[facility] 01/2023 with note for repeat colonoscopy in 02/2023. Records not in chart will requestPSA: 11/2022 5.33-referred to urologyMixed hyperlipidemia Rosuvastatin 10mg daily 02/2023-ASCVD 19.6% Tolerating rosuvastatin 10mg Plan to repeat lipid panel at follow up and titrate up as indicatedHistory of substance abuseSober x 12 yearsHyperlipidemiaRosuvastatin Calcium 10 mg Tab TAKE 1 TABLET BY MOUTH DAILY IN THE MORNINGEncouraged physical activityDiet low in saturated and trans fatHealthy diet, including lots of fruits and vegetables.ConstipationBisacodyl EC 5 mg , Docusate Sodium 100 mg Cap si capsule orally daily, Linzess 290 MCG Cap.Encouraged High fiber diet, increase fluids intake, physical activitiesGERD (gastroesophageal reflux disease)Omeprazole 20 mg Cap.Avoid excessive intake of caffeine, and spicy food, work on a healthy weight, and avoid tomato-based food, mint, etc.ED (erectile dysfunction)Viagra 100 mg Tab PNR, stableOther problems related to medical facilities and other health care.When member to call: 1. If bp is elevated sbp>150; dbp>90 or symptomatic-h/a, dizziness, cp, sob. 2. if there is a fall 3. if BS >300 or BS<90 or symptomatic; i.e., dizzy, off balance , shaky, general weakness. 4. if UTI symptoms arise-urinary frequency, dysuria, low abd pain. 5. if pain in knees increases/ or joint pain increased Please remember to call CBContinue to see PCP. [facility] or disease education needs that may arise 11/02.what should be done when the member calls: see each individual diagnosis for contingency planUnsteady gaitNeed 4 prong cane. High fall riskHTN (hypertension)stablevalsartan Terazosin 5 mg BP: 120/70 rangefollows with PCPrecommend monitoring BP routinely; limit salt intakeGFR 91, creat 0.92 K 4.4, 12/07/2022 If blood pressure is>170/90 and symptomatic with headache, dizziness, facial flashing, can take valsartan 40 mg (give 1/2 tablet)*1, recheck BP in 1 hour, rest. If lower 90/50s and dizziness, lay flat, elevate legs over pillows, increase fluidsMorbid obesityBMI 34. Stay with healthier food. Caloric-dense food such as fried carbs, deep-fried meat, carb-dense food, and sugary drinks should be avoided. Plan of Care Date of Service Plans 2022-10-17 10:12:47 Medication Review by prescribing provider or pharmacist documented (1160F)Medication List Documented (1159F)Functional Status Assessed (1170F)Advance Care Directive Advance care planning discussion documented in the medical record (1158F)BMI obtained (3008F)SBP >= 140DBP 80-89 (3079F)Televideo new patient,40-59min; chronic exacerbation, 2 stable chronic or 1 acute illness add modifier 95Pain Assessment - Pain Documented (1125F)Continue to see PCP. Follow-up with [facility] as needed for any acute or disease education needs that may arise.stableseroquel, temazepamfollows with psychstablecholchicine, prednisone PRNFollows with PCPstablealbuterol, proair, symbicort, singulairfollows with pcpstablept reported he might have RAprednisone PRN, tramadolfollows with PCPstablevalsartanBP: 147/89follows with PCPrecommend monitoring BP routinely; limit salt intakestablept reports several years of decreased memoryconsidering a neurology referral 2024-04-30 07:05:19 Functional Status As sessed (1170F)BMI obtained (3008F)Advance Care Directive Advance care planning discussion documented in the medical record (1158F)Advance care planning discussed and documented advance care plan or surrogate decision-maker was documented in the medical record. (1123F)Advance care planning discussed and documented in the medical record beneficiary/patient did not wish to or was unable to provide an advance care plan or name a surrogate decision-maker. (1124F)SBP < 130 (3074F)DBP <80 (3078F)Pain Assessment - Pain Documented (1125F)Televideo 30-39min; chronic exacerbation, 2 stable chronic or 1 acute illness add modifier 95Continue to see PCP. Follow-up with [facility] as needed for any acute or disease education needs that may arise.Call if you have any questions, comments, or concerns.Keep taking your medications as prescribed. Goals Date Goal 2024-04-30 Remember to follow u p with PCP and specialists as directed. 2024-04-30 Ordered 4 prong [employer] Health Concerns Date Concern 2024-04-30 Visit complete using audio and video. Patient/Guardian agreed to visit via telehealth. Today, patient has chief complaint of: follow up care and comprehensive review.Reviewed Allergies, Medications, Active Medical conditions, past medical/surgical history, Social history. 2024-04-30 Most recent hospital stay(s) or ER visit(s) and precipitating factors: 07/27/23 [facility] Foreign body in eyes 2024-04-30 Open HEDIS Measure r alesha: completed 2024-04-30 Need a cane 4 prong
[2025-01-18 17:52] LABS: MANUAL DIFF FLAG NO
[2025-01-18 18:04] LABS: Basophils Absolute Auto 0.1 X10*3/uL (0.0-0.2); Eosinophils Absolute Auto 0.1 X10*3/uL (0.0-0.4); Eosinophils Percent Auto 2.1 % (0-4); Hematocrit 41.4 % (42.0-52.0); Hemoglobin 13.9 g/dl (14.0-18.0); Imm Gran Abs Auto 0.01 X10*3/uL (0.00-0.03); Imm Gran Pct Auto 0.2 % (0.0-0.4); Lymphocytes Absolute Auto 1.9 X10*3/uL (1.2-4.9); Lymphocytes Percent Auto 38.4 % (20-40); Mean Corpuscular HGB Conc 33.6 g/dl (31.0-36.0); Mean Corpuscular Hemoglobin 30.6 pg (27.0-33.0); Mean Corpuscular Volume 91.2 fL (80.0-98.0); Mean Platelet Volume 9.8 fL (9.4-12.4); Monocytes Absolute Auto 0.5 X10*3/uL (0.1-1.2); Monocytes Percent Auto 9.7 % (2-11); Neutrophils Absolute Auto 2.4 x10*3/uL (2.0-8.3); Neutrophils Percent Auto 48.6 % (45-73); Platelet Count 141 X10*3/uL (160-400); Red Blood Count 4.54 X10*6/uL (4.60-5.80); Red Cell Distribution Width 12.7 % (11.0-16.0); White Blood Count 4.9 X10*3/uL (4.8-10.8)
[2025-01-18 18:23] LABS: Alanine Aminotransferase 27 U/L (0-40); Albumin Level 4.5 g/dL (3.5-5.0); Alkaline Phosphatase 48 U/L (39-117); Anion Gap 13 (12-20); Aspartate Amino Transferase 32 U/L (5-37); Bilirubin Total 0.5 mg/dL (0.0-1.0); Blood Urea Nitrogen 20 mg/dL (9-16); Calcium 9.2 mg/dL (8.4-10.2); Carbon Dioxide 25 mmol/L (22-29); Chloride 107 mmol/L (96-108); Cholesterol 159 mg/dL (<200); Estimated Glomerular Filt Rate > 60; Glucose Random 102 mg/dL (60-115); HDL Cholesterol 61 mg/dL (>40); LDL Cholesterol Calculated 84 mg/dL (<100); Potassium 4.3 mmol/L (3.3-5.1); Sodium 141 mmol/L (135-145); Total Protein 7.5 g/dL (6.5-8.0); Triglycerides 70 mg/dL (<150)
[2025-01-18 18:38] LABS: TSH reflex Free T4 1.79 uIU/mL (0.32-4.0)
== END 2025-01-18 15:58 | disposition home or self-care (01) ==
LOC: HO.HHCL 15:57
PROVIDERS: PCP Registered Nurse; Visit Provider Registered Nurse
DX: I10 Essential (primary) hypertension (principal); R42 Dizziness and giddiness
CPT/HCPCS: 36415; 80053; 80061; 84443; 85025

== ENCOUNTER 2025-02-02 10:59 | Outpatient (REF) | payer OTHER, SELFPAY ==
--- NOTE | ~2025-02-02 | MR_ITS ---
EXAMINATION: MR BRAIN/IACS WITHOUT AND WITH CONTRAST CLINICAL INFORMATION: Dizziness, tinnitus, dizziness. Old head injury. 69-year-old male. COMPARISON: MRI of brain 10/10/2023, 05/04/2019. TECHNIQUE: Multiplanar, multisequence MRI of the brain and IACs was obtained before and after the intravenous administration of 10 mL Gadavist. Examination was performed on a 1.5 Dana Siemens high-field unit. FINDINGS: There is no diffusion restriction. There is no intracranial hemorrhage, acute infarction, mass effect, or edema. Ventricles, sulci, and cisterns are diffusely somewhat prominent, in keeping with mildly age advanced cerebral and cerebellar volume loss. No shift of midline. There are a few scattered punctate and minimally confluent foci of white matter T2 hyperintensity in the periventricular, subcortical, and hemispheric deep white matter. These foci are nonspecific but statistically most likely relate to small vessel ischemic changes. Redemonstration of an arachnoid cyst in the left middle cranial fossa measuring up to 1.0 cm diameter, unchanged. There is normal CSF signal within the IACs, CP angle cisterns, prepontine cistern, and labyrinthine structures. The 7th and 8th cranial nerves are normal in course and caliber. There is no abnormal cranial nerve or other enhancement. Midline structures appear normally formed. Partial empty sella. Posterior fossa structures appear normal. Cerebellar tonsils are appropriately located. Major flow voids are preserved within the skull base. The globes and orbital contents demonstrate no abnormalities. Paranasal sinuses are clear bilaterally. Nasal septum is midline without spur. The mastoids and tympanic cavities are normally aerated. Extracranial soft tissues demonstrate no abnormalities. No suspicious bone marrow changes are evident. Atlantoaxial joint is normal. MR/MR head/brain wo/w con IMPRESSION: 1. No evidence of intracranial hemorrhage, acute infarction, mass effect, edema, or abnormal contrast enhancement. 2. Mildly age advanced cerebral and cerebellar volume loss. 3. Mild changes of small vessel ischemia, similar to prior exams. 4. Stable small arachnoid cyst in the left middle cranial fossa. 5. No abnormality of the IACs, 7th or 8th cranial nerves. Electronically signed by: Robin Mejia MD 02/02/2025 01:01 PM EDT
--- OUTSIDE RECORDS SUMMARY | 2025-02-02 12:24 | XMS_ITS ---
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 2024-04-29 N/A Medication: Tramadol 100mg Q8H PRNIndication: degenerative disc disease of cervical and lumbar spine, gout of multiple sitesLast EMR IMPLEMENTATION SPECIALIST Agreement: 04/14/24Additional considerations/risk factors: concurrent use of BZO (temazepam) & gabapentin Chronic pain Active 2024-04-29 N/A Gabapentin 8 00mgTramadol 50mg PRN, engaged in EMR IMPLEMENTATION SPECIALIST Program Elevated PSA Active 2024-04-29 N/A 11/2022-Referred to urology + family hx of prostate cancer History of substance abuse Active 2024-04-29 N/A Sober x 12 years MDD (major depressive disorder), recurrent episode, mild Active 2022-10-17 N/A stableseroquel, temazepamfollows with psychPSYCH CONTINGENCY PLANLast updated: 04/30/2024Member to call for the following symptoms: Agitation/ Anxiety/ InsomniaPlanned intervention: Transfer member to [address] [place] [address]/ Hydroxyzine (Vistaril) 25mg PO q6h PRN anxiety [...] sputum production. 4. Schedule f/u with primary GRAIN CLEANER AND TRANSFER OPERATOR in 1-2 days. Diffuse arthralgia Active [...] maintenance Active 2024-04-29 N/A C- Scope: Saw [facility] [place]/2023 with note for repeat colonoscopy [...] (do not use for phone, instead use 30609-92) [facility]17/2022 Major depressive disorder, recurrent, mildGout, unspecifiedUnspecified asthma, uncomplicatedPain in unspecified jointEssential (primary) hypertensionOther amnesiaBody mass index (bmi) 33.0-33.9, adult New patient,40-59min; chronic exacerbation, 2 stable chronic or 1 acute illness add add modifier 95 for video (do not use for phone, instead use 14159-81) [facility]2022 New patient,40-59min; chronic exacerbation, 2 stable chronic or 1 acute illness add add modifier 95 for video (do not use for phone, instead use 50380-05) [facility]2022 New patient,40-59min; chronic exacerbation, 2 stable chronic or 1 acute illness add add modifier 95 for video (do not use for phone, instead use 02459-02) [facility] ([place] 10/17/2022 New patient,40-59min; chronic exacerbation, 2 stable chronic or 1 acute illness add add modifier 95 for video (do not use for phone, instead use 13994-13) [facility]/2022 New patient,40-59min; chronic exacerbation, 2 stable chronic or 1 acute illness add add modifier 95 for video (do not use for phone, instead use 48148-41) [facility] [place]17/2022 New patient,40-59min; chronic exacerbation, 2 stable chronic or 1 acute illness add add modifier 95 for video (do not use for phone, instead use 67621-55) [facility]2022 New patient,40-59min; chronic exacerbation, 2 stable chronic or 1 acute illness add add modifier 95 for video (do not use for phone, instead use 01725-93) [facility]2022 New patient,40-59min; chronic exacerbation, 2 stable chronic or 1 acute illness add add modifier 95 for video (do not use for phone, instead use 73379-83) [facility]2022 Estab. patient 30-39min; chronic exacerbation, 2 stable chronic or 1 acute illness add add modifier 95 for video, (do not use for phone, instead use 89071-98) [facility] 04[place]30/2024 Major depressive disorder, recurrent, mildMorbid (severe) [...] (do not use for phone, instead use 43047-15) [facility] 04[place]/2024 Estab. patient 30-39min; chronic exacerbation, 2 stable chronic or 1 acute illness add add modifier 95 for video, (do not use for phone, instead use 14870-27) [facility]/2024 Estab. patient 30-39min; chronic exacerbation, 2 stable chronic or 1 acute illness add add modifier 95 for video, (do not use for phone, instead use 23225-25) [facility]/2024 Estab. patient 30-39min; chronic exacerbation, 2 stable chronic or 1 acute illness add add modifier 95 for video, (do not use for phone, instead use 02807-77) [facility] 04[place]/2024 Estab. patient 30-39min; chronic exacerbation, 2 stable chronic or 1 acute illness add add modifier 95 for video, (do not use for phone, instead use 39309-61) [facility]/2024 Estab. patient 30-39min; chronic exacerbation, 2 stable chronic or 1 acute illness add add modifier 95 for video, (do not use for phone, instead use 33807-67) [facility] 04/30/2024 Estab. patient 30-39min; chronic exacerbation, 2 stable chronic or 1 acute illness add add modifier 95 for video, (do not use for phone, instead use 74670-97) [facility] [place] 04/30/2024 Vital Signs Date of Collection Vitals [...] tive Time Current Smoking Status Former smoker 2025-01-19 5 Sex Male History of Procedures Procedures Service Procedure code Service date Servicing provider Phone# New patient,40-59min; chronic exacerbation, 2 stable chronic or 1 acute illness add add modifier 95 for video (do not use for phone, instead use 46120-17) [id number] 2022-10-17 No Data Available No Data Availa [...] (do not use for phone, instead use 71919-64) [id number] 2024-04-30 No Data Available No Data Availa [...] Agitation/ Anxiety/ InsomniaPlanned intervention: Transfer member to [address] [place] [address]/ Hydroxyzine (Vistaril) 25mg PO q6h PRN anxietyGoutstablecholchicine, [...] sputum production. 4. Schedule f/u with primary GRAIN CLEANER AND TRANSFER OPERATOR in 1-2 days. Diffuse arthralgiastablept reported [...] and lumbar spine, gout of multiple sitesLast EMR IMPLEMENTATION SPECIALIST Agreement: 04/14/24Additional considerations/risk factors: concurrent use of BZO (temazepam) & gabapentinGeneralized gingival recession, severeSees dentist regularlyChronic painGabapentin 800mgTramadol 50mg PRN, engaged in EMR IMPLEMENTATION SPECIALIST ProgramElevated PSA 11/2022-Referred to urology + family hx of prostate cancerHealthCore[facility]: [facility] 01/2023 with note for repeat colonoscopy [...] call CBContinue to see PCP. [facility] [...] specialists as directed. 2024-04-30 Ordered 4 prong [employer] Health Concerns Date Concern 2024-04-30 Visit complete using audio and video. Patient/Guardian agreed to visit via telehealth. Today, patient has chief complaint of: follow up care and comprehensive review.Reviewed Allergies, Medications, Active Medical conditions, past medical/surgical history, Social history. 2024-04-30 Most recent hospital stay(s) or ER visit(s) and precipitating factors: 07/27/23 [facility] Foreign body in eyes 2024-04-30 Open HEDIS Measure r alesha: completed 2024-04-30 Need a cane 4 prong
--- OUTSIDE RECORDS SUMMARY | 2025-02-02 12:24 | XMS_ITS | Clinical Summary ---
Author Organization [employer] [facility] ity Address [address] [place] [address] Care Team Providers Care Virologist Name Role Phone Unavailable Primary Care Provider [...] Vaccines (1 of 2) 2005 COVID-19 Vaccine (1 - 2023-2 5 season) 2024 Influenza Vaccine (#1) 2025 RSV Immunization Adult Patie nts (1 [...]
--- OUTSIDE RECORDS SUMMARY | 2025-02-02 12:24 | XMS_ITS | Encounter Summary ---
Author Organization [employer] Address [address] [facility] [address] [place] [address] Care Team Providers Care Bearing Ring Assembler Name Role Phone [facility] Primary Care Provider [phone] Reason for Visit * Reason Comments Med Refill Encounter Details Date Type Department Care Team ([facility] st Contact Info) Description 05/18/2024 Refill [facility] [address] [place] [address] [facility] [address] [place] [address] Diffuse arthralgia Social History Tobacco Use Types [...] Care Team (Late st Contact Info) Description 02/10/2025 8:00 AM EDT Office Visit [facility] AD[facility] DENTAL [address] [place] [address] Kaitlin Seymour [address] [place] [address] 03/02/2025 11:00 AM EDT Office Visit [facility] [address] [place] [phone] 03/05/2025 9:00 AM EDT Office Visit [facility] [address] [place] [address] Jeanne Marie FNP [address] [place] [address] documented as of this encounter Visit Diagnoses Diagnosis Diffuse arthralgia documented in this encounter Additional Health Concerns Assessment Noted Time PHQ-9 Depression Total Score: 0 03/20/20 9:02 AM EDT documented as of this encounter Care Teams Bearing Ring Assembler Relationship Specialty Start Date End Date Jeanne Marie FNP [address] [place] [address] PCP - General Family Medicine 07/14/24 documented as of this encounter
== END 2025-02-02 11:00 | disposition home or self-care (01) ==
LOC: HO.MRI 10:59
PROVIDERS: PCP Registered Nurse; Visit Provider Registered Nurse
DX: H93.13 Tinnitus, bilateral (principal); R42 Dizziness and giddiness
CPT/HCPCS: 70553; A9585

== ENCOUNTER → 2025-02-02 10:59 | Outpatient (BNV) | payer OTHER, SELFPAY | PROVIDERS: PCP Registered Nurse; Visit Provider Radiology Diagnostic Radiology | DX: G93.0 Cerebral cysts (principal) | CPT/HCPCS: 70553 ==

== ENCOUNTER 2025-03-04 12:45 | Outpatient (REF) | payer OTHER, SELFPAY ==
--- OUTSIDE RECORDS SUMMARY | 2025-03-04 13:29 | XMS_ITS | Clinical Summary ---
Author Organization [employer] [facility] ity Address [address] [place] [address] Care Team Providers Care Call Center Specialist Name Role Phone Unavailable Primary Care Provider [...] Vaccine (1 - 2023-2 5 season) 2024 Depression Screening 07/22/2024 Influenza Vaccine (#1) 2025 RSV Immunization Adult [...]
--- OUTSIDE RECORDS SUMMARY | 2025-03-04 13:29 | XMS_ITS ---
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 2024-04-29 N/A Medication: Tramadol 100mg Q8H PRNIndication: degenerative disc disease of cervical and lumbar spine, gout of multiple sitesLast DANDY TENDER Agreement: 04/14/24Additional considerations/risk factors: concurrent use of BZO (temazepam) & gabapentin Chronic pain Active 2024-04-29 N/A Gabapentin 8 00mgTramadol 50mg PRN, engaged in DANDY TENDER Program Elevated PSA Active 2024-04-29 N/A 11/2022-Referred to urology + family hx of prostate cancer History of substance abuse Active 2024-04-29 N/A Sober x 12 years MDD (major depressive disorder), recurrent episode, mild Active 2022-10-17 N/A stableseroquel, temazepamfollows with psychPSYCH CONTINGENCY PLANLast updated: 04/30/2024Member to call for the following symptoms: Agitation/ Anxiety/ InsomniaPlanned intervention: Transfer member to [address] [place] [address]/ Hydroxyzine (Vistaril) 25mg PO q6h PRN anxiety [...] sputum production. 4. Schedule f/u with primary RETAIL STORE ASSOCIATE in 1-2 days. Diffuse arthralgia Active 2022-10-17 [...] maintenance Active 2024-04-29 N/A C- Scope: Saw [facility] 01/2023 with note for repeat colonoscopy [...] (do not use for phone, instead use 83396-25) [facility], ([place] 10/17/2022 Major depressive disorder, recurrent, mildGout, unspecifiedUnspecified asthma, uncomplicatedPain in unspecified jointEssential (primary) hypertensionOther amnesiaBody mass index (bmi) 33.0-33.9, adult New patient,40-59min; chronic exacerbation, 2 stable chronic or 1 acute illness add add modifier 95 for video (do not use for phone, instead use 68347-05) [facility]17/2022 New patient,40-59min; chronic exacerbation, 2 stable chronic or 1 acute illness add add modifier 95 for video (do not use for phone, instead use 81301-63) [facility]17/2022 New patient,40-59min; chronic exacerbation, 2 stable chronic or 1 acute illness add add modifier 95 for video (do not use for phone, instead use 52138-52) [facility], ([place]) 10/17/2022 New patient,40-59min; chronic exacerbation, 2 stable chronic or 1 acute illness add add modifier 95 for video (do not use for phone, instead use 07849-43) [facility]17/2022 New patient,40-59min; chronic exacerbation, 2 stable chronic or 1 acute illness add add modifier 95 for video (do not use for phone, instead use 27824-40) [facility] ([place] 10/17/2022 New patient,40-59min; chronic exacerbation, 2 stable chronic or 1 acute illness add add modifier 95 for video (do not use for phone, instead use 25403-95) [facility] [place] 10[place]17/2022 New patient,40-59min; chronic exacerbation, 2 stable chronic or 1 acute illness add add modifier 95 for video (do not use for phone, instead use 64996-09) [facility] 10[place]17/2022 New patient,40-59min; chronic exacerbation, 2 stable chronic or 1 acute illness add add modifier 95 for video (do not use for phone, instead use 26177-32) [facility]17/2022 Estab. patient 30-39min; chronic exacerbation, 2 stable chronic or 1 acute illness add add modifier 95 for video, (do not use for phone, instead use 99672-39) [facility] [place] 04[place]30/2024 Major depressive disorder, recurrent, mildMorbid (severe) [...] (do not use for phone, instead use 96013-20) [facility] 04[place]30/2024 Estab. patient 30-39min; chronic exacerbation, 2 stable chronic or 1 acute illness add add modifier 95 for video, (do not use for phone, instead use 30153-97) [facility] [place] 04/30/2024 Estab. patient 30-39min; chronic exacerbation, 2 stable chronic or 1 acute illness add add modifier 95 for video, (do not use for phone, instead use 12638-05) [facility] [place] 04/30/2024 Estab. patient 30-39min; chronic exacerbation, 2 stable chronic or 1 acute illness add add modifier 95 for video, (do not use for phone, instead use 84249-16) [facility] [place] 04[place]30/2024 Estab. patient 30-39min; chronic exacerbation, 2 stable chronic or 1 acute illness add add modifier 95 for video, (do not use for phone, instead use 00006-60) [facility] [place] 04[place]30/2024 Estab. patient 30-39min; chronic exacerbation, 2 stable chronic or 1 acute illness add add modifier 95 for video, (do not use for phone, instead use 68570-00) [facility] [place] 04/30/2024 Estab. patient 30-39min; chronic exacerbation, 2 stable chronic or 1 acute illness add add modifier 95 for video, (do not use for phone, instead use 69265-75) [facility] [place] 04/30/2024 Vital Signs Date of Collection Vitals [...] tive Time Current Smoking Status Former smoker 2025 4 Sex Male History of Procedures Procedures Service Procedure code Service date Servicing provider Phone# New patient,40-59min; chronic exacerbation, 2 stable chronic or 1 acute illness add add modifier 95 for video (do not use for phone, instead use 23609-78) [id number] 2022-10-17 No Data Available No Data Availa [...] (do not use for phone, instead use 61923-68) [id number] 2024-04-30 No Data Available No Data Availa [...] Agitation/ Anxiety/ InsomniaPlanned intervention: Transfer member to [address] [place] [address]/ Hydroxyzine (Vistaril) 25mg PO q6h PRN anxietyGoutstablecholchicine, [...] sputum production. 4. Schedule f/u with primary RETAIL STORE ASSOCIATE in 1-2 days. Diffuse arthralgiastablept reported he [...] and lumbar spine, gout of multiple sitesLast DANDY TENDER Agreement: 04/14/24Additional considerations/risk factors: concurrent use of BZO (temazepam) & gabapentinGeneralized gingival recession, severeSees dentist regularlyChronic painGabapentin 800mgTramadol 50mg PRN, engaged in DANDY TENDER ProgramElevated PSA 11/2022-Referred to urology + [facility] hx of prostate cancerHealthMy[facility] 01/2023 with note for repeat colonoscopy [...] call CBContinue to see PCP. [facility] [...] specialists as directed. 2024-04-30 Ordered 4 prong [employer] Health Concerns Date Concern 2024-04-30 Visit complete using audio and video. Patient/Guardian agreed to visit via telehealth. Today, patient has chief complaint of: follow up care and comprehensive review.Reviewed Allergies, Medications, Active Medical conditions, past medical/surgical history, Social history. 2024-04-30 Most recent hospital stay(s) or ER visit(s) and precipitating factors: 07/27/23 [facility] Foreign body in eyes 2024-04-30 Open HEDIS Measure r alesha: completed 2024-04-30 Need a cane 4 prong
== END 2025-03-04 12:46 | disposition home or self-care (01) ==
LOC: HO.SH 12:45
PROVIDERS: Visit Provider Registered Nurse
DX: Z01.118 Encounter for examination of ears and hearing with other abnormal findings (principal); H90.3 Sensorineural hearing loss, bilateral
CPT/HCPCS: 92552; 92556

== ENCOUNTER 2025-04-22 10:13 | Outpatient (REF) | payer OTHER, SELFPAY ==
--- NOTE | ~2025-04-22 | XR_ITS ---
EXAMINATION: XR ELBOW, LEFT CLINICAL INFORMATION: L elbow pain and swelling s/p fall r/o fracture COMPARISON: None available. TECHNIQUE: AP, lateral, and oblique views of the left elbow. FINDINGS: Osteophytes are noted along the margin of the ulnohumeral joint. Minute marginal osteophyte is present involving capitellum. There is an osteophyte involving the coronoid process of ulna. Enthesophyte is present at the lateral epicondyles distal humerus. Anterior fat pad is visible but not clearly displaced. Posterior fat pad is not visible. No fracture line is identified. XR/XR elbow LT min 3V IMPRESSION: Mild to moderate degenerative changes are present in the left elbow. Electronically signed by: Kevin Cormier MD 04/22/2025 11:05 AM EDT
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
--- OUTSIDE RECORDS SUMMARY | 2025-04-22 11:40 | XMS_ITS | Encounter Summary ---
Author Organization [employer] Address [address] [facility] [address] [place] [address] Care Team Providers Care Tetryl Dissolver Operator Name Role Phone [place] [facility] Primary Care Provider [phone] Reason for Visit * Reason Comments Med Refill Encounter Details Date Type Department Care Team (Late st Contact Info) Description 12/23/2024 Refill [facility] [address] [place] [address] [place] [facility] [address] [place] [address] Gouty arthritis of right hand Social History Tobacco Use Types Packs/Day Years Used Date Smoking Tobacco: Former Cigarettes Passive Smoke Exposure: Past Smokeless Tobacco: Never Alcohol Use Standard Drinks/Week Comments Never 0 (1 standard drink = 0.6 oz pur e alcohol) Depression Answer Date Recorded Patient Health Questionnaire-9 Score 0 06/17/2024 Patient Health Questionnaire-9 Score 0 06/17/2024 Last PHQ-9: Questionnaire Data Not on file 1 08/17/2023 Housing Stability Answer Date Recorded What is [...] Date Recorded Patient Health Questionnaire-2 Score 0 06/17/2024 Internet Access Answer Date Recorded Internet Access [...] Description 05/04/2025 11:00 AM EDT Office Visit [facility] [address] [place] [address] 08/24/2025 8:00 AM EST Office Visit [facility] [address] [place] [address] LionKaitlin [address] [place] [address] documented as of this encounter Visit Diagnoses Diagnosis Gouty arthritis of right hand documented in this encounter Additional Health Concerns Assessment Noted Time PHQ-9 Depression Total Score: 0 06/17/20 9:16 AM EST documented as of this encounter Care Teams Tetryl Dissolver Operator Relationship Specialty Start Date End Date Jeanne Marie FNP [address] [place] [address] PCP - General Family Medicine 07/14/24 documented as of this encounter
--- OUTSIDE RECORDS SUMMARY | 2025-04-22 11:40 | XMS_ITS | Encounter Summary ---
Author Organization [employer] Address [address] [facility] [address] [place] [address] Care Team Providers Care Detail Maker And Fitter Name Role Phone [place] [facility] Primary Care Provider [phone] Reason for Visit * Reason Comments Med Refill Encounter Details Date Type Department Care Team (Late st Contact Info) Description 12/22/2024 Refill [facility] [address] [place] [address] [place] [facility] [address] [place] [address] Gouty arthritis of right hand Social History [...] Description 05/04/2025 11:00 AM EDT Office Visit [facility] [address] [place] [address] 08/24/2025 8:00 AM EST Office Visit [facility] [address] [place] [address] LionKaitlin [address] [place] [address] documented as of this encounter Visit Diagnoses Diagnosis Gouty arthritis of right hand documented in this encounter Additional Health Concerns Assessment Noted Time PHQ-9 Depression Total Score: 0 06/17/20 9:16 AM EST documented as of this encounter Care Teams Detail Maker And Fitter Relationship Specialty Start Date End Date Jeanne Marie FNP [address] [place] [address] PCP - General Family Medicine 07/14/24 documented as of this encounter
--- OUTSIDE RECORDS SUMMARY | 2025-04-22 11:40 | XMS_ITS | Encounter Summary ---
Author Organization [employer] Address [address] [facility] [address] [place] [address] Care Team Providers Care Knife Setter Name Role Phone Jeanne Marie [employer] Primary Care Provider [phone] Reason for Visit * Reason Comments Med Refill Encounter Details Date Type Department Care Team (Late st Contact Info) Description 02/15/2025 Refill [facility] [address] [place] [address] Vidhya Infante MD [address] [place] [address] Gouty arthritis of right hand Social History [...] Description 05/04/2025 11:00 AM EDT Office Visit [facility] [address] [place] [address] 08/24/2025 8:00 AM EST Office Visit [facility] [address] [place] [address] LionKaitlin [address] [place] [address] documented as of this encounter Visit Diagnoses Diagnosis Gouty arthritis of right hand documented in this encounter Additional Health Concerns Assessment Noted Time PHQ-9 Depression Total Score: 0 06/17/20 9:16 AM EST documented as of this encounter Care Teams Knife Setter Relationship Specialty Start Date End Date Jeanne Marie FNP [address] [place] [address] PCP - General Family Medicine 07/14/24 documented as of this encounter
--- OUTSIDE RECORDS SUMMARY | 2025-04-22 11:40 | XMS_ITS | Encounter Summary ---
Author Organization [employer] Address [address] [facility] [address] [place] [address] Care Team Providers Care Home And Family Living Professor Name Role Phone [place] [facility] Primary Care Provider [phone] Reason for Visit * Reason Comments Med Refill Encounter Details Date Type Department Care Team ([facility] st Contact Info) Description 07/17/2024 Refill [facility] [address] [place] [address] [place] [facility] [address] [place] [address] Gouty arthritis of right hand Social History [...] Description 05/04/2025 11:00 AM EDT Office Visit [facility] [address] [place] [address] 08/24/2025 8:00 AM EST Office Visit [facility] [address] [place] [address] LionKaitlin [address] [place] [address] documented as of this encounter Visit Diagnoses Diagnosis Gouty arthritis of right hand documented in this encounter Additional Health Concerns Assessment Noted Time PHQ-9 Depression Total Score: 0 06/17/20 9:16 AM EST documented as of this encounter Care Teams Home And Family Living Professor Relationship Specialty Start Date End Date Jeanne Marie FNP [address] [place] [address] PCP - General Family Medicine 07/14/24 documented as of this encounter
--- OUTSIDE RECORDS SUMMARY | 2025-04-22 11:40 | XMS_ITS | Encounter Summary ---
Author Organization [employer] Address [address] [place] [address] Care Team Providers Care Marketing Effectiveness Manager Name Role Phone Jeanne Marie AGRICULTURAL CONSULTANT Primary Care Provider [phone] Encounter Details Date Type Department Care Team (Latest Contact Info) Description 04/22/2025 Travel Social History Tobacco Use Types Packs/Day Years [...] Description 05/04/2025 11:00 AM EDT Office Visit [facility] [address] [place] [address] 08/24/2025 8:00 AM EST Office Visit [facility] [address] [place] [address] Kaitlin Seymour [address] [place] [address] documented as of this encounter Visit Diagnoses Not on filedocumented in this encounter Additional Health Concerns Assessment Noted Time PHQ-9 Depression Total Score: 14 025 9:23 AM EDT documented as of this encounter Care Teams Marketing Effectiveness Manager Relationship Specialty Start Date End Date Jeanne Marie FNP [address] [place] [address] PCP - General Family Medicine 07/14/24 documented as of this encounter
--- OUTSIDE RECORDS SUMMARY | 2025-04-22 11:40 | XMS_ITS | Encounter Summary ---
Author Organization [employer] Address [address] [facility] 7[address] [place] [address] Care Team Providers Care Bander And Cellophaner Helper Machine Name Role Phone [facility] Primary Care Provider [phone] Reason for Visit * Reason Comments Med Refill Encounter Details Date Type Department Care Team (Late st Contact Info) Description 07/09/2023 Refill [facility] [address] [place] [address] [facility] [address] [place] [address] Gouty arthritis of right hand Social History Tobacco Use Types Packs/Day Years Used Date Smoking Tobacco: Former Cigarettes Smokeless Tobacco: Never Alcohol Use Standard Drinks/Week Comments Never 0 (1 standard drink = 0.6 oz pur e alcohol) Depression Answer Date Recorded Patient Health Questionnaire-9 Score 0 01/14/2023 Housing Stability Answer Date Recorded What is your housing situation today? I have fox quinones 05/06/[address] you li ve. Do you have problems with any of the following? None of the above 05/06/2023 Food Insecurity Answer Date Recorded Within the [...] getting things needed for daily living? No 05/06/2023 Utilities Answer Date Recorded In the past 12 months, has t he electric, gas, oil or water company threatened to shut off services in your home? No 05/06/2023 Depression Answer Date Recorded Patient Health Questionnaire-2 Score 0 01/14/2023 Sex and Gender Information Value Date Recorded Sex Assigned at Male 05/21/2022 10:22 AM EDT Legal Sex Male 10:22 AM EDT Gender Identity Male 05/21/2022 10:22 AM EDT Sexual Orientation Straight 05/21/2022 10 :22 AM EDT documented as of this encounter Plan of Treatment Upcoming Encounters Date Type Department Care Team (Late st Contact Info) Description 05/04/2025 11:00 AM EDT Office Visit [facility] [address] [place] [address] 08/24/2025 8:00 AM EST Office Visit [facility] D[facility] [address] [place] [address] Kaitlin Seymour [address] [place] [address] documented as of this encounter Visit Diagnoses Diagnosis Gouty arthritis of right hand documented in this encounter Additional Health Concerns Assessment Noted Time PHQ-9 Depression Total Score: 0 01/15/20 23 11:22 AM EDT documented as of this encounter Care Teams Bander And Cellophaner Helper Machine Relationship Specialty Start Date End Date Jeanne Marie FNP [address] [place] [address] PCP - General Family Medicine 07/14/24 documented as of this encounter
--- OUTSIDE RECORDS SUMMARY | 2025-04-22 11:40 | XMS_ITS | Encounter Summary ---
Author Organization [employer] Address [address] [facility] 7t [place] [address] Care Team Providers Care Client Manager Name Role Phone [facility] Primary Care Provider Reason for Visit * Reason Comments Med Refill Encounter Details Date Type Department Care Team ([facility] st Contact Info) Description 02/03/2025 Refill [facility] [address] [place] [address] [facility] [address] [place] [address] Shortness of breath; Constipation, unspecified constipation type Social History Tobacco Use Types Packs/Day Years [...] Description 05/04/2025 11:00 AM EDT Office Visit [facility] [address] [place] [address] 08/24/2025 8:00 AM EST Office Visit [facility] ADULT DENTAL [address] [place] [address] Lion, Kaitlin [address] [place] [address] documented as of this encounter Visit Diagnoses Diagnosis Shortness of breath Constipation, unspecified constipation type documented in this encounter Additional Health Concerns Assessment Noted Time PHQ-9 Depression Total Score: 0 06/17/20 9:16 AM EST documented as of this encounter Care Teams Client Manager Relationship Specialty Start Date End Date Jeanne Marie FNP [address] [place] [address] PCP - General Family Medicine 07/14/24 documented as of this encounter
--- OUTSIDE RECORDS SUMMARY | 2025-04-22 11:40 | XMS_ITS | Encounter Summary ---
Author Organization [employer] Address [address] [facility] 7[address] [place] [address] Care Team Providers Care Professor Of Visual Arts Name Role Phone Jeanne Marie [facility] Primary Care Provider Reason for Visit * Reason Comments Med Refill Encounter Details Date Type Department Care Team ([facility] Contact Info) Description 03/15/2023 Refill [facility] [address] [place] [id number] Samantha Yang FNP [address] [place] [address] Gouty arthritis of right hand Social History Tobacco Use Types Packs/Day Years Used Date Smoking Tobacco: Former Cigarettes Smokeless Tobacco: Never Alcohol Use Standard Drinks/Week Comments Never 0 (1 standard drink = 0.6 oz pur e alcohol) Depression Answer Date Recorded Patient Health Questionnaire-9 Score 0 01/14/2023 Depression Answer Date Recorded Patient Health Questionnaire-2 Score 0 01/14/2023 Sex and Gender Information Value Date Recorded Sex Assigned at Male 05/21/2022 10:22 AM EDT Legal Sex Male 10:22 AM EDT Gender Identity Male 05/21/2022 10:22 AM EDT Sexual Orientation Straight 05/21/2022 10 :22 AM EDT documented as of this encounter Plan of Treatment Upcoming Encounters Date Type Department Care Team (Late Contact Info) Description 05/04/2025 11:00 AM EDT Office Visit [facility] [address] [place] [address] 08/24/2025 8:00 AM EST Office Visit [facility] ADULT DENTAL [address] [place] [address] Kaitlin Seymour [address] [place] [address] documented as of this encounter Visit Diagnoses Diagnosis Gouty arthritis of right hand documented in this encounter Additional Health Concerns Assessment Noted Time PHQ-9 Depression Total Score: 0 01/15/20 23 11:22 AM EDT documented as of this encounter Care Teams Professor Of Visual Arts Relationship Specialty Start Date End Date Jeanne Marie FNP [address] [place] [address] PCP - General Family Medicine 07/14/24 documented as of this encounter
--- OUTSIDE RECORDS SUMMARY | 2025-04-22 11:40 | XMS_ITS | Encounter Summary ---
Author Organization [employer] Address [address] [facility] 7t [place] [address] Care Team Providers Care Crusher Tender Name Role Phone [facility] Primary Care Provider [phone] Reason for Visit * Reason Comments Med Refill Encounter Details Date Type Department Care Team (Late st Contact Info) Description 07/21/2024 Refill [facility] [address] [place] [address] [facility] [address] [place] [address] Diffuse arthralgia; Muscle spasm; Gouty arthritis of right hand Social History [...] Description 05/04/2025 11:00 AM EDT Office Visit [facility] [address] [place] [address] 08/24/2025 8:00 AM EST Office Visit [facility] ADULT DENTAL [address] [place] [address] Lion, Kaitlin [address] [place] [address] documented as of this encounter Visit Diagnoses Diagnosis Diffuse arthralgia Muscle spasm Spasm of muscle Gouty arthritis of right hand documented in this encounter Additional Health Concerns Assessment Noted Time PHQ-9 Depression Total Score: 0 06/17/20 9:16 AM EST documented as of this encounter Care Teams Crusher Tender Relationship Specialty Start Date End Date Jeanne Marie FNP [address] [place] [address] PCP - General Family Medicine 07/14/24 documented as of this encounter
--- OUTSIDE RECORDS SUMMARY | 2025-04-22 11:40 | XMS_ITS | Encounter Summary ---
Author Organization [employer] Address [address] [facility] [address] 7[address] [place] [address] Care Team Providers Care Grain Manager Name Role Phone Jeanne Marie [employer] SUPERVIS[employer] Primary Care Provider [phone] Reason for Visit * Reason Comments Med Refill Encounter Details Date Type Department Care Team ([facility] st Contact Info) Description 04/21/2025 Refill [facility] [address] [place] [address] Rosalina Boyce, [address] [place] [address] Gouty arthritis of right hand Social History [...] Description 05/04/2025 11:00 AM EDT Office Visit [facility] [address] [place] [address] 08/24/2025 8:00 AM EST Office Visit [facility] [address] [place] [address] LionAnanthKaitlin [address] [place] [address] documented as of this encounter Visit Diagnoses Diagnosis Gouty arthritis of right hand documented in this encounter Additional Health Concerns Assessment Noted Time PHQ-9 Depression Total Score: 14 025 9:23 AM EDT documented as of this encounter Care Teams Grain Manager Relationship Specialty Start Date End Date Jeanne Marie FNP [address] [place] [address] PCP - General Family Medicine 07/14/24 documented as of this encounter
--- OUTSIDE RECORDS SUMMARY | 2025-04-22 11:40 | XMS_ITS | Clinical Summary ---
Author Organization [employer] Address [address] [place] [address] Care Team Providers Care Government Service Executive Name Role Phone Jeanne Marie CAMPAIGN ANALYST Primary Care Provider [phone] Allergies Active Allergy Reactions Criticality Noted Date Comments Aspirin Rash High 06/11/2012 Medications * This document contains information received from the source organization and may not represent a complete record from that organization. ipratropium-albut nupur (Duo-Neb) 0.5-2.5 mg/3 mL nebulizer solutionIndicatio ns:Shortness of breath Take 3 mL by nebulization every 6 (six) hours. 180 mL 2 023 Active temazepam (Restoril) 15 MG capsule 022 Active Blood Pressure Monitoring (Blood Pressure Monitor 3) deviceIndications :Primary hypertension Use to check blood pressure daily 1 each 023 Active ketotifen (Zaditor) 0.025 % ophthalmic solution 2 times a day 023 Active Spiriva Respimat 2.5 MCG/ACT inhaler 022 Active polyvinyl alcohol (Liquifilm Tears) 1.4 % ophthalmic solutionIndicatio ns:Dry eye ONE DROP IN BOTH EYES 3 TO 4 TIMES PER DAY 15 mL 023 Active Spacer/Aero-Holdi ng Chambers (OptiChamber Aleja) misc 1 each every 4 (four) hours if needed (asthma). 1 each 024 Active sildenafil (Viagra) 100 MG tabletIndications :Benign prostatic hyperplasia with urinary obstruction TAKE 1/2 TABLET BY MOUTH DAILY 1 HOUR BEFORE SEXUAL ACTIVITY tablet 2 Active fluticasone (Flonase) 50 MCG/ACT nasal sprayIndications: Shortness of breath SPRAY TWICE IN EACH NOSTRIL DAILY 48 g Active ondansetron (Zofran) 4 MG tabletIndications :COVID-19 TAKE 1 TABLET BY MOUTH EVERY 8 HOURS NEEDED FOR NAUSEA AND VOMITING 20 tablet 024 Active rosuvastatin (Crestor) 10 MG tabletIndications :Primary hypertension TAKE 1 TABLET (10 MG) BY MOUTH IN THE MORNING. 30 tablet 5 025 2025 Active terazosin (Hytrin) 5 MG capsuleIndication s:Benign prostatic hyperplasia with urinary obstruction TAKE 1 CAPSULE BY MOUTH EVERY NIGHT AT BEDTIME 30 capsule 5 025 Active montelukast (Singulair) 10 MG tabletIndications :Shortness of breath TAKE 1 TABLET BY MOUTH EVERY EVENING 30 tablet 5 025 Active meclizine (Antivert) 25 MG tablet Take 1 tablet (25 mg) by mouth if needed in the morning, at noon, and at bedtime for dizziness or nausea. 30 tablet 025 2025 Active valsartan (Diovan) 160 MG tabletIndications :Hypertension, unspecified type Take 1 tablet (160 mg) by mouth Once per day. 90 tablet 3 025 2025 Active cetirizine (ZyrTEC) 10 MG tablet Take 1 tablet (10 mg) by mouth Once per day. 30 tablet 11 025 2025 Active scopolamine (Transderm-Scop) 1 MG/3DAYS patch 72 hourIndications:V ertigo Place 1 patch on the skin every 3 days as needed for dizziness and motion sickness 10 patch Active simethicone (Mylicon) 80 MG chewable tabletIndications :Constipation, unspecified constipation type TAKE 1 TABLET BY MOUTH THREE TIMES A DAY AFTER MEALS AND AT BEDTIME NEEDED 90 tablet 5 025 Active budesonide-formot nupur (Symbicort) 160-4.5 MCG/ACT inhalerIndication s:Shortness of breath INHALE 2 PUFFS BY MOUTH EVERY TWELVE HOURS 10.2 g 5 Active linaCLOtide (Linzess) 290 MCG capsule Take 1 capsule (290 mcg) by mouth before breakfast. Do not crush or chew. 90 capsule 3 025 2025 Active amLODIPine (Norvasc) 5 MG tabletIndications :Primary hypertension Take 1 tablet (5 mg) by mouth Once per day. 30 tablet 11 025 2025 Active pantoprazole (ProtoNix) 40 MG EC tabletIndications :Gastroesophageal reflux disease, unspecified whether esophagitis present Take 1 tablet (40 mg) by mouth before breakfast. 90 tablet 025 Active omeprazole (PriLOSEC) [address] capsule Active valsartan (Diovan) 80 MG tablet Active gabapentin (Neurontin) 400 MG capsuleIndication s:Other chronic pain TAKE 1 CAPSULE BY MOUTH THREE TIMES DAILY 90 capsule 1 Active bisacodyl (Bisacodyl EC) 5 MG EC tabletIndications :Constipation, unspecified constipation type TAKE 1 TABLET BY MOUTH DAILY NEEDED PARA EXTRENIMIENTO 30 tablet 5 Active donepezil (Aricept) 10 MG tabletIndications :Moderate dementia without behavioral disturbance, psychotic disturbance, mood disturbance, or anxiety, unspecified dementia type (CMS/HCC) (HCC) Take 1 tablet (10 mg) by mouth at bedtime. 30 tablet 025 2025 Active olopatadine (Patanol) 0.1 % ophthalmic solutionIndicatio ns:Allergic conjunctivitis of both eyes INSTILL 1 DROP INTO THE AFFECTED EYE(S) TWICE DAILY IN THE MORNING AND AT BEDTIME NEEDED FOR ALLERGIES 5 mL 2 Active albuterol 108 (90 Base) MCG/ACT inhalerIndication s:Shortness of breath INHALE 2 PUFFS EVERY 4 HOURS NEEDED 8.5 g 3 025 Active Eye Itch Relief 0.035 % solutionIndicatio ns:Dry eye INSTILL 1 DROP INTO THE AFFECTED EYE(S) IN THE MORNING DIRECTED 5 mL 1 025 Active colchicine 0.6 MG tabletIndications :Acute gout of knee, unspecified cause, unspecified laterality TAKE 1 TABLET BY MOUTH ONCE DAILY 30 tablet 1 025 Active traMADol (Ultram) 50 MG tabletIndications :Gouty arthritis of right hand Take 2 tablets (100 mg) by mouth every 8 (eight) hours if needed for severe pain for up to 28 days. 168 tablet 025 Active Linzess 72 MCG capsuleIndication s:History of IBS TAKE 1 CAPSULE BY MOUTH ONCE DAILY BEFORE BREAKFAST 30 capsule 1 025 Active QUEtiapine (SEROquel) 100 MG tabletIndications :Insomnia due to other mental disorder Take 1 tablet (100 mg) by mouth at bedtime. 30 tablet 1 025 2024 Active docusate sodium (Colace) 100 MG capsuleIndication s:Constipation, unspecified constipation type TAKE 1 CAPSULE BY MOUTH TWICE A DAY NEEDED 60 capsule 5 025 Active QUEtiapine (SEROquel) 200 MG tabletIndications :Insomnia due to other mental disorder Take 1 tablet (200 mg) by mouth at bedtime. 30 tablet 11 025 Active Acetaminophen Extra Strength 500 MG tabletIndications :Pain TAKE 1 TO 2 TABLETS BY MOUTH EVERY 6 HOURS NEEDED FOR PAIN 100 tablet 1 025 Active Diclofenac Sodium 1 % gel Apply 2 g topically if needed in the morning, at noon, in the evening, and at bedtime (pain). 150 g 3 025 Active lidocaine (Xylocaine) 5 % ointmentIndicatio ns:Muscle spasm Apply topically if needed each day for mild pain. 50 g 3 025 Active predniSONE (Deltasone) 20 MG tablet Take 1 tablet (20 mg) by mouth 2 times daily for 5 days. 10 tablet 025 2024 Active QUEtiapine (SEROquel) 300 MG tablet 022 2024 Discontinued lidocaine (Xylocaine) 5 % ointmentIndicatio ns:Muscle spasm APPLY TOPICALLY IN THE MORNING 30 g 3 024 2024 Discontinued(R eorder (will not trigger notification to Pharmacy)) docusate sodium (Colace) 100 MG capsuleIndication s:Constipation, unspecified constipation type TAKE 1 CAPSULE BY MOUTH TWICE A DAY NEEDED 60 capsule 5 025 2024 Discontinued Acetaminophen Extra Strength 500 MG tabletIndications :Pain TAKE 1 TO 2 TABLETS BY MOUTH EVERY 6 HOURS NEEDED FOR PAIN 100 tablet 1 025 2024 Discontinued(R eorder (will not trigger notification to Pharmacy)) Linzess 72 MCG capsuleIndication s:History of IBS TAKE 1 CAPSULE BY MOUTH ONCE DAILY BEFORE BREAKFAST 30 capsule 1 025 2024 Discontinued Diclofenac Sodium 1 % gel APPLY 2 GRAMS TOPICALLY TO AFFECTED AREA(S) TWICE DAILY IN THE MORNING AND AT BEDTIME NEEDED FOR PAIN 100 g 3 025 2024 Discontinued(R eorder (will not trigger notification to Pharmacy)) QUEtiapine (SEROquel) 200 MG tabletIndications :Insomnia due to other mental disorder TAKE 1 TABLET BY MOUTH AT BEDTIME 14 tablet 025 2024 Discontinued Active Problems Problem Noted Date Diagnosed Date Advanced periodontitis 02/10/2025 Dental calculus 02/10/2025 Missing teeth, acquired 02/10/2025 Ill-fitting dentures 02/10/2025 Pseudogout involving multiple joints 06/23/2024 Lumbar degenerative disc disease 04/14/2024 Overview (04/14/2024): Xray Lumbar Spine October 2023: 1. There is a minimal lumbar levoscoliosis. 2. There is moderate degenerative disc disease at L4-L5 and L5-S1. 3. There is multi-level endplate arthropathy and facet arthropathy. 4. There are 3 adjacent right abdominal calcifications of uncertain etiology. These could be further evaluated with CT, if clinically indicated. Assessment & Plan (03/30/2025 1:49 PM EDT): -Good engagement and participation with Group Medical Visit model -Encouraged multifactorial approach to pain control including pharm and non- pharm modalities (including nutrition and routine physical activity as able) -Pill count and utox as expected Assessment & Plan (03/04/2025 9:42 AM EDT): -Good engagement and participation with Group Medical Visit model -Encouraged multifactorial approach to pain control including pharm and non- pharm modalities -Pill count and utox as expected Assessment & Plan (01/26/2025 8:36 PM EDT): -Good engagement and participation with Group Medical Visit model -Encouraged multifactorial approach to pain control including pharm and non- pharm modalities -Pill count as expected, pt unable to void. Assessment & Plan (12/03/2024 12:34 PM EDT): -Good engagement and participation with Group Medical Visit model -Encouraged multifactorial approach to pain control including pharm and non- pharm modalities -UTOX and Pill count as expected Assessment & Plan (09/29/2024 2:28 PM EDT): -Good engagement and participation with Group Medical Visit model -Encouraged multifactorial approach to pain control including pharm and non- pharm modalities -UTOX and Pill count as expected Assessment & Plan (09/03/2024 7:26 PM EST): -Good engagement and participation with Group Medical Visit model -Encouraged multifactorial approach to pain control including pharm and non- pharm modalities -UTOX and Pill count as expected Assessment & Plan (08/04/2024 6:19 PM EST): -Good engagement and participation with Group Medical Visit model -Encouraged multifactorial approach to pain control including pharm and non- pharm modalities Assessment & Plan (04/14/2024 8:09 PM EDT): -Good engagement and participation with Group Medical Visit model -Encouraged multifactorial approach to pain control including pharm and non- pharm modalities -UTOX and Pill count as expected Moderate dementia without be havioral disturbance, psychotic disturbance, mood disturbance, or anxiety (CMS/HCC) 03/24/2024 Severe dental caries 02/18/2024 [facility] current use of opiate analgesic 2023 Overview (03/04/2025): Medication: Tramadol 100mg Q8H PRN Indication: degenerative disc disease of cervical and lumbar spine, gout of multiple sites Last [employer]IC Agreement: 03/02/25 Additional considerations/risk factors: concurrent use of BZO (temazepam) & gabapentin Tier 3 (TANK [employer] MECH[employer]IC visits Q4-6 months), last eval September 2024 by PCP [facility] ASSISTANT TEACHING PROFESSOR Assessment & Plan (03/30/2025 1:49 PM EDT): Timeline: 05/12/24: Group - utox/pill count as expected 08/04/24: Group - utox as expected, pill count off by 2 09/01/24: Group - utox/pill count as expected 09/29/24: Group - utox/pill count as expected 12/01/24: Group - utox/pill count as expected 12/29/24: Group - utox as expected, unable to void 01/26/25: Group - utox as expected, unable to void 03/30/25: Group - utox/pill count as expected Assessment & Plan (01/26/2025 8:37 PM EDT): Timeline: 05/12/24: Group - utox/pill count as expected 08/04/24: Group - utox as expected, pill count off by 2 09/01/24: Group - utox/pill count as expected 09/29/24: Group - utox/pill count as expected 12/01/24: Group - utox/pill count as expected 12/29/24: Group - utox as expected, unable to void 01/26/25: Group - utox as expected, unable to void Assessment & Plan (12/31/2024 2:57 PM EDT): Timeline: 05/12/24: Group - utox/pill count as expected 08/04/24: Group - utox as expected, pill count off by 2 09/01/24: Group - utox/pill count as expected 09/29/24: Group - utox/pill count as expected 12/01/24: Group - utox/pill count as expected 12/29/24: Group - utox as expected, unable to void Assessment & Plan (12/03/2024 12:35 PM EDT): Timeline: 05/12/24: Group - utox/pill count as expected 08/04/24: Group - utox as expected, pill count off by 2 09/01/24: Group - utox/pill count as expected 09/29/24: Group - utox/pill count as expected 12/01/24: Group - utox/pill count as expected Assessment & Plan (09/29/2024 2:28 PM EDT): Timeline: 05/12/24: Group - utox/pill count as expected 08/04/24: Group - utox as expected, pill count off by 2 09/01/24: Group - utox/pill count as expected 09/29/24: Group - utox/pill count as exptected Assessment & Plan (09/03/2024 7:25 PM EST): Timeline: 05/12/24: Group - utox/pill count as expected 08/04/24: Group - utox as expected, pill count off by 2 09/01/24: Group - utox/pill count as expected Assessment & Plan (08/04/2024 6:18 PM EST): Timeline: 05/12/24: Group - utox/pill count as expected 08/04/24: Group - utox as expected, pill count off by 2 Assessment & Plan (05/12/2024 5:07 PM EDT): -Good engagement and participation with Group Medical Visit model -Encouraged multifactorial approach to pain control including pharm and non- pharm modalities -UTOX and Pill count as expected Timeline: 05/12/24 - Group visit: results WNL Assessment & Plan (02/11/2024 2:12 PM EDT): See above Periodontal disease 05/09/2023 Generalized gingival recession, severe Asthma 01/24/2023 Overview (01/24/2023): Symbicort Albuterol Singulair Chronic pain 01/24/2023 Overview (01/14/2024): Gabapentin 800mg Tramadol 50mg PRN, engaged in [employer] Program Assessment & Plan (02/11/2024 2:12 PM EDT): -UTOX and Pill count as expected -Good engagement and participation with Group Medical Visit model -Encouraged multifactorial approach to pain control including pharm and non- pharm modalities Assessment & Plan (01/14/2024 7:08 AM EDT): -UTOX and Pill count as expected -Good engagement and participation with Group Medical Visit model -Encouraged multifactorial approach to pain control including pharm and non- pharm modalities - followup in 1-3 months for next chronic pain group Assessment & Plan (12/20/2023 6:32 AM EDT): -UTOX and Pill count as expected -Good engagement and participation with Group Medical Visit model -Encouraged multifactorial approach to pain control including pharm and non- pharm modalities - followup in 1-3 months for next chronic pain group Assessment & Plan (11/12/2023 1:47 PM EDT): -Continues with Tramadol 100mg Q8H PRN. Reviewed med safety and SE. -UTOX and Pill count as expected -Good engagement and participation with Group Medical Visit model -Encouraged multifactorial approach to pain control including pharm and non- pharm modalities Assessment & Plan (10/15/2023 12:45 PM EDT): -Continues with Tramadol 50mg Q8H PRN. Reviewed med safety and SE. -UTOX and Pill count as expected -Good engagement and participation with Group Medical Visit model -Encouraged multifactorial approach to pain control including pharm and non- pharm modalities Assessment & Plan (09/17/2023 2:29 PM EST): -Continues with Tramadol 50mg Q8H PRN. Reviewed med safety and SE. -UTOX and Pill count as expected -Good engagement and participation with Group Medical Visit model - today was first visit. -Encouraged multifactorial approach to pain control including pharm and non- pharm modalities Elevated PSA 01/24/2023 Overview (01/24/2023): 11/2022-Referred to urology + family hx of prostate cancer Healthcare maintenance 01/24/2023 Overview (08/23/2023): C-Scope: Saw [facility] 01/2023 with note for repeat colonoscopy in 02/2023. Records not in chart will request PSA: 11/2022 5.33-referred to urology Mixed hyperlipidemia 01/24/2023 Overview (03/03/2023): Rosuvastatin 10mg daily 02/2023-ASCVD 19.6% Assessment & Plan (03/03/2023 12:13 PM EDT): Tolerating rosuvastatin 10mg Plan to repeat lipid panel at follow up and titrate up as indicated Tubular adenoma 07/06/2022 Gout of multiple sites 07/06/2022 Overview (06/22/2023): Colchicine PRN Sx improvement with prednisone Uric acid levels WNL 11/2022 Assessment & Plan (06/22/2023 12:21 PM EST): Will repeat uric acid levels and inflammatory markers and obtain xrays to evaluate for tophi presence If uric acid remains low will likely still start allopurinol given frequency of flares Sensorineural hearing loss, bilateral 08/06/2012 Benign prostatic hyperplasia with urinary obstru ction 07/24/2012 Overview (06/22/2023): Terazosin 5mg daily Polysubstance abuse 06/27/2012 Overview (01/24/2023): Sober x 12 years Hypertension 06/27/2012 Overview (08/23/2023): Valsartan 80mg daily - Did not tolerate olmesartan (dizziness) Maintenance: BMP: 11/2022 Lipid Panel: 11/2022 ASCVD Risk: 19.6% - Aerobic exercise to reduce BP. Initial goal of 30 min walk 3-5x/week. Increase as tolerated. - low-sodium diet (goal: <2g/day) and heart healthy diet such as DASH to reduce BP and prevent ASCVD. - Home BP monitoring 1-2 x day with goal of <140/90. - Seek immediate medical attention for chest pain, palpitations, SOB, syncope, or sudden changes in mental status. - Do not change or discontinue current prescriptions without first consulting health care provider Assessment & Plan (09/17/2023 2:30 PM EST): Elevated in office, although well controlled per last OV Continue current regimen, follow up with PCP if home readings elevated Assessment & Plan (08/23/2023 10:06 AM EST): Well controlled Continue current regimen Assessment & Plan (06/22/2023 12:18 PM EST): Well controlled Continue current regimen Assessment & Plan (03/03/2023 12:14 PM EDT): STOP olmesartan Restart valsartan 80mg daily Assessment & Plan (01/24/2023 8:38 AM EDT): Pt reports home BP well controlled Elevated in office today-did not take BP meds yet today Resolved Problems Problem Noted Date Diagnosed Date Resolved Date Fever 02/27/2024 04/14/2024 Acute conjunctivitis of right eye 08/22/2023 08/26/2023 Dental calculus 05/09/2023 03/24/2024 Missing teeth, acquired 05/09/2023 09/0 09/2023 Swelling of hand 07/06/2022 01/24/2023 COVID-19 07/06/2022 04/14/2024 Assessment & Plan (02/27/2024 10:26 AM EDT): Patient here with c/o fever, nausea and vomiting x 3 days. Recently attended a family gathering. Covid-19 Positive Pt febrile, but otherwise vital signs stable Plan Supportive Measures Paxlovid x 5 days Zofran Prn for Nausea, Tylenol for fever and body aches Pt was instructed to HOLD: Seroquel, Tramadol, Crestor, Colchicine , Sildenafil x 10 days Follow up if no improvement or worsening symptoms Chest wall pain 07/06/2022 01/24/2023 Assessment & Plan (07/06/2022 2:54 PM EST): He is hypersensitive with any palpation, poor air movement on his right base will send CXR and followup results Diffuse arthralgia 07/06/2022 Assessment & Plan (07/06/2022 2:53 PM EST): Diffuse joint pain, reports he thinks is related to gout. Hypersensitive to mild touch in any extremity, doesn't seem out of the realm that he may benefit of steroid, especially with his poor air movement. He does need to have a new PCP assigned to discuss his chronic issues. Constipation 07/06/2022 01/24/2023 Assessment & Plan (07/06/2022 2:54 PM EST): Chronic, not improving with conservative therapies, will benefit of GI referral for assessment. Recurrent falls 09/19/2012 01/24/2023 Abnormal MRI, cervical spine 09/02/2012 01/24/2023 Inguinal pain 06/27/2012 01/24/2023 Ear pain 06/27/2012 01/24/2023 Encounters * This document contains information received from the source organization and may not represent a complete record from that organization. Date Type Department Care Team Description 04/22/2025 10:00 AM EDT Office Visit [facility] [address] [place] [address] Rosalina Bocye DO Left elbow pain (Primary Dx); Acute gout of left hand, unspecified cause; Pain; Muscle spasm 04/22/2025 Telephone [facility] [address] [place] [address] Jeanne Marie FNP telephone call 04/22/2025 Travel 04/21/2025 Refill [facility] [address] [place] [address] Rosalina Boyce DO Gouty arthritis of right hand 03/31/2025 Refill [facility] [address] [place] [address] Jeanne Marie FNP Insomnia due to other mental disorder 03/31/2025 Refill [facility] [address] [facility] [place] [address] Jeanne Marie FNP Constipation, unspecified constipation type 03/30/2025 11:00 AM EDT Office Visit [facility] [address] [place] [address] Samantha Yang FNP Degeneration of intervertebral disc of lumbar region with discogenic back pain and lower extremity pain (Primary Dx); 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 03/30/2025 Travel 03/26/2025 1:00 PM EDT Telemedicine [facility] [address] [place] [address] Jeanne Marie FNP Dizziness (Primary Dx); Insomnia due to other mental disorder 03/26/2025 Travel 03/26/2025 Refill [facility] [address] [place] [address] Jeanne Marie FNP History of IBS 03/25/2025 Telephone [facility] [address] [place] [address] Jeanne Marie FNP chart prep 03/23/2025 Refill [facility] [address] [place] [address] Jeanne Marie FNP Gouty arthritis of right hand 03/18/2025 Refill [facility] [address] [place] [address] Jeanne Marie FNP Insomnia due to other mental disorder 03/11/2025 Refill [facility] [address] [place] [address] Jeanne Marie FNP Dry eye; Acute gout of knee, unspecified cause, unspecified laterality 03/09/2025 Refill [facility] [address] [place] [address] Jeanne Marie FNP 03/07/2025 Refill [facility] [address] [place] [address] Jeanne Marie FNP Shortness of breath 03/07/2025 Refill [facility] [address] [place] [address] Samantha Yang FNP Allergic conjunctivitis of both eyes; Shortness of breath 03/05/2025 9:00 AM EDT Office Visit [facility] [address] [place] [phone] Jeanne Marie FNP Dizziness (Primary Dx); Insomnia due to other mental disorder; Nodule of soft tissue; Moderate dementia without behavioral disturbance, psychotic disturbance, mood disturbance, or anxiety, unspecified dementia type ([facility]) 03/05/2025 Travel 03/04/[address] [address] Jeanne Marie FNP chart prep 03/04/[address] [address] Jeanne Marie FNP chart prep 03/04/[address] [address] Jeanne Marie FNP Moderate dementia without behavioral disturbance, psychotic disturbance, mood disturbance, or anxiety, unspecified dementia type ([facility]) 03/04/[address] [address] Jeanne Marei FNP Constipation, unspecified constipation type 03/02/2025 11:00 AM EDT Office Visit [address] [address] Samantha Yang FNP Degeneration of intervertebral disc of lumbar region with discogenic back pain and lower extremity pain (Primary Dx); [facility] current use of opiate analgesic 03/02/2025 Telephone [facility] [address] [place] [phone] Tobin Parsons DDS 03/02/2025 Telephone [facility] [address] [place] [phone] Ibis Overton RN T[employer] MECHANIC AGreement signed today 03/02/2025 Travel 03/01/[address] [address] Jeanne Marie FNP 02/26/2025 Patient Outreach [facility] [address] [place], [place] [id number] Jeanne Marie FNP Pre-visit Planning ([facility] unable to reach [facility]) 02/22/2025 Refill [facility] [address] [place] [address] Jeanne Marie CAMPAIGN ANALYST Gouty arthritis of right hand 02/17/2025 Refill [facility] [address] [place] [address] WhitakersJeanne CAMPAIGN ANALYST Other chronic pain 02/15/2025 Refill [facility] [address] [place] [address] Vidhya Infante MD Gouty arthritis of right hand 02/10/2025 8:00 AM EDT Office Visit [facility] [address] [place] [address] Kaitlin Seymour Advanced periodontitis (Primary Dx); Dental calculus; Missing teeth, acquired; Generalized gingival recession, severe; Ill-fitting dentures 02/10/2025 Refill [facility] [address] [place] [address] FrankJeanne cowan CAMPAIGN ANALYST Gastroesophageal reflux disease, unspecified whether esophagitis present 02/03/2025 Results Follow-Up [facility] [address] [place] [address] Jeanne Marie [facility] Mr Brain w/ and w/o Contrast 02/03/2025 Refill [facility] MED[facility] [address] [place] [address] FrankJeanne [facility] Shortness of breath; Constipation, unspecified constipation type 01/28/2025 1:00 PM EDT Office Visit [facility] OPTOMETRY [address] [place] [address] Baron, Jossie, OD Meibomian gland disease, unspecified laterality (Primary Dx); Age-related nuclear cataract of both eyes; Presbyopia 01/28/2025 Travel 01/26/2025 11:00 AM EDT Office Visit [facility] [address] [place] [address] Samantha Yang, MICHAEL Degeneration of intervertebral disc of lumbar region with discogenic back pain and lower extremity pain (Primary Dx); Dizziness; [facility] current use of opiate analgesic 01/26/2025 Travel 01/25/2025 Telephone [facility] [address] [place] [address] WhitakersJeanne [facility] 01/25/2025 Results Follow-Up [facility] [address] [place] [address] [facility]ne [facility] Comprehensive Metabolic Panel, CBC auto differential, TSH W/Reflex to FT4 01/21/2025 Orders Only [facility] [address] [place] [address] Vidhya Infante MD Gouty arthritis of right hand 01/21/2025 Telephone [facility] [address] [place] [address] [facility] telephone call 01/21/[address] [address] WhitakersJeanne [facility] TC to [facility] 01/20/2025 Orders Only [facility] [address] [place] [address] [facility] Dizziness (Primary Dx); Tinnitus of both ears from Last 3 Months Immunizations Immunization Administration Dates Next Due Hep A, Adult 06/02/2019,08/01/2012 Hep B, adult 06/02/2019,09/02/2012,08/01/2012 Influenza High-dose Quadriva lent Preservative Free 06/07/2023,04/12/2022,05/10/2020 Influenza injectable quadriv alent preservative free 05/28/2018 Influenza, High Dose Seasona l, Preservative Free 06/17/2024 Pfizer Covid-19 Vaccine 12+ 06/17/2024,1 08/07/2022,04/19/2021,2020,09/20/2020 Pfizer Covid-19 Vaccine 12+ Bivalent 07/18/2022 Pneumococcal Conjugate PCV 13 05/10/2020 Pneumococcal Conjugate PCV 20 04/12/2022 Tdap 06/05/2022,08/03/2020 Zoster, Recombinant 07/06/2020,05/04/2020 Family History Medical History Relation Name Comments Prostate cancer Father Breast cancer Sister Diabetes type II Sister Relation Name Status Comments Father Sister Social History Tobacco Use Types Packs/Day Years Used Date Smoking Tobacco: Former Cigarettes Passive Smoke Exposure: Past Smokeless Tobacco: Never Tobacco Cessation:Counseling Given: Not Answered Alcohol Use Standard Drinks/Week Comments Never 0 [...] Orientation Straight 05/21/2022 10 :22 AM EDT Last Filed Vital Signs Vital Sign Reading Time Taken Comments Blood Pressure 159/85 04/22/2025 9:40 AM EDT Pulse 102 04/22/2025 9:40 AM EDT Temperature 36.4 C (97.5 F) 04/22/2025 9:40 AM EDT Respiratory Rate 18 04/22/2025 9:40 AM EDT Oxygen Saturation 98% 04/22/2025 9:40 AM EDT Inhaled Oxygen Concentration - - Weight 103 kg (226 lb 6.4 oz) 04/22/2025 9:40 AM EDT Height 180.3 cm (5' 11 ) 03/05/2025 9:21 AM EDT Body Mass Index 31.58 03/05/2025 9:21 AM EDT Plan of Treatment Upcoming Encounters Date Type Department Care Team (Late st Contact Info) Description 05/04/2025 11:00 AM EDT Office Visit [facility] MED[facility] [address] [place] [address] 08/24/2025 8:00 AM EST Office Visit [facility] ADULT DENTAL [address] [place], [place] [phone] LionKaitlin [address] [place] [address] Health Maintenance Due Date Last Done Comments CT Colonography 1955 FIT DNA/Cologuard 1955 FIT 1955 FOBT 1955 Sigmoidoscopy 1955 RSV Patients and Patients Aged 60 years or older (1 - Risk 60-74 years 1-dose series) 2015 COVID-19 Vaccine ( season) 2025 06/17/2024, 06/07/2023, 07/18/2022, Additional history exists Influenza Vaccine (#1) 2025 , 06/07/2023, 04/12/2022, Additional history exists Dental Oral Exam 08/14/2025 02/10/2025, 09/2023, 04/26/2023, Additional history exists Dental Prophylaxis 08/14/2025 02/10/2025, 0 08/11/2024, 01/09/2024, Additional history exists Depression Monitoring 09/05/2025 03/05/2025, 025 Alcohol/Substance Use Screening 01/18/2026 01/18/2025 SDOH Screening 01/18/2026 01/18/2025 Dental X-Ray: Bitewings 02/11/2026 02/11/20 25, 01/09/2024, 04/26/2023, Additional history exists Tobacco Screening 04/22/2026 04/22/2025 Dental X-Ray: Full Mouth 02/12/2028 025, 06/27/2021, 06/20/2018 Colonoscopy 03/06/2028 03/06/2023 Colorectal Cancer Screening 03/06/2028 Lipid Panel 01/18/2030 01/18/2025, 0503/2023, 10/27/2021, Additional history exists DTaP/Tdap/Td Vaccines (3 - Td or Tdap) 06/05/2032 06/05/2022, 08/03/2020 Hepatitis A Vaccines Aged Out 06/02/2019, 08/01/19 13 No longer eligible based on patient's age to complete this topic Hepatitis B Vaccines Completed 06/02/2019, 09/02/2012, 08/01/2012 Zoster Vaccines Completed 07/06/2020, 05/04/2020 Pneumococcal Vaccine: 50+ Years Completed 04/12/2022, 05/10/2020 Hepatitis C Screening Completed 10/22/2023 HIB Vaccines Aged Out No longer eligi [...] patient's age to complete this topic Meningococcal Vaccine Aged Out No farzaneh jay eligible based on patient's age to complete this topic RSV under 20 months Aged Out No longe r eligible based on patient's age to complete this topic Rotavirus Vaccines Aged Out No longer eligible based on patient's age to complete this topic Procedures Procedure Name Priority Date/Time Associated Diagnosis Comments XR ELBOW 3+ VIEWS LEFT Routine 04/22/2025 10:55 AM EDT Left elbow pain POCT LAKISHA-14 URINE DRUG SCREEN Routine 03/30/2025 11:17 AM EDT 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 Degeneration of intervertebral disc of lumbar region with discogenic back pain and lower extremity pain POCT LAKISHA-14 URINE DRUG SCREEN Routine 03/02/2025 11:45 AM EDT [facility] current use of opiate analgesic PERIODIC ORAL EVALUATION - ESTABLISHED PATIENT Routine 02/10/2025 8:00 AM EDT ORAL HYGIENE INSTRUCTIONS Routine 02/10/2025 8:00 AM EDT Advanced periodontitis Dental calculus Missing teeth, acquired Generalized gingival recession, severe CASE PRESENTATION, DETAILED AND EXTENSIVE TREATMENT PLANNING Routine 02/10/2025 8:00 AM EDT Advanced periodontitis Dental calculus Missing teeth, acquired Generalized gingival recession, severe PROPHYLAXIS - ADULT Routine 02/10/2025 8 :00 AM EDT Advanced periodontitis Dental calculus Missing teeth, acquired Generalized gingival recession, severe INTRAORAL - COMPLETE SERIES OF RADIOGRAPHIC IMAGES Routine 02/10/2025 8:00 AM EDT Advanced periodontitis Dental calculus Missing teeth, acquired Generalized gingival recession, severe 2,3,14,15 PARTIAL DENTURE - RESIN Routine 02/10/2025 12:00 AM EDT MR BRAIN W AND WO CONTRAST Urgent 02/02/2025 10:38 AM EDT Dizziness Tinnitus of both ears LIPID PANEL, STANDARD Routine 01/18/2025 4:02 PM EDT Essential hypertension HEPATITIS PANEL, GENERAL Routine 10/22/2023 12:35 PM EDT HM COLONOSCOPY Routine 03/06/2023 from Last 3 Months or Most Recently Relevant to Health Maintenance Results * XR Elbow 3+ Views Left (04/22/2025 10:55 AM EDT) Anatomical Region Laterality Modality Upper Extremities, Elbow Left Radiogr aphic Imaging 04/22/2025 10:5 5 AM EDT Narrative 04/22/2025 11:08 AM EDT [address] [address] XRay Report Signed Patient: Chetan Farnsworth MR#: [id number] 91 : 1955 Acct:[id number] Age/Sex: 70 / M ADM Date: 04/22/25 [facility]: Rosalina Boyce DO Ordering Physician: Rosalina Boyce DO Date of Service: 04/22/25 Procedure(s): XR elbow LT min 3V Accession Number(s): [id number] cc: Rosalina Boyce DO Reason for Exam: [...] Kevin Cormier MD 04/22/2025 11:05 AM EDT Dictated By: Kevin Cormier MD Signed By: <Electronically signed by Kevin Cormier MD in OV> 04/22/25 1105 DD/ 1055 TD/TT: 04/22/25 [address] Gill Box Tender: Procedure Note Donotuseinterpreter, Image - 04/22/2025 [place] [address] XRay Report Signed Patient: Chetan FarnsworthMR#: [id number] [birth year] : 5Acct:[id number] Age/Sex: 70 / MADM Date: 04/22/25 Loc: [facility] Attending Dr: Rosalina Boyce DO Ordering Physician: Rosalina Boyce DO Date of Service: 04/22/25 Procedure(s): XR elbow LT min 3V Accession Number(s): [id number] cc: Rosalina Boyce DO Reason for Exam: [...] Kevin Cormier MD 04/22/2025 11:05 AM EDT Dictated By: Kevin Cormier MD Signed By: <Electronically signed by Kevin Cormier MD in OV> 04/22/25 1105 DD/ 1055 TD/TT: 04/22/25 1100 Gill Box Tender: us Rosalina Boyce DO IMG XR PROCEDURES Edited Res ult - Final * (ABNORMAL) POCT LAKISHA-14 Urine Drug Screen (03/30/2025 11:17 AM EDT) Only the most recent of2 resultswithin the time period is included. THC Positive(A) Negative Cocaine Screen, Urine Negative Negative Opiate Screen, Urine Negative Negative Methamphetamine Screen Urine Negative Negative Amphetamine Screen, Urine Negative Negative Benzodiazepines Screen, Urine Positive(A) Negative Barbiturate Screen, Urine Negative Negative Methadone Screen, Urine Negative Negative Buprenophine Screen, Urine Negative Negative TCA, Urine Negative Negative MDMA Urine Negative Negative ng/mL Oxycodone Screen, Urine Negative Negative Phencyclidine (PCP), Urine Negative Negative Propoxyphene, Urine Negative Negative Fentanyl, Urine Negative Negative Urine Urine specimen obtained by clean catch procedure / Unknown 03/30/2025 11:17 AM EDT Narrative Leslie Pepe RN - 03/30/2025 11:17 AM EDT .UTOX cup Lot#[id number] Exp. 04/27/26 Internal Pass Control us Samantha Yang CAMPAIGN ANALYST POINT OF CARE TEST ENTER/EDIT ORDERABLES Final Result * Mr Brain w/ and w/o Contrast (02/02/2025 10:38 AM EDT) Anatomical Region Laterality Modality Brain Magnetic Resonan ce 02/02/2025 10:3 8 AM EDT Narrative 02/02/2025 1:04 PM EDT [address] [address] Magnetic Resonance Report Signed Patient: Chetan Farnsworth MR#: [id number] 91 : 1955 Acct:[id number] Age/Sex: 69 / M ADM Date: 02/02/25 Loc: HO.MRI Attending Dr: Jeanne RODRIGUEZ Ordering Physician: Jeanne Marie Date of Service: 02/02/25 Procedure(s): MR head/brain wo/w con Accession Number(s): [id number] cc: Jeanne Marie EXAMINATION: MR BRAIN/IACS WITHOUT AND WITH CONTRAST CLINICAL INFORMATION: Dizziness, tinnitus, dizziness. Old head injury. 69-year-old male. COMPARISON: MRI of brain 10/10/2023, 05/04/2019. TECHNIQUE: Multiplanar, multisequence MRI of the brain and IACs was obtained before and after the intravenous administration of 10 mL Gadavist. Examination was performed on a 1.5 Dana Siemens high-field unit. FINDINGS: There is no diffusion restriction. There is no intracranial hemorrhage, acute infarction, mass effect, or edema. Ventricles, sulci, and cisterns are diffusely somewhat prominent, in keeping with mildly age advanced cerebral and cerebellar volume loss. No shift of midline. There are a few scattered punctate and minimally confluent foci of white matter T2 hyperintensity in the periventricular, subcortical, and hemispheric deep white matter. These foci are nonspecific but statistically most likely relate to small vessel ischemic changes. Redemonstration of an arachnoid cyst in the left middle cranial fossa measuring up to 1.0 cm diameter, unchanged. There is normal CSF signal within the IACs, CP angle cisterns, prepontine cistern, and labyrinthine structures. The 7th and 8th cranial nerves are normal in course and caliber. There is no abnormal cranial nerve or other enhancement. Midline structures appear normally formed. Partial empty sella. Posterior fossa structures appear normal. Cerebellar tonsils are appropriately located. Major flow voids are preserved within the skull base. The globes and orbital contents demonstrate no abnormalities. Paranasal sinuses are clear bilaterally. Nasal septum is midline without spur. The mastoids and tympanic cavities are normally aerated. Extracranial soft tissues demonstrate no abnormalities. No suspicious bone marrow changes are evident. Atlantoaxial joint is normal. MR/MR head/brain wo/w con IMPRESSION: 1. No evidence of intracranial hemorrhage, acute infarction, mass effect, edema, or abnormal contrast enhancement. 2. Mildly age advanced cerebral and cerebellar volume loss. 3. Mild changes of small vessel ischemia, similar to prior exams. 4. Stable small arachnoid cyst in the left middle cranial fossa. 5. No abnormality of the IACs, 7th or 8th cranial nerves. Electronically signed by: Robin Mejia MD 02/02/2025 01:01 PM EDT Dictated By: Robin Mejia MD Signed By: <Electronically signed by Robin Mejia MD in OV> 02/02/25 1301 DD/ 1038 TD/TT: 02/02/25 1210 Gill Box Tender: Procedure Note Donotuseinterpreter, Image - 02/02/2025 [place] [address] Magnetic Resonance Report Signed Patient: Chetan FarnsworthMR#: [id number] [birth year] : 5Acct:[id number] Age/Sex: 69 / MADM Date: 02/02/25 Loc: HO.MRI Attending Dr: Jeanne RODRIGUEZ Ordering Physician: Jeanne Marie Date of Service: 02/02/25 Procedure(s): MR head/brain wo/w con Accession Number(s): [id number] cc: Jeanne Marie EXAMINATION: MR BRAIN/IACS WITHOUT AND WITH CONTRAST CLINICAL INFORMATION: Dizziness, tinnitus, dizziness. Old head injury. 69-year-old male. COMPARISON: MRI of brain 10/10/2023, 05/04/2019. TECHNIQUE: Multiplanar, multisequence MRI of the brain and IACs was obtained before and after the intravenous administration of 10 mL Gadavist. Examination was performed on a 1.5 Dana Siemens high-field unit. FINDINGS: There is no diffusion restriction. There is no intracranial hemorrhage, acute infarction, mass effect, or edema. Ventricles, sulci, and cisterns are diffusely somewhat prominent, in keeping with mildly age advanced cerebral and cerebellar volume loss. No shift of midline. There are a few scattered punctate and minimally confluent foci of white matter T2 hyperintensity in the periventricular, subcortical, and hemispheric deep white matter. These foci are nonspecific but statistically most likely relate to small vessel ischemic changes. Redemonstration of an arachnoid cyst in the left middle cranial fossa measuring up to 1.0 cm diameter, unchanged. There is normal CSF signal within the IACs, CP angle cisterns, prepontine cistern, and labyrinthine structures. The 7th and 8th cranial nerves are normal in course and caliber. There is no abnormal cranial nerve or other enhancement. Midline structures appear normally formed. Partial empty sella. Posterior fossa structures appear normal. Cerebellar tonsils are appropriately located. Major flow voids are preserved within the skull base. The globes and orbital contents demonstrate no abnormalities. Paranasal sinuses are clear bilaterally. Nasal septum is midline without spur. The mastoids and tympanic cavities are normally aerated. Extracranial soft tissues demonstrate no abnormalities. No suspicious bone marrow changes are evident. Atlantoaxial joint is normal. MR/MR head/brain wo/w con IMPRESSION: 1. No evidence of intracranial hemorrhage, acute infarction, mass effect, edema, or abnormal contrast enhancement. 2. Mildly age advanced cerebral and cerebellar volume loss. 3. Mild changes of small vessel ischemia, similar to prior exams. 4. Stable small arachnoid cyst in the left middle cranial fossa. 5. No abnormality of the IACs, 7th or 8th cranial nerves. Electronically signed by: Robin Mejia MD 02/02/2025 01:01 PM EDT Dictated By: Robin Mejia MD Signed By: <Electronically signed by Robin Mejia MD in OV> 02/02/25 1301 DD/ 1038 TD/TT: 02/02/25 1210 Gill Box Tender: [facility] IMG MRI PROCEDURES Final Resu lt * Lipid Panel, Standard (01/18/2025 4:02 PM EDT) Triglycerides 70 <150 mg/dL [facility] Comment:Desirable Triglyceri de: less than 150 mg/dLBorderline High Triglyceride 150-199 mg/dLHigh Triglyceride: 200-499 mg/dLVery High Triglyceride: greater than or equal to 5OO mg/dL Cholesterol 159 <200 mg/dL [facility] Comment:Desirable Cholestero l: less than 200 mg/dLBorderline High Cholesterol: 200-239 mg/dLHigh Cholesterol: greater than 239 mg/dL LDL Cholesterol Calculated 84 <100 mg/dL [facility] Comment:Desirable LDL: less than 100 mg/dLNear Optimal/Above Optimal LDL: 110- 129 mg/dLBorderline High LDL: 130-159 mg/dLHigh LDL: 160-189 mg/dLVery High LDL: greater than or equal to 190 mg/dL HDL Cholesterol 61 >40 mg/dL [facility] Comment:Desirable HDL: great er than 40 mg/dL Note: This HDL assay may give artificially low results in patients with liver disease. Blood Venous blood specimen / Unknown 01/18/2025 4:02 PM EDT 01/18/2025 5:49 PM EDT [facility] LAB BLOOD ORDERABLES Final Re sult [facility] [address] [place] [phone] * Hepatitis Panel, General (10/22/2023 12:35 PM EDT) Hepatitis A IgM Nonreactive Nonreactive [facility] Comment:IgM antibodies to ISABEL V not detected; does not exclude earlyacute or recovered HAV infection. ~Hepatitis B Surface Antibody REACTIVE Nonreactive [facility] Comment:REACTIVE: > 11.99 mI U/mL Hepatitis B Core Antibody Nonreactive Nonreactive [facility] Hepatitis C Antibody Nonreactive Nonreactive [facility] Comment:Antibodies to HCV no t detected; does not exclude early acuteHCV infection. Hepatitis B Surface Ag Negative Negative [facility] 10/22/2023 12:3 5 PM EDT 10/22/2023 12:35 PM EDT us Generic External Data Provider LAB BLOOD ORDERAB LES Final Result Performing Organization Address City/State/[facility] Co de Phone Number [facility] [address] [place] [phone] [phone] * (ABNORMAL) Colonoscopy (03/06/2023) Colonoscopy Abnormal( A) Normal Comment:Repeat in 5 years Historical Provider HEALTH MAINTENANCE Final Result from Last 3 Months or Most Recently Relevant to Health Maintenance Insurance [facility] DUAL COMPLETE [facility] STANDARD DENTAL - [facility] Care Teams Government Service Executive Relationship Specialty Start Date End Date Jeanne Marie FNP [address] [place] [phone] PCP - General Family Medicine 07/14/24
--- OUTSIDE RECORDS SUMMARY | 2025-04-22 11:40 | XMS_ITS | Encounter Summary ---
Author Organization [employer] Address [address] [facility] [address]t [place] [address] Care Team Providers Care Music Composition Teacher Name Role Phone [place] [facility] Primary Care Provider [phone] Reason for Visit * Reason Comments Med Refill Encounter Details Date Type Department Care Team ([facility] st Contact Info) Description 04/21/2024 Refill [facility] [address] [place] [address] [facility] [address] [place] [address] Diffuse arthralgia Social History Tobacco Use Types [...] 05/04/2025 11:00 AM EDT Office Visit [facility] MEDICINE [address] [place] [address] 08/24/2025 8:00 AM EST Office Visit [facility] ADULT DENTAL [address] [place] [address] Lion, Kaitlin [address] [place] [address] documented as of this encounter Visit Diagnoses Diagnosis Diffuse arthralgia documented in this encounter Additional Health Concerns Assessment Noted Time PHQ-9 Depression Total Score: 0 03/20/20 9:02 AM EDT documented as of this encounter Care Teams Music Composition Teacher Relationship Specialty Start Date End Date Jeanne Marie FNP [address] [place] [address] PCP - General Family Medicine 07/14/24 documented as of this encounter
--- OUTSIDE RECORDS SUMMARY | 2025-04-22 11:40 | XMS_ITS | Encounter Summary ---
Author Organization [employer] Address [address] [facility] 7t [place] [address] Care Team Providers Care Manager Country Name Role Phone [facility] Primary Care Provider [phone] Reason for Visit * Reason Onset Date Comments telephone call 04/22/2025 Encounter Details Date Type Department Care Team ([facility] st Contact Info) Description 04/22/2025 Telephone [facility] MED[facility] [address] [place] [address] [facility] [address] [place] [address] telephone call Social History Tobacco Use Types Packs/Day Years [...] is your housing situation today? I have ofx quinones 01/18/[address] you [...] AM EDT documented as of this encounter Miscellaneous Notes * Telephone Encounter - Ibis Overton RN - 04/22/2025 10:50 AM EDT Tramadol ruest was forwarded to PCP this morning. Refill due 04/23/25. * Telephone Encounter - Betty Boston - 04/22/2025 10:25 AM EDT Pt walked in requesting a refill for tramadol. documented in this encounter Plan of Treatment Upcoming Encounters Date Type Department Care Team (Late st Contact Info) Description 05/04/2025 11:00 AM EDT Office Visit [facility] MED[facility] [address] [place], [place] [phone] 08/24/2025 8:00 AM EST Office Visit [facility] ADULT DENTAL [address] [place] [address] Lion, Kaitlin [address] [place] [address] documented as of this encounter Visit Diagnoses Not on filedocumented in this encounter Additional Health Concerns Assessment Noted Time PHQ-9 Depression Total Score: 14 025 9:23 AM EDT documented as of this encounter Care Teams Manager Country Relationship Specialty Start Date End Date Jeanne Marie FNP [address] [place] [phone] PCP - General Family Medicine 07/14/24 documented as of this encounter
--- OUTSIDE RECORDS SUMMARY | 2025-04-22 11:40 | XMS_ITS | Encounter Summary ---
Author Organization [employer] Address [address] [facility] 7t [place] [address] Care Team Providers Care Center Machine Operator Name Role Phone [place] [facility] Primary Care Provider [phone] Reason for Visit * Reason Comments Med Refill Encounter Details Date Type Department Care Team ([facility] st Contact Info) Description 05/11/2024 Refill [facility] MEDICINE [address] [place] [address] [facility] [address] [place] [address] Gouty arthritis of right hand Social History [...] Description 05/04/2025 11:00 AM EDT Office Visit [facility] MEDICINE [address] [place] [address] 08/24/2025 8:00 AM EST Office Visit [facility] ADULT DENTAL [address] [place] [address] Lion, Kaitlin [address] [place] [address] documented as of this encounter Visit Diagnoses Diagnosis Gouty arthritis of right hand documented in this encounter Additional Health Concerns Assessment Noted Time PHQ-9 Depression Total Score: 0 03/20/20 9:02 AM EDT documented as of this encounter Care Teams Center Machine Operator Relationship Specialty Start Date End Date Jeanne Marie FNP [address] [place] [address] PCP - General Family Medicine 07/14/24 documented as of this encounter
--- OUTSIDE RECORDS SUMMARY | 2025-04-22 11:40 | XMS_ITS | Encounter Summary ---
Author Organization [employer] Address [address] [facility] 7t [place] [address] Care Team Providers Care Buffet Attendant Name Role Phone [place] [facility] Primary Care Provider [phone] Reason for Visit * Reason Comments Med Refill Encounter Details Date Type Department Care Team ([facility] st Contact Info) Description 04/21/2024 Refill [facility] MED[facility]INE [address] [place] [address] [place] [facility] [address] [place] [address] Primary hypertension; Hypertension, unspecified type Social History Tobacco Use Types Packs/Day [...] Description 05/04/2025 11:00 AM EDT Office Visit [facility] MED[facility] [address] [place] [address] 08/24/2025 8:00 AM EST Office Visit [facility] ADULT DENTAL [address] [place] [address] Lion, Kaitlin [address] [place] [address] documented as of this encounter Visit Diagnoses Diagnosis Primary hypertension Unspecified essential hypertension Hypertension, unspecified type documented in this encounter Additional Health Concerns Assessment Noted Time PHQ-9 Depression Total Score: 0 03/20/20 9:02 AM EDT documented as of this encounter Care Teams Buffet Attendant Relationship Specialty Start Date End Date Jeanne Marie FNP [address] [place] [address] PCP - General Family Medicine 07/14/24 documented as of this encounter
--- OUTSIDE RECORDS SUMMARY | 2025-04-22 11:40 | XMS_ITS | Clinical Summary ---
Author Organization [employer] [facility] ity Address [address] [place] [address] Care Team Providers Care Wood Pole Treater Name Role Phone Unavailable Primary Care Provider [...] 2005 Zoster Vaccines (1 of 2) 2005 Depression Screening 07/22/2024 COVID-19 Vaccine (1 - 2023-2 5 season) 2025 Influenza Vaccine (#1) 2025 RSV Immunization Adult [...]
--- OUTSIDE RECORDS SUMMARY | 2025-04-22 11:40 | XMS_ITS | Encounter Summary ---
Author Organization [employer] Address [address] [facility] [address] 7[address] [place] [address] Care Team Providers Care Customs Guard Name Role Phone Jeanne Marie SHERIFFS Primary Care Provider [phone] Reason for Visit * Reason Comments Med Refill Encounter Details Date Type Department Care Team (Late st Contact Info) Description 05/13/2023 Refill [facility] MED[facility]INE [address] [place] [address] Leatha Savage FNP Dry eye Social History Tobacco Use Types Packs/Day Years [...] Description 05/04/2025 11:00 AM EDT Office Visit [facility] [address] [place] [address] 08/24/2025 8:00 AM EST Office Visit [facility] ADULT DENTAL [address] [place] [address] LionKaitiln [address] [place] [address] documented as of this encounter Visit Diagnoses Diagnosis Dry eye documented in this encounter Additional Health Concerns Assessment Noted Time PHQ-9 Depression Total Score: 0 01/15/20 23 11:22 AM EDT documented as of this encounter Care Teams Customs Guard Relationship Specialty Start Date End Date Jeanne Marie FNP [address] [place] [address] PCP - General Family Medicine 07/14/24 documented as of this encounter
--- OUTSIDE RECORDS SUMMARY | 2025-04-22 11:40 | XMS_ITS ---
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) use of opiate analgesic Active 2024-04-29 N/A Medication: Tramadol 100mg Q8H PRNIndication: degenerative disc disease of cervical and lumbar spine, gout of multiple sitesLast SUPERVISOR CURED [employer]ATS Agreement: 04/14/24Additional considerations/risk factors: concurrent use of BZO (temazepam) & gabapentin Chronic pain Active 2024-04-29 N/A Gabapentin 8 00mgTramadol 50mg PRN, engaged in [employer]PER[employer]OR [employer] Program Elevated PSA Active 2024-04-29 N/A 11/2022-Referred to urology + family hx of prostate cancer History of substance abuse Active 2024-04-29 N/A Sober x 12 years MDD (major depressive disorder), recurrent episode, mild Active 2022-10-17 N/A stableseroquel, temazepamfollows with psychPSYCH CONTINGENCY PLANLast updated: 04/30/2024Member to call for the following symptoms: Agitation/ Anxiety/ InsomniaPlanned intervention: Transfer member to [address] [place] [address]/ Hydroxyzine (Vistaril) 25mg PO q6h PRN anxiety [...] sputum production. 4. Schedule f/u with primary WHITE WASHER in 1-2 days. Diffuse arthralgia Active 2022-10-17 [...] 2024-04-29 N/A C- Scope: [place] [facility] [place]2023 with note for repeat colonoscopy [...] (do not use for phone, instead use 86166-46) [facility]2022 Major depressive disorder, recurrent, mildGout, unspecifiedUnspecified asthma, uncomplicatedPain in unspecified jointEssential (primary) hypertensionOther amnesiaBody mass index (bmi) 33.0-33.9, adult New patient,40-59min; chronic exacerbation, 2 stable chronic or 1 acute illness add add modifier 95 for video (do not use for phone, instead use 82814-69) [facility] 10/17/2022 New patient,40-59min; chronic exacerbation, 2 stable chronic or 1 acute illness add add modifier 95 for video (do not use for phone, instead use 24814-82) [facility] 10/17/2022 New patient,40-59min; chronic exacerbation, 2 stable chronic or 1 acute illness add add modifier 95 for video (do not use for phone, instead use 80747-17) [facility] 10/17/2022 New patient,40-59min; chronic exacerbation, 2 stable chronic or 1 acute illness add add modifier 95 for video (do not use for phone, instead use 26197-95) [facility] 10/17/2022 New patient,40-59min; chronic exacerbation, 2 stable chronic or 1 acute illness add add modifier 95 for video (do not use for phone, instead use 79904-81) [facility] 10[place]17/2022 New patient,40-59min; chronic exacerbation, 2 stable chronic or 1 acute illness add add modifier 95 for video (do not use for phone, instead use 71851-13) [facility] 10/17/2022 New patient,40-59min; chronic exacerbation, 2 stable chronic or 1 acute illness add add modifier 95 for video (do not use for phone, instead use 55054-58) [facility] 10/17/2022 New patient,40-59min; chronic exacerbation, 2 stable chronic or 1 acute illness add add modifier 95 for video (do not use for phone, instead use 40092-76) [facility] 10/17/2022 Estab. patient 30-39min; chronic exacerbation, 2 stable chronic or 1 acute illness add add modifier 95 for video, (do not use for phone, instead use 42295-56) [facility] 04/30/2024 Major depressive disorder, recurrent, mildMorbid (severe) [...] (do not use for phone, instead use 21864-29) [facility] 04/30/2024 Estab. patient 30-39min; chronic exacerbation, 2 stable chronic or 1 acute illness add add modifier 95 for video, (do not use for phone, instead use 92033-22) [facility] [place] 04/30/2024 Estab. patient 30-39min; chronic exacerbation, 2 stable chronic or 1 acute illness add add modifier 95 for video, (do not use for phone, instead use 98683-97) [facility] 04/30/2024 Estab. patient 30-39min; chronic exacerbation, 2 stable chronic or 1 acute illness add add modifier 95 for video, (do not use for phone, instead use 17283-65) [facility] 04/30/2024 Estab. patient 30-39min; chronic exacerbation, 2 stable chronic or 1 acute illness add add modifier 95 for video, (do not use for phone, instead use 59842-05) [facility] [place] 04/30/2024 Estab. patient 30-39min; chronic exacerbation, 2 stable chronic or 1 acute illness add add modifier 95 for video, (do not use for phone, instead use 14005-87) [facility] 04/30/2024 Estab. patient 30-39min; chronic exacerbation, 2 stable chronic or 1 acute illness add add modifier 95 for video, (do not use for phone, instead use 38102-90) [facility] [place] 04/30/2024 Vital Signs Date of Collection Vitals [...] tive Time Current Smoking Status Former smoker 2 Sex Male History of Procedures Procedures Service Procedure code Service date Servicing provider Phone# New patient,40-59min; chronic exacerbation, 2 stable chronic or 1 acute illness add add modifier 95 for video (do not use for phone, instead use 96190-25) [id number] 2022-10-17 No Data Available No Data Availa [...] (do not use for phone, instead use 67717-91) [id number] 2024-04-30 No Data Available No Data Availa [...] Agitation/ Anxiety/ InsomniaPlanned intervention: Transfer member to [address] [place] [address]/ Hydroxyzine (Vistaril) 25mg PO q6h PRN anxietyGoutstablecholchicine, [...] sputum production. 4. Schedule f/u with primary WHITE WASHER in 1-2 days. Diffuse arthralgiastablept reported he [...] and lumbar spine, gout of multiple sitesLast SUPERVISOR [employer] Agreement: 04/14/24Additional considerations/risk factors: concurrent use of BZO (temazepam) & gabapentinGeneralized gingival recession, severeSees dentist regularlyChronic painGabapentin 800mgTramadol 50mg PRN, engaged in SUPERVISOR [employer] ProgramElevated PSA 11/2022-[facility]erred [facility]rology + [facility] hx [facility] [place] with note for repeat colonoscopy [...] CBContinue to see PCP. [facility] [...] specialists as directed. 2024-04-30 Ordered 4 prong [employer] Health Concerns Date Concern 2024-04-30 Visit complete using audio and video. Patient/Guardian agreed to visit via telehealth. Today, patient has chief complaint of: follow up care and comprehensive review.Reviewed Allergies, Medications, Active Medical conditions, past medical/surgical history, Social history. 2024-04-30 Most recent hospital stay(s) or ER visit(s) and precipitating factors: 07/27/23 [facility] Foreign body in eyes 2024-04-30 Open HEDIS Measure r alesha: completed 2024-04-30 Need a cane 4 prong
--- OUTSIDE RECORDS SUMMARY | 2025-04-22 11:40 | XMS_ITS | Encounter Summary ---
Author Organization [employer] Address [address] [facility] 7t [place] [address] Care Team Providers Care Cognos Report Developer Name Role Phone [place] [facility] Primary Care Provider Reason for Visit * Reason Comments Med Refill Encounter Details Date Type Department Care Team (Late Contact Info) Description 12/14/2022 Refill [facility] MEDICINE [address] [place] [address] [facility] [address] [place] [address] Gouty arthritis of right hand Social History Tobacco Use Types Packs/Day Years Used Date Smoking Tobacco: Former Cigarettes Smokeless Tobacco: Never Alcohol Use Standard Drinks/Week Comments Never 0 (1 standard drink = 0.6 oz pur e alcohol) PHQ-2 Answer Date Recorded Patient Health Questionnaire-2 Score 0 12/07/2022 Sex and Gender Information Value Date Recorded Sex Assigned at Male 05/21/2022 10:22 AM EDT Legal Sex Male 10:22 AM EDT Gender Identity Male 05/21/2022 10:22 AM EDT Sexual Orientation Straight 05/21/2022 10 :22 AM EDT COVID-19 Exposure Response Date Recorded In the last 10 days, have yo u been in contact with someone who was confirmed or suspected to have Coronavirus/COVID-19? No / Unsure 12/11/2022 9:39 AM EDT documented as of this encounter Plan of Treatment Upcoming Encounters Date Type Department Care Team ([facility] Contact Info) Description 05/04/2025 11:00 AM EDT Office Visit [facility] MEDICINE [address] [place] [address] 08/24/2025 8:00 AM EST Office Visit [facility] ADULT DENTAL [address] [place] [address] Kaitlin Seymour [address] [place] [address] documented as of this encounter Visit Diagnoses Diagnosis Gouty arthritis of right hand documented in this encounter Additional Health Concerns Assessment Noted Time PHQ-9 Depression Total Score: 0 12/08/19 23 1:54 PM EDT documented as of this encounter Care Teams Cognos Report Developer Relationship Specialty Start Date End Date Jeanne Marie FNP [address] [place] [address] PCP - General Family Medicine 07/14/24 documented as of this encounter
--- OUTSIDE RECORDS SUMMARY | 2025-04-22 11:40 | XMS_ITS | Encounter Summary ---
Author Organization [employer] Address [address] [facility] 7t [place] [address] Care Team Providers Care Brake [address] Freight Name Role Phone [place] [facility] Primary Care Provider [phone] Reason for Visit * Reason Comments Med Refill Encounter Details Date Type Department Care Team ([facility] st Contact Info) Description 07/11/2023 Refill [facility] MEDICINE [address] [place] [address] [place] [facility] [address] [place] [address] Shortness of breath Social History Tobacco Use Types Packs/Day Years [...] 05/04/2025 11:00 AM EDT Office Visit [facility] MEDICINE [address] [place] [address] 08/24/2025 8:00 AM EST Office Visit [facility] ADULT DENTAL [address] [place] [address] Kaitlin Seymour [address] [place] [address] documented as of this encounter Visit Diagnoses Diagnosis Shortness of breath documented in this encounter Additional Health Concerns Assessment Noted Time PHQ-9 Depression Total Score: 0 01/15/20 23 11:22 AM EDT documented as of this encounter Care Teams Bra[address] Freight Relationship Specialty Start Date End Date Jeanne Marie FNP [address] [place] [address] PCP - General Family Medicine 07/14/24 documented as of this encounter
--- OUTSIDE RECORDS SUMMARY | 2025-04-22 11:40 | XMS_ITS | Encounter Summary ---
Author Organization [employer] Address [address] [place] [address] 7t [place] [address] Care Team Providers Care Clinical Laboratory Aides Teacher Name Role Phone Jeanne Marie Primary Care Provider [phone] Reason for Referral * Imaging (Urgent) - Closed Specialty Diagnoses / Procedures Referred By Kailee pascual Referred To Contact Radiology Diagnoses Dizziness Tinnitus of both ears Procedures Mr Brain w/ and w/o Contrast Jeanne Marie FNP [address] [place] [address] Phone: tel: fax: [address] Phone: tel: fax: Referral ID Status Reason Start Date Expiration Date Visits Re quested Visits Authorized [id number] Closed 01/20/2025 01/20/2026 1 1 Encounter Details Date Type Department Care Team (Late st Contact Info) Description 01/20/2025 Orders Only [facility] [address] [place], [place] [phone] Jeanne Marie FNP [address] [place], [place] [phone] Dizziness (Primary Dx); Tinnitus of both ears Social History Tobacco Use Types Packs/Day Years [...] 05/04/2025 11:00 AM EDT Office Visit [facility] MEDICINE [address] [place] [address] 08/24/2025 8:00 AM EST Office Visit [facility] ADULT DENTAL [address] [place] [address] Kaitlin Seymour [address] [place] [address] documented as of this encounter Procedures Procedure Name Priority Date/Time Associated Diagnosis Comments MR BRAIN W AND WO CONTRAST Urgent 02/02/2025 10:38 AM EDT Dizziness Tinnitus of both ears documented in this encounter Results * Mr Brain w/ and w/o Contrast (02/02/2025 10:38 AM EDT) Anatomical Region Laterality Modality Brain Magnetic Resonan ce 02/02/2025 10:3 8 AM EDT Narrative 02/02/2025 1:04 PM EDT [address] [address] Magnetic Resonance Report Signed Patient: Chetan Farnsworth MR#: [id number] 91 : 1955 Acct:[id number] Age/Sex: 69 / M ADM Date: 02/02/25 Loc: HO.MRI Attending Dr: Jeanne RODRIGUEZ Ordering Physician: Jeanne Marie Date of Service: 02/02/25 Procedure(s): MR head/brain wo/w con Accession Number(s): [id number] cc: Jeanne Marie EXAMINATION: MR BRAIN/IACS WITHOUT [...] 02/02/25 1301 DD/ 1038 TD/TT: 02/02/25 1210 Rn Rehab: Procedure Note Donotuseinterpreter, Image - 02/02/2025 [place] [address] Magnetic Resonance Report Signed Patient: Chetan FarnsworthMR#: [id number] 91 : 5Acct:[id number] Age/Sex: 69 / MADM Date: 02/02/25 Loc: HO.MRI Attending Dr: Jeanne RODRIGUEZ Ordering Physician: Jeanne Marie Date of Service: 02/02/25 Procedure(s): MR head/brain wo/w con Accession Number(s): [id number] cc: Jeanne Marie EXAMINATION: MR BRAIN/IACS WITHOUT [...] 02/02/25 1301 DD/ 1038 TD/TT: 02/02/25 1210 Rn Rehab: [facility] IM MRI PROCEDURES Final Resu lt documented in this encounter Visit Diagnoses Diagnosis Dizziness- Primary Dizziness and giddiness Tinnitus of both ears Unspecified tinnitus documented in this encounter Additional Health Concerns Assessment Noted Time PHQ-9 Depression Total Score: 0 06/17/20 9:16 AM EST documented as of this encounter Care Teams Clinical Laboratory Aides Teacher Relationship Specialty Start Date End Date Jeanne Marie FNP [address] [place] [address] PCP - General Family Medicine 07/14/24 documented as of this encounter
--- OUTSIDE RECORDS SUMMARY | 2025-04-22 11:40 | XMS_ITS | Encounter Summary ---
Author Organization [employer] Address [address] [facility] 7t [place] [address] Care Team Providers Care Flatcar Whacker Name Role Phone [place] [facility] Primary Care Provider [phone] Reason for Visit * Reason Comments Med Refill Encounter Details Date Type Department Care Team ([facility] st Contact Info) Description 05/18/2024 Refill [facility] MEDICINE [address] [place] [address] [facility] [address] [place] [address] Diffuse arthralgia Social History Tobacco Use Types [...] Description 05/04/2025 11:00 AM EDT Office Visit [facility] MEDICINE [address] [place] [address] 08/24/2025 8:00 AM EST Office Visit [facility] ADULT DENTAL [address] [place] [address] Lion, Kaitlin [address] [place] [address] documented as of this encounter Visit Diagnoses Diagnosis Diffuse arthralgia documented in this encounter Additional Health Concerns Assessment Noted Time PHQ-9 Depression Total Score: 0 03/20/20 9:02 AM EDT documented as of this encounter Care Teams Flatcar Whacker Relationship Specialty Start Date End Date Jeanne Marie FNP [address] [place] [address] PCP - General Family Medicine 07/14/24 documented as of this encounter
--- OUTSIDE RECORDS SUMMARY | 2025-04-22 11:41 | XMS_ITS | Encounter Summary ---
Author Organization [facility] Address [address] [facility] 7t [place] [address] Care Team Providers Care Brush Polisher Name Role Phone Frank Jeanne [facility] Primary Care Provider [phone] Encounter Details Date Type Department Care Team (Latest Contact Info) Description 10/15/2018 Abstract [facility] CONVERSIONS Dental, Provider, DDS Social History Tobacco Use Types Packs/Day Years [...] Upcoming Encounters Date Type Department Care Team ( st Contact Info) Description 05/04/2025 11:00 AM EDT Office Visit [facility] MEDICINE [address] [place] [address] 08/24/2025 8:00 AM EST Office Visit [facility] ADULT DENTAL [address] [place] [address] Lion, Kaitlin [address] [place] [address] documented as of this encounter Visit Diagnoses Not on filedocumented in this encounter Care Teams Brush Polisher Relationship Specialty Start Date End Date Jeanne Marie FNP [address] [place] [address] PCP - General Family Medicine 07/14/24 documented as of this encounter
--- OUTSIDE RECORDS SUMMARY | 2025-04-22 11:41 | XMS_ITS | Encounter Summary ---
Author Organization [employer] Address [address] [facility] 7t [place] [address] Care Team Providers Care Worm Picker Name Role Phone [place] [facility] Primary Care Provider [phone] Reason for Visit * Reason Onset Date Comments Med Refill 07/26/2022 Patient is reque sting refill for Omeprazole 20 mg and tylenol extra strength 500 mg Encounter Details Date Type Department Care Team (Late st Contact Info) Description 07/26/2022 Refill [facility] MEDICINE [address] [place] [address] [facility] 230 [place], [place] [phone] Shortness of breath; Gastroesophageal reflux disease, unspecified whether esophagitis present Social History Tobacco Use Types Packs/Day Years Used Date Smoking Tobacco: Former Cigarettes Smokeless Tobacco: Never Sex and Gender Information Value Date Recorded [...] suspected to have Coronavirus/COVID-19? No / Unsure 07/18/2022 2:43 PM EST documented as of this encounter Miscellaneous Notes * Telephone Encounter - Marni Matias RN - 07/26/2022 10:43 AM EST T/C to [facility] pharmacy. [facility] pt picked up Albuterol sulfate inhaler and Lidocaine cream thismorning. [facility] pharmacy would need a new rx for omeprazole. Advised will request rx from assigned pcp. documented in this encounter Plan of Treatment Upcoming Encounters Date Type Department Care Team (Late st Contact Info) Description 05/04/2025 11:00 AM EDT Office Visit [facility] MEDICINE [address] [place] [address] 08/24/2025 8:00 AM EST Office Visit [facility] ADULT DENTAL [address] [place], [place] [phone] Kaitlin Seymour [address] [place] [address] documented as of this encounter Visit Diagnoses Diagnosis Shortness of breath Gastroesophageal reflux disease, unspecified whether esophagitis present documented in this encounter Care Teams Worm Picker Relationship Specialty Start Date End Date Jeanne Marie FNP [address] [place] [address] PCP - General Family Medicine 07/14/24 documented as of this encounter
--- OUTSIDE RECORDS SUMMARY | 2025-04-22 11:41 | XMS_ITS | Encounter Summary ---
Author Organization [employer] Address [address] [facility] 7t [place] [address] Care Team Providers Care Wide Piece Goods Inspector Name Role Phone [place] [facility] Primary Care Provider [phone] Reason for Visit * Reason Comments Med Refill Encounter Details Date Type Department Care Team ([facility] st Contact Info) Description 08/04/2024 Refill [facility] MEDICINE [address] [place] [address] [place] [facility] [address] [place] [address] Chronic gout of multiple sites, unspecified cause Social History Tobacco Use Types Packs/Day Years [...] Description 05/04/2025 11:00 AM EDT Office Visit [facility] MEDICINE [address] [place] [address] 08/24/2025 8:00 AM EST Office Visit [facility] ADULT DENTAL [address] [place] [address] LionAnanthKaitlin [address] [place] [address] documented as of this encounter Visit Diagnoses Diagnosis Chronic gout of multiple sites, unspecified cause documented in this encounter Additional Health Concerns Assessment Noted Time PHQ-9 Depression Total Score: 0 06/17/20 9:16 AM EST documented as of this encounter Care Teams Wide Piece Goods Inspector Relationship Specialty Start Date End Date Jeanne Marie FNP [address] [place] [address] PCP - General Family Medicine 07/14/24 documented as of this encounter
--- OUTSIDE RECORDS SUMMARY | 2025-04-22 11:41 | XMS_ITS | Encounter Summary ---
Author Organization [employer] Address [address] [facility] [address]t [place] [address] Care Team Providers Care Teachers' Assistant Name Role Phone [facility] [facility] Primary Care Provider [phone] Reason for Visit * Reason Comments Med Refill Encounter Details Date Type Department Care Team ([facility] st Contact Info) Description 12/17/2023 Refill [facility] [address] [place] [address] [facility] [address] [place] [address] Gastro-esophageal reflux disease without esophagitis Social History Tobacco Use Types Packs/Day Years Used Date Smoking Tobacco: Former Cigarettes Passive Smoke Exposure: Past Smokeless Tobacco: Never Alcohol Use Standard Drinks/Week Comments Never 0 (1 standard drink = 0.6 oz pur e alcohol) Depression Answer Date Recorded Patient Health Questionnaire-9 Score 0 12/09/2023 Patient Health Questionnaire-9 Score 0 12/09/2023 Last PHQ-9: Questionnaire Data Not on file 0 12/09/2023 Housing Stability Answer Date Recorded What is [...] Date Recorded Patient Health Questionnaire-2 Score 0 12/09/2023 Sex and Gender Information Value Date Recorded Sex Assigned at Male 05/21/2022 10:22 AM EDT Legal Sex Male 10:22 AM EDT Gender Identity Male 05/21/2022 10:22 AM EDT Sexual Orientation Straight 05/21/2022 10 :22 AM EDT documented as of this encounter Plan of Treatment Upcoming Encounters Date Type Department Care Team (Late st Contact Info) Description 05/04/2025 11:00 AM EDT Office Visit [facility] [address] [place] [address] 08/24/2025 8:00 AM EST Office Visit [facility]ULT DENTAL [address] [place] [address] Lion, Kaitlin [address] [place] [address] documented as of this encounter Visit Diagnoses Diagnosis Gastro-esophageal reflux disease without esophagitis documented in this encounter Additional Health Concerns Assessment Noted Time PHQ-9 Depression Total Score: 0 12/09/19 24 12:20 PM EDT documented as of this encounter Care Teams Teachers' Assistant Relationship Specialty Start Date End Date Jeanne Marie FNP [address] [place] [address] PCP - General Family Medicine 07/14/24 documented as of this encounter
--- OUTSIDE RECORDS SUMMARY | 2025-04-22 11:41 | XMS_ITS | Encounter Summary ---
Author Organization [employer] Address [address] [facility] [address] [place] [address] Care Team Providers Care Exhaust Equipment Operator Name Role Phone [place] [facility] Primary Care Provider [phone] Reason for Visit * Reason Comments Med Refill Patient walked in re questing refill for COLCHICINE , BISACODYL ,LORATADINE and OMEPRAZOLE Encounter Details Date Type Department Care Team (Late st Contact Info) Description 01/20/2024 Refill [facility] [address] [place] [address] [facility] [address] [place], [place] [phone] Gouty arthritis of right hand Social History Tobacco Use Types Packs/Day Years Used Date Smoking Tobacco: Former Cigarettes Passive Smoke Exposure: Past Smokeless Tobacco: Never Alcohol Use Standard Drinks/Week Comments Never 0 (1 standard drink = 0.6 oz pur e alcohol) Depression Answer Date Recorded Patient Health Questionnaire-9 Score 0 01/15/2024 Patient Health Questionnaire-9 Score 0 01/15/2024 Last PHQ-9: Questionnaire Data Not on file 0 01/15/2024 Housing Stability Answer Date Recorded What is [...] Date Recorded Patient Health Questionnaire-2 Score 0 01/15/2024 Sex and Gender Information Value Date Recorded Sex Assigned at Male 05/21/2022 10:22 AM EDT Legal Sex Male 10:22 AM EDT Gender Identity Male 05/21/2022 10:22 AM EDT Sexual Orientation Straight 05/21/2022 10 :22 AM EDT documented as of this encounter Miscellaneous Notes * Telephone Encounter - Rosetta Pedraza - 01/28/2024 1:31 PM EDT Patient walked in requesting refill for COLCHICINE , BISACODYL ,LORATADINE and OMEPRAZOLE documented in this encounter Plan of Treatment Upcoming Encounters Date Type Department Care Team (Late st Contact Info) Description 05/04/2025 11:00 AM EDT Office Visit [facility] [address] [place] [address] 08/24/2025 8:00 AM EST Office Visit [facility] ADULT DENTAL [address] [place] [address] Lion, Kaitlin [address] [place] [address] documented as of this encounter Visit Diagnoses Diagnosis Gouty arthritis of right hand documented in this encounter Additional Health Concerns Assessment Noted Time PHQ-9 Depression Total Score: 0 01/15/20 24 3:40 PM EDT documented as of this encounter Care Teams Exhaust Equipment Operator Relationship Specialty Start Date End Date Jeanne Marie FNP [address] [place] [address] PCP - General Family Medicine 07/14/24 documented as of this encounter
--- OUTSIDE RECORDS SUMMARY | 2025-04-22 11:41 | XMS_ITS | Encounter Summary ---
Author Organization [employer] [facility] Address [address] [facility] 7[address] [place] [address] Care Team Providers Care Manager Wealth Management Name Role Phone Jeanne Marie [facility] Primary Care Provider [phone] Encounter Details Date Type Department Care Team (Latest Contact Info) Description 06/27/2021 Abstract [facility] CONVERSION[facility] Dental, Provider, DDS Social History Tobacco [...] Description 05/04/2025 11:00 AM EDT Office Visit [facility] [address] [place] [address] 08/24/2025 8:00 AM EST Office Visit [facility] ADULT DENTAL [address] [place] [address] Lion, Kaitlin [address] [place] [address] documented as of this encounter Visit Diagnoses Not on filedocumented in this encounter Care Teams Manager Wealth Management Relationship Specialty Start Date End Date Jeanne Marie FNP [address] [place] [address] PCP - General Family Medicine 07/14/24 documented as of this encounter
--- OUTSIDE RECORDS SUMMARY | 2025-04-22 11:41 | XMS_ITS | Encounter Summary ---
Author Organization [employer] Address [address] [facility] [address] [place] [address] Care Team Providers Care School Fundraising Director Name Role Phone Jeanne Marie [employer] DEPARTMENT SUPERVISOR Primary Care Provider [phone] Reason for Visit * Reason Comments Med Refill Encounter Details Date Type Department Care Team (Late st Contact Info) Description 08/06/2023 Refill [facility] [address] [place] [address] Vidhya Infante MD [address] [place] [address] Gouty arthritis of right hand Social History [...] Description 05/04/2025 11:00 AM EDT Office Visit [facility] [address] [place] [address] 08/24/2025 8:00 AM EST Office Visit [facility] ADULT DENTAL [address] [place] [address] Lion, Kaitlin [address] [place] [address] documented as of this encounter Visit Diagnoses Diagnosis Gouty arthritis of right hand documented in this encounter Additional Health Concerns Assessment Noted Time PHQ-9 Depression Total Score: 0 01/15/20 23 11:22 AM EDT documented as of this encounter Care Teams School Fundraising Director Relationship Specialty Start Date End Date Jeanne Marie FNP [address] [place] [address] PCP - General Family Medicine 07/14/24 documented as of this encounter
--- OUTSIDE RECORDS SUMMARY | 2025-04-22 11:41 | XMS_ITS | Encounter Summary ---
Author Organization [employer] Address [address] [place] [address] Care Team Providers Care Speech Language Pathologist Travel Name Role Phone Frank, [facility] Primary Care Provider [phone] Reason for Visit * Reason Comments Med Refill Encounter Details Date Type Department Care Team ([facility] st Contact Info) Description 08/06/2024 Refill [facility] [address] [place] [address] [facility] [address] [place] [address] Shortness of breath Social History Tobacco Use [...] Description 05/04/2025 11:00 AM EDT Office Visit [facility] [address] [place] [address] 08/24/2025 8:00 AM EST Office Visit [facility] [address] [place] [address] Kaitlin Seymour [address] [place] [address] documented as of this encounter Visit Diagnoses Diagnosis Shortness of breath documented in this encounter Additional Health Concerns Assessment Noted Time PHQ-9 Depression Total Score: 0 06/17/20 9:16 AM EST documented as of this encounter Care Teams Speech Language Pathologist Travel Relationship Specialty Start Date End Date Jeanne Marie FNP [address] [place] [address] PCP - General Family Medicine 07/14/24 documented as of this encounter
--- OUTSIDE RECORDS SUMMARY | 2025-04-22 11:41 | XMS_ITS | Encounter Summary ---
Author Organization [employer] Address [address] [place] [address] Care Team Providers Care Stock House Worker Name Role Phone [place] [facility] Primary Care Provider [phone] Reason for Visit * Reason Comments Med Refill Patient walked in re questing refill for tramadol Encounter Details Date Type Department Care Team (Late st Contact Info) Description 02/03/2024 Refill [facility] [address] [place] [address] [facility] [address] [place] [address] Diffuse arthralgia Social History Tobacco Use Types [...] * Telephone Encounter - Rosetta Pedraza - 02/14/2024 1:49 PM EDT Patient walked in requesting refill for tramadol documented in this encounter Plan of Treatment Upcoming Encounters Date Type Department Care Team (Late st Contact Info) Description 05/04/2025 11:00 AM EDT Office Visit [facility] [address] [place] [address] 08/24/2025 8:00 AM EST Office Visit [facility] ADULT [facility] [address] [place] [address] Kaitlin Seymour [address] [place] [address] documented as of this encounter Visit Diagnoses Diagnosis Diffuse arthralgia documented in this encounter Additional Health Concerns Assessment Noted Time PHQ-9 Depression Total Score: 0 01/15/20 3:40 PM EDT documented as of this encounter Care Teams Stock House Worker Relationship Specialty Start Date End Date Jeanne Marie FNP [address] [place] [address] PCP - General Family Medicine 07/14/24 documented as of this encounter
--- OUTSIDE RECORDS SUMMARY | 2025-04-22 11:41 | XMS_ITS | Encounter Summary ---
Author Organization [employer] Address [address] [facility] 7[address] [place] [address] Care Team Providers Care Apprentice Pattern Maker Name Role Phone [place] [facility] Primary Care Provider [phone] Reason for Visit * Reason Comments Med Refill Encounter Details Date Type Department Care Team ([facility] st Contact Info) Description 08/03/2024 Refill [facility] [address] [place] [address] [place] [facility] [address] [place] [address] Chronic gout of multiple sites, unspecified cause [...] Description 05/04/2025 11:00 AM EDT Office Visit [facility] [address] [place] [address] 08/24/2025 8:00 AM EST Office Visit [facility] ADULT DENTAL [address] [place] [address] LionAnanthKaitlin [address] [place] [address] documented as of this encounter Visit Diagnoses Diagnosis Chronic gout of multiple sites, unspecified cause documented in this encounter Additional Health Concerns Assessment Noted Time PHQ-9 Depression Total Score: 0 06/17/20 9:16 AM EST documented as of this encounter Care Teams Apprentice Pattern Maker Relationship Specialty Start Date End Date Jeanne Marie FNP [address] [place] [address] PCP - General Family Medicine 07/14/24 documented as of this encounter
== END 2025-04-22 10:14 | disposition home or self-care (01) ==
LOC: HO.HHCX 10:13
PROVIDERS: Visit Provider Family Medicine
DX: M25.522 Pain in left elbow (principal)
CPT/HCPCS: 73080

== ENCOUNTER → 2025-04-22 10:13 | Outpatient (BNV) | payer OTHER, SELFPAY | PROVIDERS: Visit Provider Radiology Diagnostic Radiology | DX: M25.522 Pain in left elbow (principal); R22.32 Localized swelling, mass and lump, left upper limb; M19.022 Primary osteoarthritis, left elbow; W19.XXXA Unspecified fall, initial encounter | CPT/HCPCS: 73080 ==

== ENCOUNTER 2025-05-20 11:51 | Outpatient (AMB) | payer OTHER, SELFPAY ==
--- NOTE | 2025-05-20 11:55 | MHC.OFFVIS ---
Vital Signs 05/20/25 12:02 Height 5 ft 11 in Weight 230 lb BMI 32.1 BP 149/85 H Blood Pressure Location Rt brachial Position Sitting Pulse 98 Pulse Source Pulse Oximeter Pulse Oximetry (%) 96 Oxygen Delivery Method Room Air Intake Visit Reasons: E-FEED ADVISER: Dizziness Allergies aspirin (ASPIRIN) Allergy (Severe, Verified 05/20/25 11:56) ANAPHYLAXIS, rash HPI Comments Details: [place] is a 70-year-old male patient with a past medical history arthritis, asthma, depression, hypertension, headache, sleep problems, and memory problems who is here today for reports of dizziness. He was evaluated in vestibular rehab Clinic and was told that his symptoms were likely not related to peripheral vertigo. An MRI of the brain from 09/2023 showed chronic microangiopathy and global cerebral atrophy but otherwise was normal. He tried meclizine without any symptomatic improvement and did have a prednisone burst with possible mild improvement in his symptoms. He does have tinnitus which is nonpulsatile but described as tinnitus and continuous to both ears. An MRI of the brain with IAC protocol from 02/02/2025 showed no significant change from prior imaging and no abnormality to IAC's. Audiology evaluation at [facility] did show moderate to severe sensorineural hearing loss and hearing aids were recommended. He did have some improvement in his symptoms with a decrease to his Seroquel. Today the patient reports that his dizziness has been coming and going over the course of many years however in November of this year he had an episode of vertigo that had been similar to prior though more severe. He denies any illness that precipitated the event and he initially had some He notes that his dizziness feels like room spinning and can get worse with positional changes. It has effected his balance and in the past has fallen though falls are not common for him. He uses a cane for stability and when he is home he often uses a walker. He reports that his sleep is poor despite use of medication to help him sleep. He is not sure if he snores at night though he has been told that he snores. He does not feel well rested at night. He also feels that when he sleeps in a laying position he hes worse vertigo. Seeping in a recliner generally helps and he also feels better rested. He had a sleep study many years ago but does not recall the results. He does have headaches that vary in intensity. During any given week he averages a headache almost every day. His headaches generally last 2-3 hours and can typically be worse in the morning time. His head pain is generally holocephalic and are not associated with other symptoms such as light or sound sensitivity. He does have high pitch tinnitus that he feels may correlate with worsening of his headaches. Social: ETOH:None Other ilicit substances: None Tobacco: None Caffeine: 1 black coffee daily Hydration: Reports that he drinks at least 3 16oz bottles of water daily and often more than that [facility] Medical History (Updated 05/20/25 @ 12:48 by Carmen An CNP) Vertigo Pseudogout involving multiple joints Multilevel degenerative disc disease Crystal arthropathy of hand Gout Intermittent pain and swelling of hand Lower back pain Neck pain Pain in joint involving multiple sites History of urinary hesitancy Dysuria Elevated PSA Pre-op examination Environmental allergies Dyspnea on exertion GERD (gastroesophageal reflux disease) Asthma Surgical History Hx of umbilical hernia repair Hx of hernia repair Hx of colonoscopy Family History Father Prostate cancer Mother Alzheimer disease Sister Cancer Social History Alcohol intake: former Patient Tobacco Use Status: Former Tobacco user Current occupational status: unemployed Review of Systems Const All systems reviewed & are unremarkable except as noted in HPI and below Reports excessive sweating Endo Reports excessive sweating and Reports heat intolerance Physical Exam Vital Signs: Last Vital Signs Pulse 98 05/20/25 12:02 BP 149/85 H 05/20/25 12:02 Pulse Ox 96 05/20/25 12:02 Oxygen Delivery Method Room Air 05/20/25 12:02 BMI result Body Mass Index 32.1 Const General: cooperative, healthy appearing, comfortable and no acute distress Nutritional Appearance: well nourished Orientation/consciousness: patient oriented x3 Limitations: no limitations HEENT Head: Yes normal to inspection and Yes normocephalic Eyes General: appearance normal, both eyes and all related structures Visual Rodriguez: normal visual rodriguez by confrontation Alignment and Position: alignment normal Periorbital: periorbital findings normal Eyelids: Yes eyelids normal Conjunctivae: conjunctivae normal Sclerae: sclerae normal Back/Spine/Pelvis Other: Bilateral occipital notch tenderness and bilateral trapezius tightening Neuro General: patient oriented x3 and tone normal Cranial nerves: Yes CN's II-XII intact bilaterally and Yes Facial sensation intact/muscles of mastication intact Cognition (Neuro): normal cognition Gait exam (Neuro): Antalgic gait present and Assisted gait required Motor exam (neuro): 5/5 motor strength present throughout and no tremor noted Sensory Exam: double simultaneous stimulation for sensation normal Deep tendon reflexes (DTR's): Right triceps reflex intensity grade: 2+, Left triceps reflex intensity grade: 2+, Rt Biceps (C5, C6): 2+, Left biceps reflex intensity grade: 2+, Right brachioradialis reflex intensity grade: 2+, Left brachioradialis reflex intensity grade: 2+, Right patellar reflex intensity grade: 1+, Left patellar reflex intensity grade: 1+, Right ankle reflex intensity grade: 1+ and Left ankle reflex intensity grade: 1+ Coordination: [id number] test normal Romberg Test: Negative Pupils: Normal pupillary reactivity/response: bilateral Psych Appearance: grossly normal Mental Status: mental status grossly normal Speech and movement: Normal speech and movement present and Clear speech present Affect: normal affect Attitude: cooperative Thought process: Normal thought process present Thought content: Normal thought content present Insight: Good insight present (Psych) Judgement: Good judgement present (Psych) Assessment & Plan Assessment & Plan (1) Morning headache: Code(s): R51.9 - Headache, unspecified Category: Medical (2) Dizziness: Code(s): R42 - Dizziness and giddiness Category: Medical (3) Poor sleep: Code(s): Z72.820 - Sleep deprivation Category: Medical (4) Somnolence, daytime: Code(s): R40.0 - Somnolence Category: Medical (5) Snoring: Code(s): R06.83 - Snoring Category: Medical (6) Occipital neuralgia: Code(s): M54.81 - Occipital neuralgia Category: Medical (7) Muscle pain, myofascial: Code(s): M79.18 - Myalgia, other site Category: Medical Plan Estonian is a 70-year-old male patient with a past medical history arthritis, asthma, depression, hypertension, headache, sleep problems, and memory problems who is here today for reports of dizziness. His workup by primary care has so far been reassuring. He has had vertigo in the past though this is more persistent than what he had experienced prior. His symptoms are more severe and frequent in the morning and tend to be worse when he is laying in a flat position during the night opposed to when he sleeps in a recliner. Furthermore, he also has been experiencing some accompanying headaches. His exam today was significant for some occipital notch tenderness and tightening of the trapezius muscles. Tightening of the cervical paraspinal muscles can lead to some dizziness. Untreated sleep apnea can also lead to both headaches and feelings of dizziness during the day especially worse in the morning which he does endorse. Because he did have some improvement in his dizziness with reduction in Seroquel, I can not fully exclude that his symptoms are not medication induced. Also possible this air whole may have been causing more severe sedation leading to worsening of sleep apnea which may have improved slightly with lower dose of Seroquel. We will 1st perform a sleep study to evaluate for ARSLAN. I will follow up with him after the study. If this is negative, we may consider reviewing medication list further. Case reviewed with . No need for vascular imaging at this time. -Sleep study -Follow-up after sleep study Orders: Orders RT PSG in-lab sleep study 05/20/25 R06.83 - Snoring, R40.0 - Somnolence, R42 - Dizziness and giddiness, R51.9 - Headache, unspecified, Z72.820 - Sleep deprivation Coding Level of Care Code New Pt Level 4 (42627) Diagnoses Morning headache R51.9 Dizziness R42 Poor sleep Z72.820 Somnolence, daytime R40.0 Snoring R06.83 Occipital neuralgia M54.81 Muscle pain, myofascial M79.18
[2025-05-20 12:02] VITALS: BP 149/85; PULSE 98; O2SAT 96; BMI 32.1
--- OUTSIDE RECORDS SUMMARY | 2025-05-20 14:53 | XMS_ITS ---
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) use of opiate analgesic Active 2024-04-29 N/A Medication: Tramadol 100mg Q8H PRNIndication: degenerative disc disease of cervical and lumbar spine, gout of multiple sitesLast COMMUNITY SERVICE MANAGER Agreement: 04/14/24Additional considerations/risk factors: concurrent use of BZO (temazepam) & gabapentin Chronic pain Active 2024-04-29 N/A Gabapentin 8 00mgTramadol 50mg PRN, engaged in COMMUNITY SERVICE MANAGER Program Elevated PSA Active 2024-04-29 N/A 11/2022-Referred to urology + family hx of prostate cancer History of substance abuse Active 2024-04-29 N/A Sober x 12 years MDD (major depressive disorder), recurrent episode, mild Active 2022-10-17 N/A stableseroquel, temazepamfollows with psychPSYCH CONTINGENCY PLANLast updated: 04/30/2024Member to call for the following symptoms: Agitation/ Anxiety/ InsomniaPlanned intervention: Transfer member to [address] [place] [address]/ Hydroxyzine (Vistaril) 25mg PO q6h PRN anxiety [...] sputum production. 4. Schedule f/u with primary SALES LEAD GENERATOR in 1-2 days. Diffuse arthralgia Active 2022-10-17 [...] maintenance Active 2024-04-29 N/A C- Scope: Saw [facility] 01/2023 with note for repeat colonoscopy [...] (do not use for phone, instead use [id number]) [facility]2022 Major depressive disorder, recurrent, mildGout, unspecifiedUnspecified asthma, uncomplicatedPain in unspecified jointEssential (primary) hypertensionOther amnesiaBody mass index (bmi) 33.0-33.9, adult New patient,40-59min; chronic exacerbation, 2 stable chronic or 1 acute illness add add modifier 95 for video (do not use for phone, instead use 56697-52) [facility] [place] 10/17/2022 New patient,40-59min; chronic exacerbation, 2 stable chronic or 1 acute illness add add modifier 95 for video (do not use for phone, instead use 58074-85) [facility] [place] 10/17/2022 New patient,40-59min; chronic exacerbation, 2 stable chronic or 1 acute illness add add modifier 95 for video (do not use for phone, instead use 08930-46) [facility] [place] 10/17/2022 New patient,40-59min; chronic exacerbation, 2 stable chronic or 1 acute illness add add modifier 95 for video (do not use for phone, instead use 11067-62) [facility] [place] 10/17/2022 New patient,40-59min; chronic exacerbation, 2 stable chronic or 1 acute illness add add modifier 95 for video (do not use for phone, instead use 54213-76) [facility] [place] 10/17/2022 New patient,40-59min; chronic exacerbation, 2 stable chronic or 1 acute illness add add modifier 95 for video (do not use for phone, instead use 79831-55) [facility] [place] 10/17/2022 New patient,40-59min; chronic exacerbation, 2 stable chronic or 1 acute illness add add modifier 95 for video (do not use for phone, instead use 00281-29) [facility] [place] 10/17/2022 New patient,40-59min; chronic exacerbation, 2 stable chronic or 1 acute illness add add modifier 95 for video (do not use for phone, instead use 42000-98) [facility] [place] 10/17/2022 Estab. patient 30-39min; chronic exacerbation, 2 stable chronic or 1 acute illness add add modifier 95 for video, (do not use for phone, instead use 81683-95) [facility] [place] 04/30/2024 Major depressive disorder, recurrent, mildMorbid (severe) [...] (do not use for phone, instead use 93574-66) [facility] [place] 04/30/2024 Estab. patient 30-39min; chronic exacerbation, 2 stable chronic or 1 acute illness add add modifier 95 for video, (do not use for phone, instead use 54980-56) [facility] [place] 04/30/2024 Estab. patient 30-39min; chronic exacerbation, 2 stable chronic or 1 acute illness add add modifier 95 for video, (do not use for phone, instead use 31033-96) [facility] [place] 04/30/2024 Estab. patient 30-39min; chronic exacerbation, 2 stable chronic or 1 acute illness add add modifier 95 for video, (do not use for phone, instead use 25954-56) [facility] [place] 04/30/2024 Estab. patient 30-39min; chronic exacerbation, 2 stable chronic or 1 acute illness add add modifier 95 for video, (do not use for phone, instead use 43124-86) [facility] [place] 04/30/2024 Estab. patient 30-39min; chronic exacerbation, 2 stable chronic or 1 acute illness add add modifier 95 for video, (do not use for phone, instead use 00179-08) [facility] [place] 04/30/2024 Estab. patient 30-39min; chronic exacerbation, 2 stable chronic or 1 acute illness add add modifier 95 for video, (do not use for phone, instead use 77546-60) [facility] [place] 04/30/2024 Vital Signs Date of Collection Vitals [...] tive Time Current Smoking Status Former smoker 2025-04-23 0 Sex Male History of Procedures Procedures Service Procedure code Service date Servicing provider Phone# New patient,40-59min; chronic exacerbation, 2 stable chronic or 1 acute illness add add modifier 95 for video (do not use for phone, instead use 61287-35) [id number] 2022-10-17 No Data Available No Data Availa [...] (do not use for phone, instead use 76884-49) [id number] 2024-04-30 No Data Available No Data Availa [...] Agitation/ Anxiety/ InsomniaPlanned intervention: Transfer member to [address] [place] [address]/ Hydroxyzine (Vistaril) 25mg PO q6h PRN anxietyGoutstablecholchicine, [...] sputum production. 4. Schedule f/u with primary SALES LEAD GENERATOR in 1-2 days. Diffuse arthralgiastablept reported he [...] and lumbar spine, gout of multiple sitesLast COMMUNITY SERVICE MANAGER Agreement: 04/14/24Additional considerations/risk factors: concurrent use of BZO (temazepam) & gabapentinGeneralized gingival recession, severeSees dentist regularlyChronic painGabapentin 800mgTramadol 50mg PRN, engaged in COMMUNITY SERVICE MANAGER ProgramElevated PSA 11/2022-[facility] 01/2023 with note for repeat colonoscopy [...] Documented ([id number])Continue to see PCP. Follow-up with [facility] as needed for any acute or disease [...] modifier 95Continue to see PCP. Follow-up with [facility] as needed for any acute or disease education needs that may arise.Call if you have any questions, comments, or concerns.Keep taking your medications as prescribed. Goals Date Goal 2024-04-30 Remember to follow u p with PCP and specialists as directed. 2024-04-30 Ordered 4 prong cane Health Concerns Date Concern 2024-04-30 Visit complete using audio and video. Patient/Guardian agreed to visit via telehealth. Today, patient has chief complaint of: follow up care and comprehensive review.Reviewed Allergies, Medications, Active Medical conditions, past medical/surgical history, Social history. 2024-04-30 Most recent hospital stay(s) or ER visit(s) and precipitating factors: 07/27/23 [facility] Foreign body in eyes 2024-04-30 Open HEDIS Measure r alesha: completed 2024-04-30 Need a cane 4 prong
--- OUTSIDE RECORDS SUMMARY | 2025-05-20 14:54 | XMS_ITS | Clinical Summary ---
Author Organization [employer] [facility] [facility] Address [address] [place] [address] Care Team Providers Care Warp Knitter Helper Name Role Phone Unavailable Primary Care Provider [...]
== END 2025-05-20 12:51 | disposition home or self-care (01) ==
LOC: HO.HSM 11:52
PROVIDERS: PCP Registered Nurse; Referring Provider Registered Nurse; Visit Provider Nurse Practitioner
DX: R51.9 Headache, unspecified (principal); R42 Dizziness and giddiness; Z72.820 Sleep deprivation; R40.0 Somnolence; R06.83 Snoring; M54.81 Occipital neuralgia; M79.18 Myalgia, other site
CPT/HCPCS: 99204

== ENCOUNTER → 2025-05-20 11:51 | Outpatient (BNVA) | payer OTHER, SELFPAY | PROVIDERS: PCP Registered Nurse; Referring Provider Registered Nurse; Visit Provider Nurse Practitioner | DX: R42 Dizziness and giddiness (principal); R40.0 Somnolence; R06.83 Snoring; M54.81 Occipital neuralgia; M79.18 Myalgia, other site; Z72.820 Sleep deprivation | CPT/HCPCS: 99202 ==